=== PATIENT | male | born 1935 | race Caucasian/White ===

== ENCOUNTER 2017-11-26 12:00 | Inpatient (IN) | payer OTHER, BC ==
--- NOTE | 2017-11-26 12:06 | PDOC ---
History of Present Illness - General Chief Complaint: Weakness Stated Complaint: unable ambulate due to increasing dementia Time Seen by Provider: 11/26/17 12:06 History Source: Family Exam Limitations: Dementia - History of Present Illness Initial Comments: 11/26/17 13:00 Mr Lawrence is an 82 -year-old male brought into the emergency department via EMS with 2 of his daughters. Patient has a known history of diabetes, dementia. He has been confused for some time but has been noted over the course of this week to gradually decline significantly. The patient last went for a walk outside 6 days ago. Since then he's wanted only to lay in bed. He has not been getting up to go to the bathroom, he's been soiling himself. Patient's memory has been worsened. Patient is aggressive with his home health aid. She is unable to control him. 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 GENERAL/CONSTITUTIONAL: No: fever, chills, weakness, loss of appetite. HEAD, EYES, EARS, NOSE AND THROAT: No: change in vision, ear pain, discharge, sore throat, throat swelling. CARDIOVASCULAR: No: chest pain, lightheadedness, palpitations, syncope RESPIRATORY: No: cough, shortness of breath, wheezing, hemoptysis, stridor. GASTROINTESTINAL: No: nausea, vomiting, diarrhea, abdominal cramping, rectal bleeding, constipation. GENITOURINARY: Yes: Seated in soiled clothing No: dysuria, hematuria, frequency , urgency, flank pain. MUSCULOSKELETAL: No: back pain, neck pain, joint pain, muscle swelling or pain SKIN: Yes: buttock decubiti No: lesions, pallor, rash or easy bruising. NEUROLOGIC: Yes: Confusion, aggressive behavior No: headache, vertigo, paresthesias, weakness ENDOCRINE: No: unexplained weight gain or loss HEMATOLOGIC/LYMPHATIC: No: anemia, easy bleeding, swelling nodes. GENERAL: The patient is in no acute distress. HEAD: Normal with no signs of trauma. EYES: PERRLA, EOMI, sclera anicteric, conjunctiva clear. ENT: Ears normal, nares patent, oropharynx clear without exudates. Moist mucous membranes. NECK: Normal range of motion, supple LUNGS: Breath sounds equal, clear to auscultation bilaterally. No wheezes, and no crackles. HEART:Regular rate and rhythm, normal S1 and S2 without murmur, rub or gallop. ABDOMEN: Soft, nontender, normoactive bowel sounds. No guarding, no rebound. EXTREMITIES: Normal range of motion, no edema. No clubbing or cyanosis. No erythema, or tenderness. NEUROLOGICAL: Cranial nerves II through XII grossly intact. Studdering, labile behaviour, moves all extremities MUSCULOSKELETAL: Back non-tender to palpation, no CVA tenderness SKIN: 2 x 2 cm decubiti, skin breakdown, mild surrounding erythema Past History - Past Medical History Allergies/Adverse Reactions: Allergies Allergy/AdvReac Type Severity Reaction Status Date / Time hydrochlorothiazide Allergy Intermediate Delirium Verified 11/26/17 12:02 Penicillins Allergy Verified 11/26/17 12:02 Home Medications: Ambulatory Orders Atorvastatin Ca [Lipitor] 20 mg PO DAILY 05/09/12 Clopidogrel Bisulfate [Plavix -] 75 mg PO DAILY 05/09/12 Lisinopril [Prinivil] 10 mg PO DAILY 05/09/12 Insulin Aspart [Novolog Flexpen] 4 - 7 unit SQ QID #5 pen 01/20/17 Donepezil HCl 5 mg PO HS 11/26/17 Finasteride 5 mg PO DAILY 11/26/17 Furosemide [Lasix] 20 mg PO ASDIR 11/26/17 Insulin Glargine,Hum.rec.anlog [Lantus Solostar PEN (NF)] 15 units SQ HS Memantine HCl [Namenda Xr] 28 mg PO DAILY 11/26/17 Quetiapine Fumarate [Seroquel] 0 mg PO HS 11/26/17 Trazodone HCl 100 mg PO HS 11/26/17 Anemia: No Asthma: No Cancer: No Cardiac Disorders: Yes (stents inserted 2009) CVA: No COPD: No CHF: No Dementia: Yes Diabetes: Yes (x10 yrs) GI Disorders: No Disorders: No HTN: Yes Hypercholesterolemia: Yes Liver Disease: No Seizures: No Thyroid Disease: No - Surgical History Abdominal Surgery: Yes (Colon resection as an ) Appendectomy: Yes Cardiac Surgery: No Cholecystectomy: No Lung Surgery: No Neurologic Surgery: No Orthopedic Surgery: No - Suicide/Smoking/Psychosocial Hx Smoking History: Former smoker Have you smoked in the past 12 months: No If you are a former smoker, when did you quit?: 25 yrs Information on smoking cessation initiated: No Hx Alcohol Use: No Drug/Substance Use Hx: No Substance Use Type: None Hx Substance Use Treatment: No ED Treatment Course - LABORATORY CBC & Chemistry Diagram: 11/26/17 13:10 11/26/17 13:10 Medical Decision Making - Medical Decision Making 11/26/17 13:15 This is an 82-year-old male presented to emergency department due to rapid progressive decline in his behavior. Differential diagnosis includes but is not limited to: Progression of dementia, urinary tract infection, pneumonia Will do: Labs, urinalysis, urine culture Will do chest x-ray Will gently hydrate. Will send for blood cultures. Will reassess 11/26/17 14:29 EKG Sinus rhythm, rate of 71 bpm, left axis deviation, right bundle branch block, no ST elevations, artifact at baseline, 11/26/17 14:31 Laboratory Tests 11/26/17 11/26/17 11/26/17 13:10 13:10 13:10 WBC 8.4 Hgb 11.8 Hct 35.1 L Plt Count 219 Neutrophils % 85.5 H Lymphocytes % 7.3 L Sodium 138 Potassium 3.7 Chloride 108 H Carbon Dioxide 27 BUN 26 H Creatinine 1.1 Random Glucose 169 H D Alkaline Phosphatase 83 Troponin I Urine Ketones Negative Urine Blood 1+ H Urine Nitrite Negative Ur Leukocyte Esterase 2+ H Urine RBC 5-8 Urine WBC 80-100 Acetone, Qual Negative 11/26/17 13:10 WBC Hgb Hct Plt Count Neutrophils % Lymphocytes % Sodium Potassium Chloride Carbon Dioxide BUN Creatinine Random Glucose Alkaline Phosphatase Troponin I 0.05 Urine Ketones Urine Blood Urine Nitrite Ur Leukocyte Esterase Urine RBC Urine WBC Acetone, Qual Chest x-ray: Increased interstitial lung findings, scarring or atelectasis at the right base. Possible bronchiectasis at the left base. Prominent mediastinum. Pt is much calmer now HAs eaten Pt symptoms possibly due to UTI + baseline dementia Will give Levaquin (pt has ? allergic reaction to penicillins) Case reviewed with Hospitalists Will admit to med surg Clinical impression: UTI, initial presentation progressive decline in functioning due to underlying dementia, initial presentation *DC/Admit/Observation/Transfer Diagnosis at time of Disposition: Confusion UTI (urinary tract infection) Qualifiers: Urinary tract infection type: site unspecified Hematuria presence: without hematuria Qualified Code(s): N39.0 - Urinary tract infection, site not specified - Discharge Dispostion Condition at time of disposition: Stable Admit: Yes - Referrals - Patient Instructions - Post Discharge Activity
[2017-11-26 12:07] VITALS: BMI 24.4
[2017-11-26] MEDS ORDERED: SODIUM CHLORIDE 1,000 ML IV STA (12:34)
[2017-11-26] MEDS ORDERED: HEMOQUE TEST 1 EACH EACH ONE ×3 (13:25→17:00)
[2017-11-26 13:32] LABS: BASO % 0.3 % (0-2.0); EOS % 0.5 % (0-4.5); HEMATOCRIT 35.1 % (35.4-49); HEMOGLOBIN 11.8 GM/dl (11.7-16.9); LYMPH % 7.3 % (8-40); MCH 30.3 pg (25.7-33.7); MCHC 33.7 g/dl (32.0-35.9); MEAN CELL VOLUME 89.8 fl (80-96); MEAN PLT VOLUME 8.5 fl (7.5-11.1); MONO % 6.4 % (3.8-10.2); NEUT % 85.5 % (42.8-82.8); PLATELET COUNT 219 K/MM3 (134-434); RBC 3.91 M/mm3 (4.00-5.60); RDW 13.9 % (11.9-15.9); WHITE BLOOD COUNT 8.4 K/mm3 (4.0-10.8)
[2017-11-26 13:33] LABS: URINE BILIRUBIN Negative (NEGATIVE); URINE GLUCOSE (UA) Negative (NEGATIVE); URINE KETONE Negative (NEGATIVE); URINE NITRITE Negative (NEGATIVE); URINE PROTEIN Negative (NEGATIVE); URINE UROBILINOGEN 0.2 (0.2-1.0)
[2017-11-26 13:35] LABS: URINE APPEARANCE SL CLOUDY; URINE BLOOD 1+ (NEGATIVE); URINE COLOR AMBER; URINE LEUK ESTERASE 2+ (NEGATIVE)
[2017-11-26 13:42] LABS: ACETONE SERUM NEGATIVE (NEGATIVE)
[2017-11-26 13:48] LABS: ALBUMIN 3.2 g/dl (3.5-5.0); ALK PHOS 83 U/L (32-92); AMYLASE 76 U/L (25-125); ANION GAP 3 (8-16); BILIRUBIN,TOTAL 0.7 mg/dl (0.2-1.0); BLOOD UREA NITROGEN 26 mg/dl (7-18); CALCIUM 8.1 mg/dl (8.4-10.2); CHLORIDE 108 mmol/L (98-107); CO2 27 mmol/L (22-28); CREATININE 1.1 mg/dl (0.6-1.3); GLUCOSE,RANDOM 169 mg/dl (74-106); POTASSIUM 3.7 mmol/L (3.5-5.1); SGOT/AST 21 U/L (10-42); SGPT/ALT 18 U/L (10-40); SODIUM 138 mmol/L (136-145); TOT PROT 6.1 g/dl (6.4-8.3)
[2017-11-26 14:15] LABS: EPI CELLS FEW /HPF; URINE WBC 80-100 (0-2)
[2017-11-26 15:11] LABS: LIPASE 109 U/L (73-393)
[2017-11-26] MEDS ORDERED: INSULIN (NOVOLOG) ASPART 100 UNITS/ML 10ML VIAL ONE (18:18)
[2017-11-26] MEDS: INSULIN SLIDING SCALE (NOVOLOG) 1 VIAL SQ SCH ×2 (18:22→21:47)
--- NOTE | 2017-11-26 18:37 | EKG ---
Test Reason : Blood Pressure : / mmHG Vent. Rate : 071 BPM Atrial Rate : 071 BPM P-R Int : 138 ms QRS Dur : 140 ms QT Int : 420 ms P-R-T Axes : 008 -51 -25 degrees QTc Int : 456 ms SINUS RHYTHM WITH MARKED SINUS ARRHYTHMIA RIGHT BUNDLE BRANCH BLOCK LEFT ANTERIOR FASCICULAR BLOCK BIFASCICULAR BLOCK T WAVE ABNORMALITY, CONSIDER INFERIOR ISCHEMIA ABNORMAL ECG NO PREVIOUS ECGS AVAILABLE Confirmed by JORJE MEJIA, NGUYỄN ([id number]) on 11/26/2017 6:36:45 PM Referred By: DAVID MERA Confirmed By:NGUYỄN RECINOS MD
--- NOTE | 2017-11-26 19:19 | HP ---
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 Cardiovascular: Yes: CAD, HTN, Hyperlipdemia Endocrine: Yes: Diabetes Mellitus - Past Surgical History Past Surgical History: Yes: Appendectomy, Stent Additional Past Surgical History: Colon Resection as a child - Advance Directives Advance Directives: Yes: Living Will, Health Care Proxy - Smoking History Smoking history: Former smoker Have you smoked in the past 12 months: No If you are a former smoker, when did you quit?: 40 YEARS AGO - Alcohol/Substance Use Hx Alcohol Use: No History of Substance Use: reports: None - Social History Usual Living Arrangement: Yes: With Parent, With Child ADL: Family Assistance History of Recent Travel: No Home Medications - Allergies Allergies/Adverse Reactions: Allergies Allergy/AdvReac Type Severity Reaction Status Date / Time hydrochlorothiazide Allergy Intermediate Delirium Verified 11/26/17 12:02 Penicillins Allergy Verified 11/26/17 12:02 - Home Medications Home Medications: Ambulatory Orders Atorvastatin Ca [Lipitor] 20 mg PO DAILY 05/09/12 Clopidogrel Bisulfate [Plavix -] 75 mg PO DAILY 05/09/12 Lisinopril [Prinivil] 10 mg PO DAILY 05/09/12 Insulin Aspart [Novolog Flexpen] 4 - 7 unit SQ QID #5 pen 01/20/17 Donepezil HCl 5 mg PO HS 11/26/17 Finasteride 5 mg PO DAILY 11/26/17 Furosemide [Lasix] 20 mg PO ASDIR 11/26/17 Insulin Glargine,Hum.rec.anlog [Lantus Solostar PEN (NF)] 15 units SQ HS Memantine HCl [Namenda Xr] 28 mg PO DAILY 11/26/17 Quetiapine Fumarate [Seroquel -] 25 mg PO HS 11/26/17 Trazodone HCl 100 mg PO HS 11/26/17 Family Disease History - Family Disease History Family History: Unable to Obtain Review of Systems Unable to obtain ROS, reason: Dementia Physical Examination Vital Signs: Vital Signs Temperature 98.2 F 11/26/17 17:31 Pulse Rate 72 11/26/17 17:31 Respiratory Rate 19 11/26/17 17:31 Blood Pressure 148/62 11/26/17 17:31 O2 Sat by Pulse Oximetry (%) 95 11/26/17 17:03 Constitutional: Yes: Well Nourished, No Distress, Calm Eyes: Yes: WNL, Conjunctiva Clear, EOM Intact, PERRL HENT: Yes: WNL, Atraumatic, Normocephalic Neck: Yes: WNL, Supple, Trachea Midline Cardiovascular: Yes: Pulse Irregular, S1, S2 Labs: CBC, BMP 11/26/17 13:10 11/26/17 13:10 Hospitalist Screening - Colonoscopy Questionnaire Colonoscopy Questionnaire: Colonoscopy Questionnaire
[2017-11-26] MEDS ORDERED: PNEUMOC 13-VAL CONJ-DIP CRM/PF 0.5 ML DISP.SYRIN IM ONE (20:00)
[2017-11-26] MEDS: HEPARIN NA (PORCINE) 5,000 UNITS/ML 1ML VIAL SQ SCH (21:43)
[2017-11-26] MEDS: QUEtiapine FUMARATE 25 MG TABLET (FP) PO SCH (21:43)
[2017-11-26] MEDS: DONEPEZIL HCL 5 MG TABLET (FP) PO SCH (21:43)
[2017-11-26] MEDS: INSULIN DETEMIR 100 UNITS/ML MDV SQ SCH (21:48)
[2017-11-26] MEDS ORDERED: traZODone HCL 100 MG TABLET (FP) PO SCH (22:00)
[2017-11-27] MEDS: HEPARIN NA (PORCINE) 5,000 UNITS/ML 1ML VIAL SQ SCH ×3 (06:14→21:36)
[2017-11-27] MEDS: INSULIN SLIDING SCALE (NOVOLOG) 1 VIAL SQ SCH ×3 (06:38→21:36)
[2017-11-27 08:50] LABS: BASO % 0.4 % (0-2.0); EOS % 1.4 % (0-4.5); HEMATOCRIT 34.2 % (35.4-49); HEMOGLOBIN 11.1 GM/dl (11.7-16.9); LYMPH % 14.4 % (8-40); MCH 29.4 pg (25.7-33.7); MCHC 32.6 g/dl (32.0-35.9); MEAN CELL VOLUME 90.2 fl (80-96); MEAN PLT VOLUME 8.6 fl (7.5-11.1); MONO % 8.3 % (3.8-10.2); NEUT % 75.5 % (42.8-82.8); PLATELET COUNT 220 K/MM3 (134-434); RBC 3.79 M/mm3 (4.00-5.60); WHITE BLOOD COUNT 8.1 K/mm3 (4.0-10.8)
[2017-11-27 08:53] LABS: ALBUMIN 2.9 g/dl (3.5-5.0); ALK PHOS 73 U/L (32-92); ANION GAP 5 (8-16); BLOOD UREA NITROGEN 25 mg/dl (7-18); CALCIUM 7.9 mg/dl (8.4-10.2); CHLORIDE 112 mmol/L (98-107); CO2 24 mmol/L (22-28); GLUCOSE,RANDOM 73 mg/dl (74-106); MAGNESIUM 1.6 mg/dL (1.8-2.4); PHOSPHOROUS 3.1 mg/dl (2.5-4.6); POTASSIUM 3.2 mmol/L (3.5-5.1); SGOT/AST 19 U/L (10-42); SGPT/ALT 15 U/L (10-40); SODIUM 141 mmol/L (136-145); TOT PROT 5.5 g/dl (6.4-8.3)
[2017-11-27] MEDS: FINASTERIDE 5 MG TABLET (FP) PO SCH (09:49)
[2017-11-27] MEDS: FUROSEMIDE 20 MG TABLET (FP) PO SCH (09:49)
[2017-11-27] MEDS: LISINOPRIL 10 MG TABLET (FP) PO SCH (09:49)
[2017-11-27] MEDS: CLOPIDOGREL BISULFATE 75 MG TABLET (FP) PO SCH (09:49)
--- NOTE | 2017-11-27 11:49 | PN ---
Physical Exam: SUBJECTIVE: Patient seen and examined oob to chair. Two of his adult daughters present. He does not recognize them nor know their names (baseline). Voices no complaints. Answers no to all ROS questions. OBJECTIVE: Vital Signs Period Temp Pulse Resp BP Sys/Hernadez Pulse Ox Last 24 Hr 98 F-99.4 F 68-80 16-19 126-156/62-80 93-96 GENERAL/NEURO: A&O x 1. In no apparent distress. LUNGS: CTA HEART: Regular rate and rhythm, S1, S2 ABDOMEN: Soft, nontender, nondistended, normoactive bowel sounds, EXTREMITIES: 2+ pulses, warm, well-perfused, no edema. NEUROLOGICAL: Cranial nerves II through XII grossly intact. Normal speech, gait not observed. Laboratory Results - last 24 hr 11/26/17 11/26/17 11/26/17 13:10 13:10 13:10 WBC 8.4 RBC 3.91 L Hgb 11.8 Hct 35.1 L MCV 89.8 MCH 30.3 MCHC 33.7 RDW 13.9 Plt Count 219 MPV 8.5 Neutrophils % 85.5 H Lymphocytes % 7.3 L Monocytes % 6.4 Eosinophils % 0.5 Basophils % 0.3 Sodium 138 Potassium 3.7 Chloride 108 H Carbon Dioxide 27 Anion Gap 3 L BUN 26 H Creatinine 1.1 Creat Clearance w eGFR > 60 POC Glucometer Random Glucose 169 H D Lactic Acid Calcium 8.1 L Phosphorus Magnesium Total Bilirubin 0.7 AST 21 ALT 18 D Alkaline Phosphatase 83 Troponin I Total Protein 6.1 L Albumin 3.2 L Total Amylase 76 Lipase 109 Urine Color Johana Urine Appearance Sl cloudy Urine pH 5.0 D Ur Specific Dickens 1.015 Urine Protein Negative Urine Glucose (UA) Negative Urine Ketones Negative Urine Blood 1+ H Urine Nitrite Negative Urine Bilirubin Negative Urine Urobilinogen 0.2 Ur Leukocyte Esterase 2+ H Urine RBC 5-8 Urine WBC 80-100 Ur Epithelial Cells Few Acetone, Qual Negative 11/26/17 11/26/17 11/26/17 13:10 13:10 13:31 WBC RBC Hgb Hct MCV MCH MCHC RDW Plt Count MPV Neutrophils % Lymphocytes % Monocytes % Eosinophils % Basophils % Sodium Potassium Chloride Carbon Dioxide Anion Gap BUN Creatinine Creat Clearance w eGFR POC Glucometer [phone] Random Glucose Lactic Acid 1.1 Calcium Phosphorus Magnesium Total Bilirubin AST ALT Alkaline Phosphatase Troponin I 0.05 Total Protein Albumin Total Amylase Lipase Urine Color Urine Appearance Urine pH Ur Specific Dickens Urine Protein Urine Glucose (UA) Urine Ketones Urine Blood Urine Nitrite Urine Bilirubin Urine Urobilinogen Ur Leukocyte Esterase Urine RBC Urine WBC Ur Epithelial Cells Acetone, Qual 11/26/17 11/26/17 11/26/17 17:04 18:07 21:46 WBC RBC Hgb Hct MCV MCH MCHC RDW Plt Count MPV Neutrophils % Lymphocytes % Monocytes % Eosinophils % Basophils % Sodium Potassium Chloride Carbon Dioxide Anion Gap BUN Creatinine Creat Clearance w eGFR POC Glucometer [phone] 124 Random Glucose Lactic Acid Calcium Phosphorus Magnesium Total Bilirubin AST ALT Alkaline Phosphatase Troponin I Total Protein Albumin Total Amylase Lipase Urine Color Urine Appearance Urine pH Ur Specific Dickens Urine Protein Urine Glucose (UA) Urine Ketones Urine Blood Urine Nitrite Urine Bilirubin Urine Urobilinogen Ur Leukocyte Esterase Urine RBC Urine WBC Ur Epithelial Cells Acetone, Qual 11/27/17 11/27/17 11/27/17 06:00 06:00 06:25 WBC 8.1 RBC 3.79 L Hgb 11.1 L Hct 34.2 L MCV 90.2 MCH 29.4 MCHC 32.6 RDW 14.0 Plt Count 220 MPV 8.6 Neutrophils % 75.5 Lymphocytes % 14.4 D Monocytes % 8.3 Eosinophils % 1.4 D Basophils % 0.4 Sodium 141 Potassium 3.2 L Chloride 112 H Carbon Dioxide 24 Anion Gap 5 L BUN 25 H Creatinine 1.0 Creat Clearance w eGFR > 60 POC Glucometer 80 Random Glucose 73 L D Lactic Acid Calcium 7.9 L Phosphorus 3.1 Magnesium 1.6 L Total Bilirubin 1.0 D AST 19 ALT 15 Alkaline Phosphatase 73 Troponin I Total Protein 5.5 L Albumin 2.9 L Total Amylase Lipase Urine Color Urine Appearance Urine pH Ur Specific Dickens Urine Protein Urine Glucose (UA) Urine Ketones Urine Blood Urine Nitrite Urine Bilirubin Urine Urobilinogen Ur Leukocyte Esterase Urine RBC Urine WBC Ur Epithelial Cells Acetone, Qual Active Medications Generic Name Dose Route Start Last Admin Trade Name Freq PRN Reason Stop Dose Admin Atorvastatin Calcium 20 mg 11/27/17 22:00 Lipitor - PO HS [facility] Clopidogrel Bisulfate 75 mg 11/27/17 10:00 11/27/17 09:49 Plavix - PO 75 mg DAILY [facility] Administration Donepezil HCl 5 mg 11/26/17 22:00 11/26/17 21:43 Aricept - PO 5 mg HS [facility] Administration Finasteride 5 mg 11/27/17 10:00 11/27/17 09:49 Proscar - PO 5 mg DAILY [facility] Administration Furosemide 20 mg 11/27/17 10:00 11/27/17 09:49 Lasix - PO 20 mg DAILY [facility] Administration Heparin Sodium (Porcine) 5,000 unit 11/26/17 22:00 11/27/17 06:14 Heparin - SQ 5,000 unit TID [facility] Administration Levofloxacin 500 mg in 100 mls @ 100 mls/hr 11/27/17 10:00 11/27/17 09:49 Levaquin 500 Mg Premixed Ivpb - IVPB 100 mls/hr DAILY [facility] Administration Insulin Aspart 1 vial 11/26/17 16:30 11/27/17 06:38 Novolog Vial Sliding Scale - SQ Not Given ACHS [facility] Protocol Insulin Detemir 15 units 11/26/17 22:00 11/26/17 21:48 Levemir Vial SQ 15 units HS [facility] Administration Lisinopril 10 mg 11/27/17 10:00 11/27/17 09:49 Prinivil PO 10 mg DAILY [facility] Administration Non-Formulary Medication 28 mg 11/27/17 10:00 Memantine Hcl [Namenda Xr] PO DAILY [facility] Quetiapine Fumarate 25 mg 11/26/17 22:00 11/26/17 21:43 Seroquel - PO 25 mg HS [facility] Administration ASSESSMENT/PLAN 82 year-old male with a PMH significant for HTN, HLD, CAD s/p stents (2009), IDDM, and dementia. Admitted for metabolic encephalopathy secondary to UTI. Metabolic encephalopathy UTI --continue empiric levofloxacin --culture pending Dementia with behavior disturbance --at baseline is aggressive at times --started several days ago on Seroquel qhs by Dr. Arias --hold trazadone at night for now, continue seroquel --continue Namenda, Aricept Hypertension --continue lisinopril, lasix Hyperlipidemia --continue Lipitor Coronary artery disease s/p stents --continue Plavix IDDM --Levemir --Novolog sliding scale coverage BPH --continue Proscar DVT prophylaxis: subq heparin Physical therapy Dispo: continues to require inpatient care. Full code. Should discuss goals of care with family. Visit type - Emergency Visit Emergency Visit: Yes ED Registration Date: 11/26/17 Care time: The patient presented to the Emergency Department on the above date and was hospitalized for further evaluation of their emergent condition. - New Patient This patient is new to me today: Yes Date on this admission: 11/28/17 - Critical Care Critical Care patient: No
[2017-11-27] MEDS ORDERED: PT OWN MED DRAWER 7, Y5N ONE (12:24)
[2017-11-27] MEDS ORDERED: MAGNESIUM SULF 50% (8.12 MEQ/2 ML-1 GM VIAL) IVPB ONE (13:04)
[2017-11-27] MEDS ORDERED: POTASSIUM CHLORIDE TABS 20 MEQ TABLET.ER (FP) PO SCH (13:15)
[2017-11-27] MEDS: POTASSIUM CHLORIDE TABS 20 MEQ TABLET.ER (FP) PO SCH ×2 (13:30→19:41)
[2017-11-27] MEDS ORDERED: INSULIN (NOVOLOG) ASPART 100 UNITS/ML 10ML VIAL ONE (17:41)
[2017-11-27] MEDS: DONEPEZIL HCL 5 MG TABLET (FP) PO SCH (21:36)
[2017-11-27] MEDS: ATORVASTATIN CA 20 MG TABLET (FP) PO SCH (21:36)
[2017-11-27] MEDS: INSULIN DETEMIR 100 UNITS/ML MDV SQ SCH (21:37)
[2017-11-27] MEDS: QUEtiapine FUMARATE 25 MG TABLET (FP) PO SCH (21:37)
[2017-11-28] MEDS: INSULIN SLIDING SCALE (NOVOLOG) 1 VIAL SQ SCH ×4 (06:30→22:38)
[2017-11-28] MEDS: HEPARIN NA (PORCINE) 5,000 UNITS/ML 1ML VIAL SQ SCH ×3 (06:30→22:38)
--- NOTE | 2017-11-28 09:42 | PN ---
Physical Exam: SUBJECTIVE: Patient seen and examined, voices no complaints wants to go home OBJECTIVE:patient is a 82-year-old, with a past medical history of hypertension , hyperlipidemia, coronary artery disease S/P stents (2009), and dementia. Patient was admitted from the emergency department for metabolic encephalopathy secondary to urinary tract infection. Vital Signs Period Temp Pulse Resp BP Sys/Hernadez Pulse Ox Last 24 Hr 98.3 F-99.6 F 64-80 18-19 141-156/61-78 93-96 GENERAL: The patient is awake, alert, and oriented person and place, in no acute distress. HEAD: Normal with no signs of trauma. EYES: PERRL, extraocular movements intact, sclera anicteric, conjunctiva clear. No ptosis. ENT: Ears normal, nares patent, oropharynx clear without exudates, moist mucous membranes. NECK: Trachea midline, full range of motion, supple. LUNGS: Breath sounds equal, clear to auscultation bilaterally, no wheezes, no crackles, no accessory muscle use. HEART: Regular rate and rhythm, S1, S2 without murmur, rub or gallop. ABDOMEN: Soft, nontender, nondistended, normoactive bowel sounds, no guarding, no rebound, no hepatosplenomegaly, no masses. EXTREMITIES: 2+ pulses, warm, well-perfused, no edema. posterior distal left lower extremity, 3 cm of denuded skin noted. NEUROLOGICAL: Cranial nerves II through XII grossly intact. Normal speech, gait not observed. PSYCH: Normal mood, normal affect. SKIN: 2 cm stage II noted to right buttock, Allevyn dressing ordered, Warm, dry , normal turgor, no rashes or lesions noted Laboratory Results - last 24 hr 11/27/17 11/27/17 11/28/17 17:39 21:11 06:29 POC Glucometer 283 145 145 Active Medications Generic Name Dose Route Start Last Admin Trade Name Freq PRN Reason Stop Dose Admin Atorvastatin Calcium 20 mg 11/27/17 22:00 11/27/17 21:36 Lipitor - PO 20 mg HS [facility] Administration Clopidogrel Bisulfate 75 mg 11/27/17 10:00 11/27/17 09:49 Plavix - PO 75 mg DAILY [facility] Administration Donepezil HCl 5 mg 11/26/17 22:00 03/18/18 21:36 Aricept - PO 5 mg HS [facility] Administration Finasteride 5 mg 11/27/17 10:00 11/27/17 09:49 Proscar - PO 5 mg DAILY [facility] Administration Furosemide 20 mg 11/27/17 10:00 11/27/17 09:49 Lasix - PO 20 mg DAILY [facility] Administration Heparin Sodium (Porcine) 5,000 unit 11/26/17 22:00 11/28/17 06:30 Heparin - SQ 5,000 unit TID [facility] Administration Levofloxacin 500 mg in 100 mls @ 100 mls/hr 11/27/17 10:00 11/27/17 09:49 Levaquin 500 Mg Premixed Ivpb - IVPB 100 mls/hr DAILY [facility] Administration Insulin Aspart 1 vial 11/26/17 16:30 11/28/17 06:30 Novolog Vial Sliding Scale - SQ Not Given ACHS [facility] Protocol Insulin Detemir 15 units 11/26/17 22:00 11/27/17 21:37 Levemir Vial SQ 15 units HS [facility] Administration Lisinopril 10 mg 11/27/17 10:00 11/27/17 09:49 Prinivil PO 10 mg DAILY [facility] Administration Non-Formulary Medication 28 mg 11/27/17 10:00 Memantine Hcl [Namenda Xr] PO DAILY [facility] Quetiapine Fumarate 25 mg 11/26/17 22:00 11/27/17 21:37 Seroquel - PO 25 mg HS [facility] Administration Microbiology 11/26/17 13:10 Urine - Urine Clean Catch Urine Culture - Preliminary Presumptive Mssa (Pbp2a Neg) 11/26/17 13:10 Blood - Peripheral Venous Blood Culture - Preliminary NO GROWTH OBTAINED AFTER 24 HOURS, INCUBATION TO CONTINUE FOR 4 DAYS. 11/26/17 13:00 Blood - Peripheral Venous Blood Culture - Preliminary NO GROWTH OBTAINED AFTER 24 HOURS, INCUBATION TO CONTINUE FOR 4 DAYS. ASSESSMENT/PLAN: 1) neuro Metabolic encephalopathy - secondary to urinary tract infection, continue Levaquin - continue fall precautions dementia - Continue Seroquel, Namenda and Aricept 2) cardiovascular hypertension - continue lisinopril and lasix hyperlipidemia - continue lipitor coronary artery disease - continue plavix 3) urinary tract infection - urine culture prelim mssa, continue levaquin - pt afebrile, no leukocytosis noted BPH - continue proscar 4) endo IDDM - levemir and novolog sliding scale DVT prophylaxis: subq heparin Physical therapy Dispo: continues to require inpatient care. Full code. Should discuss goals of care with family. Visit type - Emergency Visit Emergency Visit: Yes ED Registration Date: 11/26/17 Care time: The patient presented to the Emergency Department on the above date and was hospitalized for further evaluation of their emergent condition. - New Patient This patient is new to me today: Yes Date on this admission: 11/28/17 - Critical Care Critical Care patient: No - Discharge Referral Referred to [facility] Med P.C.: No
[2017-11-28] MEDS: PATIENT'S OWN MEDICATION (NON-FORMULARY) (Memantine Hcl [Namenda Xr] 28 MG) PO SCH (10:00)
[2017-11-28 10:33] LABS: ALBUMIN 2.9 g/dl (3.5-5.0); ALK PHOS 76 U/L (32-92); ANION GAP 5 (8-16); BILIRUBIN,TOTAL 1.1 mg/dl (0.2-1.0); BLOOD UREA NITROGEN 21 mg/dl (7-18); CALCIUM 8.2 mg/dl (8.4-10.2); CHLORIDE 110 mmol/L (98-107); CO2 25 mmol/L (22-28); CREATININE 0.9 mg/dl (0.6-1.3); GLUCOSE,RANDOM 205 mg/dl (74-106); MAGNESIUM 1.7 mg/dL (1.8-2.4); PHOSPHOROUS 2.5 mg/dl (2.5-4.6); POTASSIUM 3.8 mmol/L (3.5-5.1); SGOT/AST 18 U/L (10-42); SGPT/ALT 17 U/L (10-40); SODIUM 140 mmol/L (136-145); TOT PROT 5.4 g/dl (6.4-8.3)
[2017-11-28] MEDS: FINASTERIDE 5 MG TABLET (FP) PO SCH (10:55)
[2017-11-28] MEDS: CLOPIDOGREL BISULFATE 75 MG TABLET (FP) PO SCH (10:55)
[2017-11-28] MEDS: LISINOPRIL 10 MG TABLET (FP) PO SCH (10:55)
[2017-11-28] MEDS: FUROSEMIDE 20 MG TABLET (FP) PO SCH (10:55)
[2017-11-28] MEDS ORDERED: MAGNESIUM SULFATE 2 GM in SODIUM CHLORIDE 100 ML IVPB ONE (11:13)
[2017-11-28] MEDS ORDERED: MAGNESIUM SULFATE IN WATER 2 GM/50 ML IVPB IVPB ONE (11:45)
[2017-11-28 12:57] LABS: BASO % 0.2 % (0-2.0); EOS % 0.8 % (0-4.5); HEMATOCRIT 34.7 % (35.4-49); HEMOGLOBIN 11.6 GM/dl (11.7-16.9); LYMPH % 7.8 % (8-40); MCHC 33.3 g/dl (32.0-35.9); MEAN CELL VOLUME 90.3 fl (80-96); MEAN PLT VOLUME 8.9 fl (7.5-11.1); MONO % 7.9 % (3.8-10.2); NEUT % 83.3 % (42.8-82.8); PLATELET COUNT 202 K/MM3 (134-434); RBC 3.85 M/mm3 (4.00-5.60); WHITE BLOOD COUNT 8.7 K/mm3 (4.0-10.8)
[2017-11-28] MEDS ORDERED: POTASSIUM CHLORIDE TABS 20 MEQ TABLET.ER (FP) PO ONE (13:00)
[2017-11-28] MEDS ORDERED: PT OWN MED DRAWER 7, Y5N ONE (17:31)
[2017-11-28] MEDS: QUEtiapine FUMARATE 25 MG TABLET (FP) PO SCH (22:35)
[2017-11-28] MEDS: MUPIROCIN 2% TOPICAL OINTMENT 22 GM TUBE TP SCH (22:35)
[2017-11-28] MEDS: ATORVASTATIN CA 20 MG TABLET (FP) PO SCH (22:35)
[2017-11-28] MEDS: DONEPEZIL HCL 5 MG TABLET (FP) PO SCH (22:35)
[2017-11-28] MEDS: INSULIN DETEMIR 100 UNITS/ML MDV SQ SCH (22:38)
[2017-11-29] MEDS: INSULIN SLIDING SCALE (NOVOLOG) 1 VIAL SQ SCH ×3 (06:51→17:05)
[2017-11-29] MEDS: HEPARIN NA (PORCINE) 5,000 UNITS/ML 1ML VIAL SQ SCH ×2 (06:51→14:16)
[2017-11-29] MEDS: MUPIROCIN 2% TOPICAL OINTMENT 22 GM TUBE TP SCH ×2 (08:16→10:03)
[2017-11-29] MEDS: PATIENT'S OWN MEDICATION (NON-FORMULARY) (Memantine Hcl [Namenda Xr] 28 MG) PO SCH ×2 (08:16→10:04)
[2017-11-29 08:41] LABS: BASO % 0.6 % (0-2.0); HEMATOCRIT 34.4 % (35.4-49); HEMOGLOBIN 11.3 GM/dl (11.7-16.9); MCH 29.4 pg (25.7-33.7); MCHC 32.8 g/dl (32.0-35.9); MEAN CELL VOLUME 89.7 fl (80-96); MEAN PLT VOLUME 8.2 fl (7.5-11.1); MONO % 11.1 % (3.8-10.2); NEUT % 70.3 % (42.8-82.8); PLATELET COUNT 198 K/MM3 (134-434); RBC 3.84 M/mm3 (4.00-5.60); RDW 13.6 % (11.9-15.9); WHITE BLOOD COUNT 6.9 K/mm3 (4.0-10.8)
[2017-11-29 08:47] LABS: ANION GAP 2 (8-16); BLOOD UREA NITROGEN 21 mg/dl (7-18); CHLORIDE 111 mmol/L (98-107); CO2 27 mmol/L (22-28); GLUCOSE,RANDOM 104 mg/dl (74-106); MAGNESIUM 1.7 mg/dL (1.8-2.4); PHOSPHOROUS 3.2 mg/dl (2.5-4.6); POTASSIUM 3.7 mmol/L (3.5-5.1); SODIUM 140 mmol/L (136-145)
[2017-11-29] MEDS: FINASTERIDE 5 MG TABLET (FP) PO SCH (10:03)
[2017-11-29] MEDS: LISINOPRIL 10 MG TABLET (FP) PO SCH (10:03)
[2017-11-29] MEDS: CLOPIDOGREL BISULFATE 75 MG TABLET (FP) PO SCH (10:03)
[2017-11-29] MEDS: FUROSEMIDE 20 MG TABLET (FP) PO SCH (10:03)
[2017-11-29] MEDS ORDERED: PT OWN MED DRAWER 7, Y5N ONE (10:08)
[2017-11-29] MEDS ORDERED: MAGNESIUM SULF 50% (8.12 MEQ/2 ML-1 GM VIAL) IVPB ONE (11:21)
[2017-11-29] MEDS ORDERED: MAGNESIUM SULFATE IN WATER 2 GM/50 ML IVPB IVPB ONE (11:30)
[2017-11-29 14:07] VITALS: BP 116/59; PULSE 81; TEMP 98.5
--- NOTE | 2017-11-29 14:44 | PN ---
Physical Exam: SUBJECTIVE: Patient seen and examined. No complaints on exam. Remains somewhat confused and uncooperative at times. As per daughter, this is not patient's usual baseline. She states that he is normally fully ambulatory. OBJECTIVE: Vital Signs - 24 hr 3 11/28/17 11/29/17 11/29/17 22:00 06:03 09:00 Temperature 99.1 F 98.0 F Pulse Rate 68 72 Respiratory 19 18 19 Rate Blood Pressure 147/69 142/65 O2 Sat by Pulse 94 L 95 92 L Oximetry (%) 3 11/29/17 11/29/17 10:00 14:00 Temperature 98.6 F 98.5 F Pulse Rate 83 81 Respiratory 19 19 Rate Blood Pressure 140/67 116/59 O2 Sat by Pulse 92 L 94 L Oximetry (%) GENERAL: The patient is awake, alert, and fully oriented, in no acute distress. HEAD: Normal with no signs of trauma. EYES: PERRL, extraocular movements intact, sclera anicteric, conjunctiva clear. No ptosis. ENT: Ears normal, nares patent, oropharynx clear without exudates, moist mucous membranes. NECK: Trachea midline, full range of motion, supple. LUNGS: Breath sounds equal, clear to auscultation bilaterally, no wheezes, no crackles, no accessory muscle use. HEART: Regular rate and rhythm, S1, S2 without murmur, rub or gallop. ABDOMEN: Soft, nontender, nondistended, normoactive bowel sounds, no guarding, no rebound, no hepatosplenomegaly, no masses. EXTREMITIES: 2+ pulses, warm, well-perfused, no edema. NEUROLOGICAL: Cranial nerves II through XII grossly intact. Normal speech, gait not observed. PSYCH: Normal mood, normal affect. SKIN: Warm, dry, normal turgor, no rashes or lesions noted; excoriation to left and right buttocks Laboratory Results - last 24 hr 3 11/29/17 11/29/17 11/29/17 08:00 08:00 11:54 WBC 6.9 RBC 3.84 L Hgb 11.3 L Hct 34.4 L MCV 89.7 MCH 29.4 MCHC 32.8 RDW 13.6 Plt Count 198 MPV 8.2 Neutrophils % 70.3 Lymphocytes % 16.0 D 0 Monocytes % 11.1 H Eosinophils % 2.0 D Basophils % 0.6 Sodium 140 Potassium 3.7 Chloride 111 H Carbon Dioxide 27 Anion Gap 2 L BUN 21 H Creatinine 1.0 POC Glucometer 219 Random Glucose 104 D Calcium 8.0 L Phosphorus 3.2 D Magnesium 1.7 L Active Medications 3 Generic Name Dose Route Start Last Admin Trade Name Álvaroq PRN Reason Stop Dose Admin Atorvastatin Calcium 20 mg 11/27/17 22:00 11/28/17 22:35 Lipitor - PO 20 mg HS MILTON Administration Clopidogrel Bisulfate 75 mg 11/27/17 10:00 11/29/17 10:03 Plavix - PO 75 mg DAILY MIL[facility] Administration Donepezil HCl 5 mg 11/26/17 22:00 11/28/17 22:35 Aricept - PO 5 mg HS MILTON Administration Finasteride 5 mg 11/27/17 10:00 11/29/17 10:03 Proscar - PO 5 mg DAILY [facility] Administration Furosemide 20 mg 11/27/17 10:00 11/29/17 10:03 Lasix - PO 20 mg DAILY [facility] Administration Heparin Sodium (Porcine) 5,000 unit 11/26/17 22:00 11/29/17 06:51 Heparin - SQ 5,000 unit TID MIL[facility] Administration Levofloxacin 500 mg in 100 mls @ 100 mls/hr 11/27/17 10:00 11/29/17 10:04 Levaquin 500 Mg Premixed Ivpb - IVPB 100 mls/hr DAILY [facility] Administration Insulin Aspart 1 vial 11/26/17 16:30 11/29/17 12:31 Novolog Vial Sliding Scale - SQ 4 units ACHS MILTON Administration Protocol Insulin Detemir 15 units 11/26/17 22:00 11/28/17 22:38 Levemir Vial SQ 15 units HS MILTON Administration Lisinopril 10 mg 11/27/17 10:00 11/29/17 10:03 Prinivil PO 10 mg DAILY MIL[facility] Administration Mupirocin 1 applic 11/28/17 10:30 11/29/17 10:03 Bactroban 2% Ointment - TP 1 appful BID MIL[facility] Administration Non-Formulary Medication 28 mg 11/27/17 10:00 11/29/17 10:04 Memantine Hcl [Namenda Xr] PO 28 mg DAILY [facility] Administration Quetiapine Fumarate 25 mg 11/26/17 22:00 11/28/17 22:35 Seroquel - PO 25 mg HS MILTON Administration ASSESSMENT/PLAN: 82yM with PMH dementia CAD, HTN, HLD, DM presented to the ED on 11/26/17 with altered mental status. He was found to have UTI. Metabolic encephalopathy secondary to UTI. - Urine culture with beta lactamase and resistance to fluoroquinolones - awaiting C/B from DR. Negro to discuss antibiotic selection hypomagnesia - repleted with 2g IVPB HTN/HLD/CAD - cont lisinopril, lasix, lipitor plavix BPH - cont proscar dementia - cont home namenda, aricept, seroquel DVT PPX - heparin 5000u TID FEN - tolerating po - BMP/Mag in am - low sodium diet as tolerated Dispo: Pt currently requires continued inpatient management of his emergent condition. Visit type - Emergency Visit Emergency Visit: Yes ED Registration Date: 11/26/17 Care time: The patient presented to the Emergency Department on the above date and was hospitalized for further evaluation of their emergent condition. - New Patient This patient is new to me today: Yes Date on this admission: 11/29/17 - Critical Care Critical Care patient: No
[2017-11-29] MEDS ORDERED: CEFTRIAXONE 1 G/50 ML PREMIX 50 ML IVPB ONE (15:30)
--- NOTE | 2017-11-29 16:38 | DS ---
Physical Exam: SUBJECTIVE: Patient seen and examined OBJECTIVE: Vital Signs Period Temp Pulse Resp BP Sys/Hernadez Pulse Ox Last 24 Hr 98.0 F-99.1 F 68-83 18-19 116-147/59-69 92-95 PHYSICAL EXAM GENERAL: The patient is awake, alert, and fully oriented, in no acute distress. HEAD: Normal with no signs of trauma. EYES: PERRL, extraocular movements intact, sclera anicteric, conjunctiva clear. ENT: Ears normal, nares patent, oropharynx clear without exudates, moist mucous membranes. NECK: Trachea midline, full range of motion, supple. LUNGS: Breath sounds equal, clear to auscultation bilaterally, no wheezes, no crackles, no accessory muscle use. HEART: Regular rate and rhythm, S1, S2 without murmur, rub or gallop. ABDOMEN: Soft, nontender, nondistended, normoactive bowel sounds, no guarding, no rebound, no hepatosplenomegaly, no masses. EXTREMITIES: 2+ pulses, warm, well-perfused, no edema. NEUROLOGICAL: Cranial nerves II through XII grossly intact. Normal speech, gait not observed. PSYCH: Normal mood, normal affect. SKIN: Warm, dry, normal turgor, no rashes or lesions noted. LABS Laboratory Results - last 24 hr 11/28/17 11/28/17 11/29/17 16:52 22:37 06:23 WBC RBC Hgb Hct MCV MCH MCHC RDW Plt Count MPV Neutrophils % Lymphocytes % Monocytes % Eosinophils % Basophils % Sodium Potassium Chloride Carbon Dioxide Anion Gap BUN Creatinine POC Glucometer 226 202 119 Random Glucose Calcium Phosphorus Magnesium 11/29/17 11/29/17 11/29/17 08:00 08:00 11:54 WBC 6.9 RBC 3.84 L Hgb 11.3 L Hct 34.4 L MCV 89.7 MCH 29.4 MCHC 32.8 RDW 13.6 Plt Count 198 MPV 8.2 Neutrophils % 70.3 Lymphocytes % 16.0 D Monocytes % 11.1 H Eosinophils % 2.0 D Basophils % 0.6 Sodium 140 Potassium 3.7 Chloride 111 H Carbon Dioxide 27 Anion Gap 2 L BUN 21 H Creatinine 1.0 POC Glucometer 219 Random Glucose 104 D Calcium 8.0 L Phosphorus 3.2 D Magnesium 1.7 L HOSPITAL COURSE: Date of Admission:11/26/17 Date of Discharge: 11/29/17 Discharge Summary Reason For Visit: UTI, CONFUSION Current Active Problems Confusion (Acute) UTI (urinary tract infection) (Acute) Condition: Stable - Instructions Diet, Activity, Other Instructions: Return to the emergency department for new, worsening, persistent symptoms. Resume your usual diet. Finish ALL of your antibiotics (cefuroxime) Referrals: Kannan Zimmerman MD [Primary Care Provider] - 1 Week Disposition: HOME - Home Medications Comprehensive Discharge Medication List: Ambulatory Orders Atorvastatin Ca [Lipitor] 20 mg PO DAILY 05/09/12 Clopidogrel Bisulfate [Plavix -] 75 mg PO DAILY 05/09/12 Lisinopril [Prinivil] 10 mg PO DAILY 05/09/12 Insulin Aspart [Novolog Flexpen] 4 - 7 unit SQ QID #5 pen 01/20/17 Donepezil HCl 5 mg PO HS 11/26/17 Finasteride 5 mg PO DAILY 11/26/17 Furosemide [Lasix] 20 mg PO ASDIR 11/26/17 Insulin Glargine,Hum.rec.anlog [Lantus Solostar PEN -] 15 units SQ HS 11/26/17 Memantine HCl [Namenda Xr] 28 mg PO DAILY 11/26/17 Quetiapine Fumarate [Seroquel -] 25 mg PO HS 11/26/17 Trazodone HCl 100 mg PO HS 11/26/17 Cefuroxime Axetil [Ceftin -] 250 mg PO BID #12 tablet 11/29/17
== END 2017-11-29 18:30 | disposition home or self-care (01) | DRG 689 ==
LOC: SUPCPDRO 12:00 → FER 12:00 → FM/S 15:53
PROVIDERS: ADMIT Hospitalist; ATTEND Nurse Practitioner Family
DX: N39.0 Urinary tract infection, site not specified (principal); G93.41 Metabolic encephalopathy; F03.91 Unspecified dementia, unspecified severity, with behavioral disturbance; E83.42 Hypomagnesemia; I10 Essential (primary) hypertension; E78.5 Hyperlipidemia, unspecified; I25.10 Atherosclerotic heart disease of native coronary artery without angina pectoris; E11.9 Type 2 diabetes mellitus without complications; F03.90 Unspecified dementia, unspecified severity, without behavioral disturbance, psychotic disturbance, mood disturbance, and anxiety; N40.0 Benign prostatic hyperplasia without lower urinary tract symptoms; Z79.4 Long term (current) use of insulin; Z98.61 Coronary angioplasty status; Z87.891 Personal history of nicotine dependence
CPT/HCPCS: 36415; 71045-TC-FY; 80048; 80053; 81003; 81015; 82009; 82150; 82962; 83605; 83690; 83735; 84100; 84484; 85025; 87040; 87086; 87186; 90670; 93005; 97116-GP; 97161-GP; 99282-25; J1644; J7030

== ENCOUNTER 2018-08-07 14:52 | Inpatient (IN) | payer OTHER, BC ==
[2018-08-07 15:14] VITALS: BMI 25.0
[2018-08-07 16:23] LABS: URINE APPEARANCE Clear; URINE BILIRUBIN Negative (NEGATIVE); URINE COLOR Yellow; URINE GLUCOSE (UA) Negative (NEGATIVE); URINE KETONE Negative (NEGATIVE); URINE LEUK ESTERASE 1+ (NEGATIVE); URINE NITRITE Negative (NEGATIVE); URINE PROTEIN Trace (NEGATIVE); URINE UROBILINOGEN 0.2 (0.2-1.0)
[2018-08-07 16:30] LABS: BASO % 0.4 % (0-2.0); EOS % 0.8 % (0-4.5); HEMATOCRIT 34.1 % (35.4-49); HEMOGLOBIN 11.4 GM/dl (11.7-16.9); LYMPH % 5.6 % (8-40); MCH 30.1 pg (25.7-33.7); MCHC 33.4 g/dl (32.0-35.9); MEAN CELL VOLUME 90.1 fl (80-96); MEAN PLT VOLUME 8.8 fl (7.5-11.1); MONO % 7.5 % (3.8-10.2); NEUT % 85.7 % (42.8-82.8); PLATELET COUNT 227 K/MM3 (134-434); RBC 3.79 M/mm3 (4.00-5.60); RDW 13.9 % (11.9-15.9); WHITE BLOOD COUNT 8.5 K/mm3 (4.0-10.8)
--- NOTE | 2018-08-07 16:31 | PDOC ---
History of Present Illness - General Chief Complaint: Altered Mental Status Stated Complaint: increased confusion Time Seen by Provider: 08/07/18 14:53 - History of Present Illness Initial Comments: 08/07/18 16:26 The patient is a 82 year old male with a significant PMH of GA 10 years ago s/p stents on plavix, IDDM, HLD, HTN, and dementia who presents to the emergency department brought in by daughters for increased confusion. Patient is noted to have dementia; at baseline patient recognizes people, but does not know names or locations. History provided by the daughters as the patient denies all complaints. As per the daughters, the patient's mental status has gradually declined over the last four days. Patient went for a walk with his walker four days ago as he usually does. Since then, he has been more agitated and having difficulty getting out of bed. Patient is wanting only to lay in bed. His daughter reports he only got out of bed once yesterday to go to the bathroom. Daughters have not noticed any fevers, chills, or recent cough. Patient had a bowel movement today and is urinating in his diaper, which is unusual for him as he usually gets up to use the bathroom. Patient has a home health aid. Dr. Zimmerman, the PCP, was going to visit the patient at his home two days from now, but because of his weakness, they brought him to the ED today. His daughter notes he had identical sxs in November 2017 and had a UTI. Past surgical history: Abdominal surgery as a child Allergies: Hydrocodone Dyazide, penicillin Social: Patient lives at home with . Has a home health aid. Past History - Past Medical History Allergies/Adverse Reactions: Allergies Allergy/AdvReac Type Severity Reaction Status Date / Time hydrochlorothiazide Allergy Intermediate Delirium Verified 08/07/18 15:15 Penicillins Allergy Verified 08/07/18 15:15 Home Medications: Ambulatory Orders Atorvastatin Ca [Lipitor] 20 mg PO DAILY 05/09/12 Clopidogrel Bisulfate [Plavix -] 75 mg PO DAILY 05/09/12 Lisinopril [Prinivil] 10 mg PO DAILY 05/09/12 Insulin Aspart [Novolog Flexpen] 4 - 7 unit SQ QID #5 pen 01/20/17 Furosemide [Lasix] 20 mg PO ASDIR 11/26/17 Insulin Glargine,Hum.rec.anlog [Lantus Solostar PEN -] 15 units SQ HS 11/26/17 Memantine HCl [Namenda Xr] 28 mg PO DAILY 11/26/17 Quetiapine Fumarate [Seroquel -] 25 mg PO HS 11/26/17 traZODone HCL [Trazodone HCl] 100 mg PO HS 11/26/17 Anemia: No Asthma: No Cancer: No Cardiac Disorders: Yes (stents inserted 2009) CVA: No COPD: No CHF: No Dementia: Yes Diabetes: Yes (x10 yrs) GI Disorders: No Disorders: No HTN: Yes Hypercholesterolemia: Yes Liver Disease: No Seizures: No Thyroid Disease: No - Surgical History Abdominal Surgery: Yes (Colon resection as an infant) Appendectomy: Yes Cardiac Surgery: No Cholecystectomy: No Lung Surgery: No Neurologic Surgery: No Orthopedic Surgery: No - Suicide/Smoking/Psychosocial Hx Smoking History: Former smoker Have you smoked in the past 12 months: No If you are a former smoker, when did you quit?: 40 years ago Information on smoking cessation initiated: No Hx Alcohol Use: No Drug/Substance Use Hx: No Substance Use Type: None Hx Substance Use Treatment: No Review of Systems - Review of Systems Comments:: 08/07/18 16:31 Limited 2/ dementia. *Physical Exam - Vital Signs Last Vital Signs Temp Pulse Resp BP Pulse Ox 98.4 F 95 H 16 137/63 90 L 08/07/18 14:53 08/07/18 14:53 08/07/18 14:53 08/07/18 14:53 08/07/18 14:53 - Physical Exam Comments: 08/07/18 16:31 GENERAL: Awake, alert, oriented to name only, in no acute distress HEAD: No signs of trauma EYES: PERRLA, EOMI, sclera anicteric, conjunctiva clear ENT: Oropharynx clear without exudates. Moist mucosa NECK: Normal ROM, supple, no lymphadenopathy, JVD, or masses LUNGS: Breath sounds equal, clear to auscultation bilaterally. No wheezes, and no crackles HEART: Regular rate and rhythm, normal S1 and S2, no murmurs, rubs or gallops ABDOMEN: Soft, nontender, normoactive bowel sounds. No guarding, no rebound. No masses RECTAL: temp 100.2 EXTREMITIES: Normal range of motion, no edema. No clubbing or cyanosis. No cords, erythema, or tenderness NEUROLOGICAL: Normal speech, cranial nerves intact, global weakness b/l, normal sensation, unable to get out of the stretcher w/o 2 person assistance. SKIN: Warm, Dry, normal turgor, no rashes or lesions noted. Heart Score/ECG Review #1 08/07/18 16:33 Twelve-lead EKG was performed and reviewed by me. Sinus rhythm with PVCs. Rate 76. Left axis deviation. Right bundle branch block and bifascicular block. When compared to EKG from 11/26/2017, no significant changes. ED Treatment Course - LABORATORY CBC & Chemistry Diagram: 08/08/18 07:43 08/08/18 07:43 - ADDITIONAL ORDERS Additional order review: Laboratory Results 08/07/18 16:00 Urine Color Yellow Urine Appearance Clear Urine pH 5.0 Ur Specific [place] 1.020 Urine Protein Trace Urine Glucose (UA) Negative Urine Ketones Negative Urine Blood Trace-intact H Urine Nitrite Negative Urine Bilirubin Negative Urine Urobilinogen 0.2 Ur Leukocyte Esterase 1+ H - RADIOLOGY Radiology Studies Ordered: Category Date Time Status HEAD CT WITHOUT CONTRAST [CT] Stat CT Scan 08/07/18 15:10 Completed CHEST X-RAY PORTABLE* [RAD] Stat Radiology 08/07/18 15:09 Completed Medical Decision Making - Medical Decision Making 08/07/18 16:34 83yo M with MMP including dementia, CAD, DM presents to the ED with generalized weakness and increased confusion over 4 days. Pt borderline febrile to 100.2, tylenol IV given Most likely infectious UTI vs PNA. Pt noted to be hypoxic, but has no cough and no crackles on exam DDx also includes metabolic vs ischemic pathology EKG at baseline Plan for labs, UA, XR, CTH. Anticipate admission 08/07/18 17:31 +UA for UTI CXR with possible PNA? Pt persistently hypoxic to 90%, corrects to 98% with 2L CTA chest ordered to r/o PE given hypoxia, trop leak and in setting of recent immobility. CTA may also help r/o infiltrate as possible infectious source. Discussed with daughter Judit, pt has no hx IV contrast allergy Covered empirically for UTI +/- PNA with vancomycin & aztreonem - previous urine culture resistant to levoquin. Pt has PCN allergy Glucose elevated to 200s, pt given 5 insulin sq, eating dinner now Case discussed with KALEY Prado and Dr. Oliveros, pt accepted for admission, they request admission under Dr Davila Case discussed in detail with admitting physician including history, physical exam and ancillary studies. Admitting physician has assumed care for the patient, will follow all pending diagnostics and will complete the evaluation and treatment. *DC/Admit/Observation/Transfer Diagnosis at time of Disposition: UTI (urinary tract infection), Hypoxia, Fever - Discharge Dispostion Condition at time of disposition: Stable Decision to Admit order: Yes - Referrals - Patient Instructions - Post Discharge Activity - Attestations Physician Attestion: 08/07/18 17:34 I, Dr. Tono Vega MD, attest that this document has been prepared under my direction and personally reviewed by me in its entirety. I further attest, that it accurately reflects all work, treatment, procedures and medical decision -making performed by me.
[2018-08-07 16:34] LABS: ALK PHOS 93 U/L (32-92); ANION GAP 8 MMOL/L (8-16); BILIRUBIN,TOTAL 0.7 mg/dl (0.2-1.0); BLOOD UREA NITROGEN 26 mg/dl (7-18); CALCIUM 8.3 mg/dl (8.4-10.2); CHLORIDE 106 mmol/L (98-107); CO2 27 mmol/L (22-28); CREATININE 1.1 mg/dl (0.6-1.3); GLUCOSE,RANDOM 255 mg/dl (74-106); SGOT/AST 19 U/L (10-42); SGPT/ALT 15 U/L (10-40); SODIUM 141 mmol/L (136-145); TOT PROT 6.1 g/dl (6.4-8.3)
[2018-08-07] MEDS ORDERED: ACETAMINOPHEN 1000 MG/100 ML VIAL (NON FORMULARY) IVPB ONE (16:37)
[2018-08-07] MEDS ORDERED: ACETAMINOPHEN INJECTION 100 ML IVPB ONE (16:44)
[2018-08-07 16:55] LABS: URINE WBC 20-40 (0-2)
[2018-08-07 16:56] LABS: AMORP URATES 2+ /hpf (NONE SEEN); URINE BACTERIA 3+ /hpf (NEGATIVE)
[2018-08-07] MEDS ORDERED: VANCOMYCIN 1,000 MG in DEXTROSE 5%-WATER - 250 ML IVPB ONE (17:24)
[2018-08-07] MEDS ORDERED: AZTREONAM 1 GM VIAL (RESTRICTED TO ID) IVPB ONE (17:25)
[2018-08-07] MEDS ORDERED: INSULIN REGULAR HUMAN 100 UNITS/ML *VIAL ONE (17:26)
[2018-08-07] MEDS ORDERED: VANCOMYCIN 1,000 MG VIAL (RESTRICTED TO ID ONLY) ONE (17:32)
[2018-08-07] MEDS ORDERED: INSULIN REGULAR HUMAN 100 UNITS/ML *VIAL SQ ONE (17:45)
[2018-08-07] MEDS: QUEtiapine FUMARATE 25 MG TABLET (FP) PO SCH (21:51)
[2018-08-07] MEDS: HEPARIN NA (PORCINE) 5,000 UNITS/ML 1ML VIAL SQ SCH (21:51)
[2018-08-07] MEDS: traZODone HCL 50 MG TABLET (FP) PO SCH (21:51)
[2018-08-07] MEDS: ATORVASTATIN CA 20 MG TABLET (FP) PO SCH (21:51)
[2018-08-07] MEDS: INSULIN (LEVEMIR) 100 UNITS/ML UNITS SQ SCH (22:26)
[2018-08-08] MEDS ORDERED: AZTREONAM 1 GM in DEXTROSE 5%-WATER - 50 ML IVPB ONE (04:00)
[2018-08-08] MEDS ORDERED: AZTREONAM 1 GM in DEXTROSE 5%-WATER - 50 ML IVPB SCH (04:00)
--- NOTE | 2018-08-08 06:05 | HP ---
Admitting History and Physical - Primary Care Physician PCP: Kannan Zimmerman - Admission Chief Complaint: AMS History of Present Illness: This is a 83 y/o man from home with a PMHx of: Dementia, [place] s/p Stents (10 yrs ago, on Plavix), HTN, HLD, IDDM, Former Smoker. Who present to the ED with his daughters for AMS, increased agitation and generalized weakness. Per the ED record: Patient is noted to have dementia; at baseline patient recognizes people, but does not know names or locations. History provided by the daughters as the patient denies all complaints. As per the daughters, the patient's mental status has gradually declined over the last four days. Patient went for a walk with his walker four days ago as he usually does. Since then, he has been more agitated and having difficulty getting out of bed. Patient is wanting only to lay in bed. His daughter reports he only got out of bed once yesterday to go to the bathroom. Daughters have not noticed any fevers, chills, or recent cough. Patient had a bowel movement today and is urinating in his diaper, which is unusual for him as he usually gets up to use the bathroom. Patient has a home health aid. Dr. Zimmerman, the PCP, was going to visit the patient at his home two days from now, but because of his weakness, they brought him to the ED today. His daughter notes he had identical sxs in November 2017 and had a UTI. 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: Dementia Cardiovascular: Yes: CAD, HTN, Hyperlipdemia Endocrine: Yes: Diabetes Mellitus - Past Surgical History Past Surgical History: Yes: Appendectomy, Stent - Advance Directives Advance Directives: Yes: Health Care Proxy - Smoking History Smoking history: Former smoker Have you smoked in the past 12 months: No If you are a former smoker, when did you quit?: 40 years ago - Alcohol/Substance Use Hx Alcohol Use: No History of Substance Use: reports: None - Social History ADL: Family Assistance History of Recent Travel: No Home Medications - Allergies Allergies/Adverse Reactions: Allergies Allergy/AdvReac Type Severity Reaction Status Date / Time hydrochlorothiazide Allergy Intermediate Delirium Verified 08/07/18 15:15 Penicillins Allergy Verified 08/07/18 15:15 - Home Medications Home Medications: Ambulatory Orders Atorvastatin Ca [Lipitor] 20 mg PO DAILY 05/09/12 Clopidogrel Bisulfate [Plavix -] 75 mg PO DAILY 05/09/12 Lisinopril [Prinivil] 10 mg PO DAILY 05/09/12 Insulin Aspart [Novolog Flexpen] 4 - 7 unit SQ QID #5 pen 01/20/17 Furosemide [Lasix] 20 mg PO ASDIR 11/26/17 Insulin Glargine,Hum.rec.anlog [Lantus Solostar PEN -] 15 units SQ HS 11/26/17 Memantine HCl [Namenda Xr] 28 mg PO DAILY 11/26/17 Quetiapine Fumarate [Seroquel -] 25 mg PO HS 11/26/17 traZODone HCL [Trazodone HCl] 100 mg PO HS 11/26/17 Family Disease History - Family Disease History Family History: Unable to Obtain Review of Systems Unable to obtain ROS, reason: Dementia Physical Examination Vital Signs: Vital Signs Temperature 98 F 08/07/18 20:46 Pulse Rate 62 08/07/18 20:46 Respiratory Rate 18 08/07/18 20:46 Blood Pressure 125/68 08/07/18 20:46 O2 Sat by Pulse Oximetry (%) 96 08/07/18 20:46 Constitutional: Yes: No Distress, Calm Eyes: Yes: Conjunctiva Clear, PERRL HENT: Yes: WNL, Atraumatic, Normocephalic Neck: Yes: WNL, Supple, Trachea Midline Cardiovascular: Yes: Regular Rate and Rhythm, S1, S2 Respiratory: Yes: WNL, Regular, CTA Bilaterally Gastrointestinal: Yes: WNL, Normal Bowel Sounds, Soft Renal/: Yes: Incontinence Breast(s): Yes: WNL Musculoskeletal: Yes: WNL Extremities: Yes: WNL Edema: No Peripheral Pulses WNL: Yes Neurological: Yes: Confusion, Cran Nerves II-XII Intact ...Motor Strength: LUE (4/5), LLE (4/5), RUE (4/5), RLE (4/5) Psychiatric: Yes: Other (Lethargic) Labs: CBC, BMP 08/07/18 16:00 08/07/18 16:00 Laboratory Results - last 24 hr 08/07/18 08/07/18 08/07/18 16:00 16:00 16:00 WBC 8.5 RBC 3.79 L Hgb 11.4 L Hct 34.1 L MCV 90.1 MCH 30.1 MCHC 33.4 RDW 13.9 Plt Count 227 MPV 8.8 Absolute Neuts (auto) 7.3 Neutrophils % 85.7 H D Lymphocytes % 5.6 L D Monocytes % 7.5 Eosinophils % 0.8 Basophils % 0.4 Sodium 141 Potassium 4.0 Chloride 106 Carbon Dioxide 27 Anion Gap 8 BUN 26 H Creatinine 1.1 Creat Clearance w eGFR > 60 POC Glucometer Random Glucose 255 H D Lactic Acid Calcium 8.3 L Total Bilirubin 0.7 AST 19 ALT 15 Alkaline Phosphatase 93 H Creatine Kinase Troponin I Total Protein 6.1 L Albumin 3.0 L Urine Color Yellow Urine Appearance Clear Urine pH 5.0 Ur Specific [place] 1.020 Urine Protein Trace Urine Glucose (UA) Negative Urine Ketones Negative Urine Blood Trace-intact H Urine Nitrite Negative Urine Bilirubin Negative Urine Urobilinogen 0.2 Ur Leukocyte Esterase 1+ H Urine RBC 2-5 Urine WBC 20-40 Amorphous Urates 2+ Urine Bacteria 3+ 08/07/18 08/07/18 08/07/18 16:00 16:34 17:18 WBC RBC Hgb Hct MCV MCH MCHC RDW Plt Count MPV Absolute Neuts (auto) Neutrophils % Lymphocytes % Monocytes % Eosinophils % Basophils % Sodium Potassium Chloride Carbon Dioxide Anion Gap BUN Creatinine Creat Clearance w eGFR POC Glucometer [id number] Random Glucose Lactic Acid 1.7 Calcium Total Bilirubin AST ALT Alkaline Phosphatase Creatine Kinase Troponin I 0.09 H D Total Protein Albumin Urine Color Urine Appearance Urine pH Ur Specific [place] Urine Protein Urine Glucose (UA) Urine Ketones Urine Blood Urine Nitrite Urine Bilirubin Urine Urobilinogen Ur Leukocyte Esterase Urine RBC Urine WBC Amorphous Urates Urine Bacteria 08/07/18 08/07/18 23:35 23:35 WBC RBC Hgb Hct MCV MCH MCHC RDW Plt Count MPV Absolute Neuts (auto) Neutrophils % Lymphocytes % Monocytes % Eosinophils % Basophils % Sodium Potassium Chloride Carbon Dioxide Anion Gap BUN Creatinine Creat Clearance w eGFR POC Glucometer Random Glucose Lactic Acid Calcium Total Bilirubin AST ALT Alkaline Phosphatase Creatine Kinase 110 Troponin I 0.09 H Total Protein Albumin Urine Color Urine Appearance Urine pH Ur Specific [place] Urine Protein Urine Glucose (UA) Urine Ketones Urine Blood Urine Nitrite Urine Bilirubin Urine Urobilinogen Ur Leukocyte Esterase Urine RBC Urine WBC Amorphous Urates Urine Bacteria Intake & Output 08/05/18 08/06/18 08/07/18 08/08/18 23:59 23:59 23:59 23:59 Output Total 200 Balance -200 Weight 83.915 kg Current Medications Generic Name Dose Route Start Last Admin Trade Name Freq PRN Reason Stop Dose Admin Atorvastatin Calcium 20 mg 08/07/18 22:00 08/07/18 21:51 Lipitor - PO 20 mg HS [facility] Administration Clopidogrel Bisulfate 75 mg 08/08/18 10:00 Plavix - PO DAILY [facility] Heparin Sodium (Porcine) 5,000 unit 08/07/18 22:00 08/07/18 21:51 Heparin - SQ 5,000 unit TID [facility] Administration Vancomycin HCl 1,250 mg/ 250 mls @ 250 mls/2 hr 08/08/18 10:00 Dextrose IVPB Q24H [facility] Protocol Aztreonam 1 gm/ Dextrose 50 mls @ 100 mls/hr 08/08/18 04:00 IVPB Q8H-IV [facility] Protocol Insulin Aspart 1 vial 08/08/18 07:00 Novolog Vial Sliding Scale - SQ TIDAC [facility] Protocol Insulin Detemir 15 units 08/07/18 22:00 08/07/18 22:26 Levemir Vial SQ 15 units HS [facility] Administration Lisinopril 10 mg 08/08/18 10:00 Prinivil PO DAILY [facility] Non-Formulary Medication 28 mg 08/08/18 10:00 Memantine Hcl [Namenda Xr] PO DAILY [facility] Quetiapine Fumarate 25 mg 08/07/18 22:00 08/07/18 21:51 Seroquel - PO 25 mg HS [facility] Administration Trazodone HCl 100 mg 08/07/18 22:00 08/07/18 21:51 Desyrel - PO 100 mg HS [facility] Administration Imaging - Results Chest X-ray: Report Reviewed, Image Reviewed Cat Scan: Report Reviewed, Image Reviewed EKG: Image Reviewed Problem List - Problems (1) Sepsis Code(s): A41.9 - SEPSIS, UNSPECIFIED ORGANISM (2) Complicated UTI (urinary tract infection) Code(s): N39.0 - URINARY TRACT INFECTION, SITE NOT SPECIFIED (3) Community acquired pneumonia Code(s): J18.9 - PNEUMONIA, UNSPECIFIED ORGANISM (4) Hypoxia Code(s): R09.02 - HYPOXEMIA (5) Metabolic encephalopathy Code(s): G93.41 - METABOLIC ENCEPHALOPATHY (6) Fever Code(s): R50.9 - FEVER, UNSPECIFIED (7) CAD (coronary artery disease) Code(s): I25.10 - ATHSCL HEART DISEASE OF [place] CORONARY ARTERY W/O ANG PCTRS (8) Dementia Code(s): F03.90 - UNSPECIFIED DEMENTIA WITHOUT BEHAVIORAL DISTURBANCE (9) Diabetes mellitus Code(s): E11.9 - TYPE 2 DIABETES MELLITUS WITHOUT COMPLICATIONS (10) HLD (hyperlipidemia) Code(s): E78.5 - HYPERLIPIDEMIA, UNSPECIFIED (11) HTN (hypertension) Code(s): I10 - ESSENTIAL (PRIMARY) HYPERTENSION (12) Hyperglycemia Code(s): R73.9 - HYPERGLYCEMIA, UNSPECIFIED Assessment/Plan This is a 83 y/o man with a PMHx of: Dementia, [place] (Stents 10yrs ago), HTN, HLD, IDDM, Former Smoker. Admitted for Sepsis secondary to Complicated UTI, CAP, Acute Metabolic Encephalopathy for further evaluation of their emergent condition. Plan: 1. Sepsis Likely secondary to Complicated UTI vs Pneumonia Sepsis Criteria met V: T max 100.2, Spo2 90%, BUN 26, +3 leukocyte esterase,,+3 bacteria qSOFA 1 UA- +3 leukoctye esterase, +3 bacteria, 20-40 WBCs Urine Culture-pending CURB65 3 Vancomycin, Aztreonam given in ED, will continue +Staphylococcus Aureus urine culture 11/26/17 Appreciate ID consult Monitor CBC Monitor vitals Tylenol prn 2. Community Acquired Pneumonia CURB65 3 Chest Xray- coarse lung changes with linear scarring and or atelectasis, ? infiltrate left base CTA- no PE or aortic dissection, pulmonary fibrosis with developing upper lung pneumonitis Blood Cultures-pending Continue Vancomycin, Aztreonam Appreciate ID consult O2 CBC, BMP in am Vitals 3. Acute Metabolic Encephalopathy Likely secondary to UTI Neurochecks Fall Precautions 4. Cardiovascular: HTN, HLD, CAD, [place] s/p Stents Stable EKG reviewed no change from prior study Troponin 0.09 slightly elevated from baseline, likely due to Sepsis, Hypoxia Serial Enzymes Consider Cardiology consult if Troponin level increases Continue home meds Monitor renal function, LFTs O2 5. Endocrinology- IDDM not well controlled, likely due to infection BGMs ISS Continue home meds 6. Dementia Continue home meds FEN PO fluids as tolerated Replete lytes Low Na, Diabetic Diet DVT ppx OOB SCDs Heparin SQ Code Status: Full Code, HCP Dispo: Requires Inpatient Care Visit type - Emergency Visit Emergency Visit: Yes ED Registration Date: 08/07/18 Care time: The patient presented to the Emergency Department on the above date and was hospitalized for further evaluation of their emergent condition. - New Patient This patient is new to me today: Yes Date on this admission: 08/07/18 - Critical Care Critical Care patient: No
[2018-08-08] MEDS: HEPARIN NA (PORCINE) 5,000 UNITS/ML 1ML VIAL SQ SCH ×3 (06:27→21:06)
[2018-08-08] MEDS: INSULIN SLIDING SCALE (NOVOLOG) 1 VIAL SQ SCH ×3 (06:27→16:33)
[2018-08-08 08:15] LABS: BASO % 0.3 % (0-2.0); EOS % 1.3 % (0-4.5); HEMATOCRIT 30.5 % (35.4-49); LYMPH % 6.6 % (8-40); MCH 29.2 pg (25.7-33.7); MCHC 32.7 g/dl (32.0-35.9); MEAN CELL VOLUME 89.4 fl (80-96); MEAN PLT VOLUME 8.9 fl (7.5-11.1); MONO % 8.6 % (3.8-10.2); NEUT % 83.2 % (42.8-82.8); PLATELET COUNT 212 K/MM3 (134-434); RBC 3.41 M/mm3 (4.00-5.60); RDW 13.8 % (11.9-15.9); WHITE BLOOD COUNT 8.5 K/mm3 (4.0-10.8)
--- NOTE | 2018-08-08 08:23 | PN ---
Physical Exam: SUBJECTIVE: Patient seen and examined at bedside. OBJECTIVE: Vital Signs Period Temp Pulse Resp BP Sys/Hernadez Pulse Ox Last 24 Hr 98 F-101 F 62-95 16-18 125-137/58-78 90-98 GENERAL: The patient is awake. Makes eye contact, shook hands, speech nonsensical syllables LUNGS: Breath sounds equal, clear to auscultation bilaterally, no wheezes, no crackles, no accessory muscle use. HEART: Regular rate and rhythm, S1, S2 ABDOMEN: Soft, nontender, nondistended, EXTREMITIES: 2+ pulses, warm, well-perfused, no edema. NEUROLOGICAL: Cranial nerves II through XII grossly intact. Laboratory Results - last 24 hr 08/07/18 08/07/18 08/07/18 16:00 16:00 16:00 WBC 8.5 RBC 3.79 L Hgb 11.4 L Hct 34.1 L MCV 90.1 MCH 30.1 MCHC 33.4 RDW 13.9 Plt Count 227 MPV 8.8 Absolute Neuts (auto) 7.3 Neutrophils % 85.7 H D Lymphocytes % 5.6 L D Monocytes % 7.5 Eosinophils % 0.8 Basophils % 0.4 Sodium 141 Potassium 4.0 Chloride 106 Carbon Dioxide 27 Anion Gap 8 BUN 26 H Creatinine 1.1 Creat Clearance w eGFR > 60 POC Glucometer Random Glucose 255 H D Lactic Acid Calcium 8.3 L Total Bilirubin 0.7 AST 19 ALT 15 Alkaline Phosphatase 93 H Creatine Kinase Troponin I Total Protein 6.1 L Albumin 3.0 L Urine Color Yellow Urine Appearance Clear Urine pH 5.0 Ur Specific [place] 1.020 Urine Protein Trace Urine Glucose (UA) Negative Urine Ketones Negative Urine Blood Trace-intact H Urine Nitrite Negative Urine Bilirubin Negative Urine Urobilinogen 0.2 Ur Leukocyte Esterase 1+ H Urine RBC 2-5 Urine WBC 20-40 Amorphous Urates 2+ Urine Bacteria 3+ 08/07/18 08/07/18 08/07/18 16:00 16:34 17:18 WBC RBC Hgb Hct MCV MCH MCHC RDW Plt Count MPV Absolute Neuts (auto) Neutrophils % Lymphocytes % Monocytes % Eosinophils % Basophils % Sodium Potassium Chloride Carbon Dioxide Anion Gap BUN Creatinine Creat Clearance w eGFR POC Glucometer [phone] Random Glucose Lactic Acid 1.7 Calcium Total Bilirubin AST ALT Alkaline Phosphatase Creatine Kinase Troponin I 0.09 H D Total Protein Albumin Urine Color Urine Appearance Urine pH Ur Specific [place] Urine Protein Urine Glucose (UA) Urine Ketones Urine Blood Urine Nitrite Urine Bilirubin Urine Urobilinogen Ur Leukocyte Esterase Urine RBC Urine WBC Amorphous Urates Urine Bacteria 08/07/18 08/07/18 08/08/18 23:35 23:35 06:22 WBC RBC Hgb Hct MCV MCH MCHC RDW Plt Count MPV Absolute Neuts (auto) Neutrophils % Lymphocytes % Monocytes % Eosinophils % Basophils % Sodium Potassium Chloride Carbon Dioxide Anion Gap BUN Creatinine Creat Clearance w eGFR POC Glucometer 160 Random Glucose Lactic Acid Calcium Total Bilirubin AST ALT Alkaline Phosphatase Creatine Kinase 110 Troponin I 0.09 H Total Protein Albumin Urine Color Urine Appearance Urine pH Ur Specific [place] Urine Protein Urine Glucose (UA) Urine Ketones Urine Blood Urine Nitrite Urine Bilirubin Urine Urobilinogen Ur Leukocyte Esterase Urine RBC Urine WBC Amorphous Urates Urine Bacteria 08/08/18 07:43 WBC 8.5 RBC 3.41 L Hgb 10.0 L Hct 30.5 L MCV 89.4 MCH 29.2 MCHC 32.7 RDW 13.8 Plt Count 212 MPV 8.9 Absolute Neuts (auto) 7.1 Neutrophils % 83.2 H Lymphocytes % 6.6 L Monocytes % 8.6 Eosinophils % 1.3 Basophils % 0.3 Sodium Potassium Chloride Carbon Dioxide Anion Gap BUN Creatinine Creat Clearance w eGFR POC Glucometer Random Glucose Lactic Acid Calcium Total Bilirubin AST ALT Alkaline Phosphatase Creatine Kinase Troponin I Total Protein Albumin Urine Color Urine Appearance Urine pH Ur Specific [place] Urine Protein Urine Glucose (UA) Urine Ketones Urine Blood Urine Nitrite Urine Bilirubin Urine Urobilinogen Ur Leukocyte Esterase Urine RBC Urine WBC Amorphous Urates Urine Bacteria Active Medications Generic Name Dose Route Start Last Admin Trade Name Freq PRN Reason Stop Dose Admin Atorvastatin Calcium 20 mg 08/07/18 22:00 08/07/18 21:51 Lipitor - PO 20 mg HS [facility] Administration Clopidogrel Bisulfate 75 mg 08/08/18 10:00 Plavix - PO DAILY [facility] Heparin Sodium (Porcine) 5,000 unit 08/07/18 22:00 08/08/18 06:27 Heparin - SQ 5,000 unit TID [facility] Administration Vancomycin HCl 1,250 mg/ 250 mls @ 250 mls/2 hr 08/08/18 10:00 Dextrose IVPB Q24H [facility] Protocol Aztreonam 1 gm/ Dextrose 50 mls @ 100 mls/hr 08/08/18 04:00 IVPB Q8H-IV [facility] Protocol Insulin Aspart 1 vial 08/08/18 07:00 08/08/18 06:27 Novolog Vial Sliding Scale - SQ 2 units TIDAC [facility] Administration Protocol Insulin Detemir 15 units 08/07/18 22:00 08/07/18 22:26 Levemir Vial SQ 15 units HS [facility] Administration Lisinopril 10 mg 08/08/18 10:00 Prinivil PO DAILY [facility] Non-Formulary Medication 28 mg 08/08/18 10:00 Memantine Hcl [Namenda Xr] PO DAILY [facility] Quetiapine Fumarate 25 mg 08/07/18 22:00 08/07/18 21:51 Seroquel - PO 25 mg HS [facility] Administration Trazodone HCl 100 mg 08/07/18 22:00 08/07/18 21:51 Desyrel - PO 100 mg HS [facility] Administration ASSESSMENT/PLAN 83 year-old male with a PMH significant for HTN, HLD, CAD s/p [place] s/p stents on Plavix, IDDM, and dementia x 2 years. Admitted for sepsis DM. Sepsis secondary to pneumonia v. UTI v. both --T 101.0, p 91 --CTA chest: patchy infiltration within upper lobes bilaterally, interstitial changes v. acute infiltration --Urinalysis: 1+leuks, 20-40 WBCs --blood and urine cultures pending --urine antigens, sputum culture ordered --continue Aztreonam, Vanc --NS x 500mL bolus; then continuous gentle infusion; will not follow sepsis guidelines for fluid resuscitation in this elderly patient with possible pneumonia --ID following Hypertension --hold lisinopril due to borderline hypotension in setting of sepsis Hyperlipidemia --continue Lipitor Coronary artery disease s/p stents --continue Plavix, statin IDDM --Levemir 15U qhs --Novolog sliding scale coverage Dementia --continue Namenda --continue Trazadone, Seroquel at night; monitor for signs of oversedation Hypomagnesemia --repleted with PO FEN Fluids: NS @ 75mL/hr Electrolytes: replete as indicated Nutrition: diabetic, low Na DVT prophylaxis: subq heparin Physical therapy Dispo: continues to require inpatient care. Full Code. Visit type - Emergency Visit Emergency Visit: Yes ED Registration Date: 08/07/18 Care time: The patient presented to the Emergency Department on the above date and was hospitalized for further evaluation of their emergent condition. - New Patient This patient is new to me today: Yes Date on this admission: 08/08/18 - Critical Care Critical Care patient: No
[2018-08-08 08:30] LABS: ANION GAP 6 MMOL/L (8-16); BLOOD UREA NITROGEN 23 mg/dl (7-18); CALCIUM 7.9 mg/dl (8.4-10.2); CHLORIDE 109 mmol/L (98-107); CO2 23 mmol/L (22-28); CREATININE 1.2 mg/dl (0.6-1.3); GLUCOSE,RANDOM 186 mg/dl (74-106); MAGNESIUM 1.7 mg/dL (1.8-2.4); PHOSPHOROUS 2.8 mg/dl (2.5-4.6); POTASSIUM 3.5 mmol/L (3.5-5.1); SODIUM 138 mmol/L (136-145)
--- NOTE | 2018-08-08 09:38 | PN ---
Progress Note (short form) - Note Progress Note: ID Consult dictated Sepsis Lung v. source PCN allergy Await c/s Pending c/s empiric vancomycin/ aztreonam
[2018-08-08] MEDS ORDERED: LISINOPRIL 10 MG TABLET (FP) PO SCH (10:00)
[2018-08-08] MEDS ORDERED: PATIENT'S OWN MEDICATION (NON-FORMULARY) (Memantine Hcl [Namenda Xr] 28 MG) PO SCH (10:00)
[2018-08-08] MEDS ORDERED: VANCOMYCIN 1,250 MG in DEXTROSE 5%-WATER - 250 ML IVPB SCH (10:00)
[2018-08-08] MEDS: SODIUM CHLORIDE IVPB SCH ×2 (10:06→17:32)
[2018-08-08] MEDS: AZTREONAM IVPB SCH ×2 (10:06→17:32)
[2018-08-08] MEDS: VANCOMYCIN 1,000 MG in SODIUM CHLORIDE 250 ML IVPB SCH ×2 (10:06→22:56)
[2018-08-08] MEDS: CLOPIDOGREL BISULFATE 75 MG TABLET (FP) PO SCH (10:07)
--- NOTE | 2018-08-08 10:12 | CONS ---
INFECTIOUS DISEASE CONSULTATION DATE OF CONSULTATION: DATE OF DICTATION: 08/08/2018 The patient is an 83-year-old male evaluated for sepsis. History was obtained from the chart as he cannot give a history of secondary to his mental status. He was admitted to the hospital on August 07, 2018, with reports of worsening mental status and fatigue. The family reports that over the 3-4 days prior to admission, he had increased lethargy and altered mentation associated with worsening fatigue. He was evaluated in the emergency room where his temperature was 100.2. Cultures were obtained, and he was empirically treated with vancomycin and Azactam. Patient has a history of PENICILLIN ALLERGY. At the present time, he is awake, but he is confused. He is unable to offer any additional details. No reports of shaking chills, labored breathing, cough, sputum production, hemoptysis, vomiting, diarrhea, or grossly purulent urine. PAST MEDICAL HISTORY: Positive for coronary artery disease, myocardial infarction, insulin-dependent diabetes mellitus, hypertension, hyperlipidemia, dementia. PAST SURGICAL HISTORY: Status post coronary artery stent. ALLERGIES: PENICILLIN and HYDROCHLOROTHIAZIDE. SOCIAL HISTORY: Patient lives at home. He is a former smoker, nondrinker. SYSTEMS REVIEW: Neurologic: Positive for altered mentation. No loss of consciousness, seizure activity, or focal weakness. Cardiac: Negative chest pain or palpitations. Respiratory: Negative cough or sputum production. Gastrointestinal: Negative vomiting or diarrhea. Genitourinary: Negative for urinary tract infection. LABORATORY DATA: White count 8.5, hematocrit 30.5, platelet count 212. BUN 23, creatinine 1.2. Urinalysis: White cells 20-40. Blood and urine cultures are pending. Chest x-ray: Prominent mediastinum; atelectasis, right and left bases. CAT scan of the chest shows possible early infiltrate at the apices bilaterally. PHYSICAL EXAMINATION: General: He is awake. He is not acutely toxic appearing, not conversant. Vital Signs: Temperature 101; blood pressure 137/58; pulse 91, regular; respirations 17 per minute. HEENT: Sclerae are anicteric. Heart: Sounds S1, S2. Lungs: Diminished breath sounds bilaterally. Poor inspiratory effort. Abdomen: Soft. No tenderness elicited. No mass, rebound, or rigidity. Extremities: Negative for edema. Negative Homans sign. IMPRESSION: 1. Sepsis, lung versus genitourinary source. 2. PENICILLIN ALLERGY. Await sepsis workup. Empiric antibiotic coverage with vancomycin and aztreonam. Further recommendations pending cultures and clinical course. Will follow. Thank you for the kind referral. YOHAN SULLIVAN M.D. [id number]
[2018-08-08] MEDS: SODIUM CHLORIDE 1,000 ML IV SCH (11:55)
--- NOTE | 2018-08-08 12:36 | EKG ---
Test Reason : Blood Pressure : / mmHG Vent. Rate : 076 BPM Atrial Rate : 076 BPM P-R Int : 140 ms QRS Dur : 126 ms QT Int : 418 ms P-R-T Axes : 041 -53 -13 degrees QTc Int : 470 ms SINUS RHYTHM WITH SINUS ARRHYTHMIA WITH OCCASIONAL PREMATURE VENTRICULAR COMPLEXES RIGHT BUNDLE BRANCH BLOCK LEFT ANTERIOR FASCICULAR BLOCK BIFASCICULAR BLOCK SEPTAL INFARCT , AGE UNDETERMINED ABNORMAL ECG Confirmed by MD KEYLA, NIGHAT ([id number]) on 08/08/2018 12:36:46 PM Referred By: Mere Davila Confirmed By:NIGHAT RAMIRES MD
[2018-08-08] MEDS: ACETAMINOPHEN 325 MG TABLET (FP) PO PRN ×2 (14:20→23:15)
[2018-08-08] MEDS ORDERED: SODIUM CHLORIDE 500 ML IV STA (15:47)
[2018-08-08] MEDS ORDERED: MAGNESIUM OXIDE 400 MG TABLET (FP) PO ONE (15:53)
[2018-08-08] MEDS ORDERED: PT OWN MED DRAWER 7, Y5N ONE ×2 (17:30→23:50)
[2018-08-08] MEDS: QUEtiapine FUMARATE 25 MG TABLET (FP) PO SCH (21:05)
[2018-08-08] MEDS: traZODone HCL 50 MG TABLET (FP) PO SCH (21:05)
[2018-08-08] MEDS: ATORVASTATIN CA 20 MG TABLET (FP) PO SCH (21:05)
[2018-08-08] MEDS: INSULIN (LEVEMIR) 100 UNITS/ML UNITS SQ SCH (21:06)
[2018-08-09] MEDS: AZTREONAM IVPB SCH ×3 (01:04→17:45)
[2018-08-09] MEDS: SODIUM CHLORIDE IVPB SCH ×3 (01:04→17:45)
[2018-08-09] MEDS: HEPARIN NA (PORCINE) 5,000 UNITS/ML 1ML VIAL SQ SCH ×3 (06:24→21:32)
[2018-08-09] MEDS: INSULIN SLIDING SCALE (NOVOLOG) 1 VIAL SQ SCH ×3 (06:40→16:48)
[2018-08-09 08:12] LABS: BASO % 0.4 % (0-2.0); EOS % 2.9 % (0-4.5); HEMATOCRIT 30.1 % (35.4-49); HEMOGLOBIN 9.7 GM/dl (11.7-16.9); LYMPH % 10.7 % (8-40); MCHC 32.2 g/dl (32.0-35.9); MEAN CELL VOLUME 90.4 fl (80-96); MEAN PLT VOLUME 8.4 fl (7.5-11.1); MONO % 11.5 % (3.8-10.2); NEUT % 74.5 % (42.8-82.8); PLATELET COUNT 223 K/MM3 (134-434); RBC 3.33 M/mm3 (4.00-5.60); RDW 13.6 % (11.9-15.9); WHITE BLOOD COUNT 6.9 K/mm3 (4.0-10.8)
[2018-08-09 08:34] LABS: ALBUMIN 2.4 g/dl (3.5-5.0); ALK PHOS 74 U/L (32-92); ANION GAP 4 MMOL/L (8-16); BILIRUBIN,TOTAL 0.5 mg/dl (0.2-1.0); BLOOD UREA NITROGEN 19 mg/dl (7-18); CALCIUM 7.7 mg/dl (8.4-10.2); CHLORIDE 114 mmol/L (98-107); CO2 26 mmol/L (22-28); CREATININE 0.9 mg/dl (0.6-1.3); GLUCOSE,RANDOM 123 mg/dl (74-106); MAGNESIUM 1.7 mg/dL (1.8-2.4); POTASSIUM 3.7 mmol/L (3.5-5.1); SGOT/AST 16 U/L (10-42); SGPT/ALT 13 U/L (10-40); SODIUM 144 mmol/L (136-145); TOT PROT 4.9 g/dl (6.4-8.3)
--- NOTE | 2018-08-09 09:01 | PN ---
Physical Exam: SUBJECTIVE: Patient seen and examined on morning rounds. In good spirits, no complaints. Oriented x 1. OBJECTIVE: Urine culture + staph coag neg Vital Signs Period Temp Pulse Resp BP Sys/Hernadez Pulse Ox Last 24 Hr 99.3 F-100.6 F 61-87 16-20 115-124/40-66 94-95 GENERAL: The patient is awake, alert, oriented x 1 in no acute distress. HEAD: Normal with no signs of trauma. EYES: PERRL, extraocular movements intact, sclera anicteric, conjunctiva clear. No ptosis. ENT: Ears normal, nares patent, oropharynx clear without exudates, moist mucous membranes. NECK: Trachea midline, full range of motion, supple. LUNGS: Breath sounds equal, coarse with scattered ronchi, no crackles, no accessory muscle use. HEART: Regular rate and rhythm, S1, S2 without murmur, rub or gallop. ABDOMEN: Soft, nontender, nondistended, normoactive bowel sounds, no guarding, no rebound, no hepatosplenomegaly, no masses. EXTREMITIES: 2+ pulses, warm, well-perfused, no edema. NEUROLOGICAL: Cranial nerves II through XII grossly intact. Normal speech, gait not observed. PSYCH: Normal mood, normal affect. SKIN: Warm, dry, normal turgor, no rashes or lesions noted. Laboratory Results - last 24 hr 08/08/18 08/08/18 08/08/18 07:55 11:52 12:15 WBC RBC Hgb Hct MCV MCH MCHC RDW Plt Count MPV Absolute Neuts (auto) Neutrophils % Lymphocytes % Monocytes % Eosinophils % Basophils % Sodium Potassium Chloride Carbon Dioxide Anion Gap BUN Creatinine Creat Clearance w eGFR POC Glucometer 281 Random Glucose Lactic Acid 0.8 Calcium Magnesium Total Bilirubin AST ALT Alkaline Phosphatase Creatine Kinase Troponin I Total Protein Albumin Influenza A (Rapid) Negative Influenza B (Rapid) Negative 08/08/18 08/08/18 08/08/18 14:00 14:00 14:10 WBC RBC Hgb Hct MCV MCH MCHC RDW Plt Count MPV Absolute Neuts (auto) Neutrophils % Lymphocytes % Monocytes % Eosinophils % Basophils % Sodium Potassium Chloride Carbon Dioxide Anion Gap BUN Creatinine Creat Clearance w eGFR POC Glucometer Random Glucose Lactic Acid Calcium Magnesium Total Bilirubin AST ALT Alkaline Phosphatase Creatine Kinase 126 Cancelled Troponin I Cancelled 0.15 H Cancelled Total Protein Albumin Influenza A (Rapid) Influenza B (Rapid) 08/08/18 08/08/18 08/09/18 16:25 21:12 07:52 WBC 6.9 RBC 3.33 L Hgb 9.7 L Hct 30.1 L MCV 90.4 MCH 29.0 MCHC 32.2 RDW 13.6 Plt Count 223 MPV 8.4 Absolute Neuts (auto) 5.2 Neutrophils % 74.5 Lymphocytes % 10.7 D Monocytes % 11.5 H Eosinophils % 2.9 D Basophils % 0.4 Sodium Potassium Chloride Carbon Dioxide Anion Gap BUN Creatinine Creat Clearance w eGFR POC Glucometer 211 220 Random Glucose Lactic Acid Calcium Magnesium Total Bilirubin AST ALT Alkaline Phosphatase Creatine Kinase Troponin I Total Protein Albumin Influenza A (Rapid) Influenza B (Rapid) 08/09/18 07:52 WBC RBC Hgb Hct MCV MCH MCHC RDW Plt Count MPV Absolute Neuts (auto) Neutrophils % Lymphocytes % Monocytes % Eosinophils % Basophils % Sodium 144 Potassium 3.7 Chloride 114 H Carbon Dioxide 26 Anion Gap 4 L BUN 19 H Creatinine 0.9 Creat Clearance w eGFR > 60 POC Glucometer Random Glucose 123 H D Lactic Acid Calcium 7.7 L Magnesium 1.7 L Total Bilirubin 0.5 AST 16 ALT 13 Alkaline Phosphatase 74 D Creatine Kinase Troponin I Total Protein 4.9 L Albumin 2.4 L Influenza A (Rapid) Influenza B (Rapid) Active Medications Generic Name Dose Route Start Last Admin Trade Name Freq PRN Reason Stop Dose Admin Acetaminophen 650 mg 08/08/18 10:18 08/08/18 23:15 Tylenol - PO 650 mg Q6H PRN Administration FEVER Atorvastatin Calcium 20 mg 08/07/18 22:00 08/08/18 21:05 Lipitor - PO 20 mg HS [facility] Administration Clopidogrel Bisulfate 75 mg 08/08/18 10:00 08/08/18 10:07 Plavix - PO 75 mg DAILY [facility] Administration Heparin Sodium (Porcine) 5,000 unit 08/07/18 22:00 08/09/18 06:24 Heparin - SQ 5,000 unit TID [facility] Administration Vancomycin HCl 1,000 mg/ 250 mls @ 166.667 mls/hr 08/08/18 11:00 08/08/18 22: 56 Sodium Chloride IVPB 166.667 mls/hr Q12H [facility] Administration Protocol Aztreonam 1 gm/ Sodium 100 mls @ 100 mls/hr 08/08/18 10:00 08/09/18 01:04 Chloride IVPB 100 mls/hr Q8H-IV [facility] Administration Protocol Sodium Chloride 1,000 mls @ 75 mls/hr 08/08/18 11:30 08/08/18 11:55 Normal Saline - IV 75 mls/hr ASDIR [facility] Administration Insulin Aspart 1 vial 08/08/18 07:00 08/09/18 06:40 Novolog Vial Sliding Scale - SQ 2 units TIDAC [facility] Administration Protocol Insulin Detemir 15 units 08/07/18 22:00 08/08/18 21:06 Levemir Vial SQ 15 units HS [facility] Administration Non-Formulary Medication 28 mg 08/08/18 10:00 Memantine Hcl [Namenda Xr] PO DAILY [facility] Quetiapine Fumarate 25 mg 08/07/18 22:00 08/08/18 21:05 Seroquel - PO 25 mg HS [facility] Administration Trazodone HCl 100 mg 08/07/18 22:00 08/08/18 21:05 Desyrel - PO 100 mg HS [facility] Administration Imaging CTA 08/07: IPF, ?infiltrates at apices, no PE ASSESSMENT/PLAN: 83 year-old male with a HTN, HLD, CAD s/p VA s/p stents on Plavix, IDDM, and dementia admitted for sepsis secondary to UTI +/- PNA. 1. Sepsis -TMax 101, P 91 -Positive urine culture, speciation pending -?Bilateral apical infiltrates on CXR -Continue aztreonam (08/08- ), vancomycin (08/08- ) -Urine antigens for PNA pending -Blood cultures ngtd 2. Elevated troponin, history of CAD -Downtrending (0.15 08/08 --> 0.09 today), suspect demand/sepsis-related rather than ischemic in absence of symptoms -EKG without acute ischemic changes (bifascicular block present on prior) -Continue Lipitor, Plavix 3. HTN -Holding Lisinopril in setting of sepsis 4. Hypercholesterolemia -Continue Lipitor 5. IDDM -Continue Levemir 15 units hs -Novolog sliding scale 6. Dementia -Continue Namenda, trazadone, Seroquel 7. F/E/N -Mild hypomagnesemia, Mag oxide 400mg po bid -Continue NS 75 mLs/hr -Diabetic diet 8. Ppx -Sqh -PT DISPO: Continue antibiotics, follow blood cultures. Anticipate dc home to care of family when improved.
--- NOTE | 2018-08-09 09:18 | PN ---
Progress Note, Physician History of Present Illness: Awake, alert in bed Confused Offers no complaints Low grade temp WBC WNL Cultures prelim no growth - Current Medication List Current Medications: Active Medications Acetaminophen (Tylenol -) 650 mg PO Q6H PRN PRN Reason: FEVER Last Admin: 08/08/18 23:15 Dose: 650 mg Atorvastatin Calcium (Lipitor -) 20 mg PO HS [facility] Last Admin: 08/08/18 21:05 Dose: 20 mg Clopidogrel Bisulfate (Plavix -) 75 mg PO DAILY [facility] Last Admin: 08/08/18 10:07 Dose: 75 mg Heparin Sodium (Porcine) (Heparin -) 5,000 unit SQ TID [facility] Last Admin: 08/09/18 06:24 Dose: 5,000 unit Vancomycin HCl 1,000 mg/ (Sodium Chloride) 250 mls @ 166.667 mls/hr IVPB Q12H [facility]; Protocol Last Admin: 08/08/18 22:56 Dose: 166.667 mls/hr Aztreonam 1 gm/ Sodium (Chloride) 100 mls @ 100 mls/hr IVPB Q8H-IV [facility]; Protocol Last Admin: 08/09/18 01:04 Dose: 100 mls/hr Sodium Chloride (Normal Saline -) 1,000 mls @ 75 mls/hr IV ASDIR [facility] Last Admin: 08/08/18 11:55 Dose: 75 mls/hr Insulin Aspart (Novolog Vial Sliding Scale -) 1 vial SQ TIDAC [facility]; Protocol Last Admin: 08/09/18 06:40 Dose: 2 units Insulin Detemir (Levemir Vial) 15 units SQ HS [facility] Last Admin: 08/08/18 21:06 Dose: 15 units Non-Formulary Medication (Memantine Hcl [Namenda Xr]) 28 mg PO DAILY [facility] Quetiapine Fumarate (Seroquel -) 25 mg PO HS [facility] Last Admin: 08/08/18 21:05 Dose: 25 mg Trazodone HCl (Desyrel -) 100 mg PO HS [facility] Last Admin: 08/08/18 21:05 Dose: 100 mg - Objective Vital Signs: Vital Signs Temperature 99.7 F H 08/09/18 06:00 Pulse Rate 61 08/09/18 06:00 Respiratory Rate 19 08/09/18 07:43 Blood Pressure 116/63 08/09/18 06:00 O2 Sat by Pulse Oximetry (%) 95 08/09/18 06:00 Constitutional: Yes: No Distress Eyes: Yes: Conjunctiva Clear Cardiovascular: Yes: Regular Rate and Rhythm, S1, S2 Respiratory: Yes: CTA Bilaterally Gastrointestinal: Yes: Normal Bowel Sounds, Soft. No: Tenderness Edema: No Labs: CBC, BMP 08/09/18 07:52 08/09/18 07:52 Assessment/Plan Sepsis Lung v. source PCN allergy OBS Await c/s Continue empiric vancomycin/ aztreonam
[2018-08-09] MEDS: CLOPIDOGREL BISULFATE 75 MG TABLET (FP) PO SCH (09:44)
[2018-08-09] MEDS: MAGNESIUM OXIDE 400 MG TABLET (FP) PO SCH ×2 (10:02→21:32)
[2018-08-09] MEDS: VANCOMYCIN 1,000 MG in SODIUM CHLORIDE 250 ML IVPB SCH ×2 (11:04→23:25)
[2018-08-09] MEDS ORDERED: INSULIN (NOVOLOG) ASPART 100 UNITS/ML 10ML VIAL ONE ×2 (11:22→16:41)
[2018-08-09] MEDS ORDERED: PT OWN MED DRAWER 7, Y5N ONE (17:21)
[2018-08-09] MEDS: traZODone HCL 50 MG TABLET (FP) PO SCH (21:31)
[2018-08-09] MEDS: QUEtiapine FUMARATE 25 MG TABLET (FP) PO SCH (21:32)
[2018-08-09] MEDS: ATORVASTATIN CA 20 MG TABLET (FP) PO SCH (21:32)
[2018-08-09] MEDS: INSULIN (LEVEMIR) 100 UNITS/ML UNITS SQ SCH (21:43)
[2018-08-10] MEDS ORDERED: PT OWN MED DRAWER 7, Y5N ONE ×3 (01:07→21:29)
[2018-08-10] MEDS: SODIUM CHLORIDE IVPB SCH ×3 (02:00→18:38)
[2018-08-10] MEDS: AZTREONAM IVPB SCH ×3 (02:00→18:38)
[2018-08-10] MEDS: HEPARIN NA (PORCINE) 5,000 UNITS/ML 1ML VIAL SQ SCH ×3 (06:12→21:57)
[2018-08-10] MEDS: SODIUM CHLORIDE 1,000 ML IV SCH ×2 (07:05→11:15)
[2018-08-10] MEDS: INSULIN SLIDING SCALE (NOVOLOG) 1 VIAL SQ SCH ×3 (07:05→16:38)
[2018-08-10] MEDS: CLOPIDOGREL BISULFATE 75 MG TABLET (FP) PO SCH (10:18)
[2018-08-10] MEDS: MAGNESIUM OXIDE 400 MG TABLET (FP) PO SCH ×2 (10:18→21:57)
[2018-08-10 10:42] LABS: BASO % 0.5 % (0-2.0); EOS % 1.8 % (0-4.5); HEMATOCRIT 29.5 % (35.4-49); HEMOGLOBIN 9.6 GM/dl (11.7-16.9); LYMPH % 10.1 % (8-40); MCH 29.2 pg (25.7-33.7); MCHC 32.5 g/dl (32.0-35.9); MEAN CELL VOLUME 89.8 fl (80-96); MEAN PLT VOLUME 7.8 fl (7.5-11.1); NEUT % 77.6 % (42.8-82.8); PLATELET COUNT 224 K/MM3 (134-434); RBC 3.28 M/mm3 (4.00-5.60); RDW 13.4 % (11.9-15.9); WHITE BLOOD COUNT 6.7 K/mm3 (4.0-10.8)
--- NOTE | 2018-08-10 10:52 | PN ---
Physical Exam: SUBJECTIVE: Patient seen and examined on morning rounds. No change in status. No complaints. Daughter thinks he is "more like himself" today. OBJECTIVE: Vital Signs Period Temp Pulse Resp BP Sys/Hernadez Pulse Ox Last 24 Hr 98.2 F-100.9 F 60-74 16-19 115-127/55-88 94-100 GENERAL: The patient is awake, alert, oriented x 1, in no acute distress. HEAD: Normal with no signs of trauma. EYES: PERRL, extraocular movements intact, sclera anicteric, conjunctiva clear. No ptosis. ENT: Ears normal, nares patent, oropharynx clear without exudates, moist mucous membranes. NECK: Trachea midline, full range of motion, supple. LUNGS: Breath sounds equal, scattered ronchi, no accessory muscle use. HEART: Regular rate and rhythm, S1, S2 without murmur, rub or gallop. ABDOMEN: Soft, nontender, nondistended, normoactive bowel sounds, no guarding, no rebound, no hepatosplenomegaly, no masses. EXTREMITIES: 2+ pulses, warm, well-perfused, no edema. NEUROLOGICAL: Cranial nerves II through XII grossly intact. Normal speech, gait not observed. PSYCH: Normal mood, normal affect. SKIN: Warm, dry, normal turgor, no rashes or lesions noted Laboratory Results - last 24 hr 08/09/18 08/09/18 08/09/18 06:07 11:12 16:29 WBC RBC Hgb Hct MCV MCH MCHC RDW Plt Count MPV Absolute Neuts (auto) Neutrophils % Lymphocytes % Monocytes % Eosinophils % Basophils % POC Glucometer 136 276 201 08/09/18 08/10/18 08/10/18 21:39 05:56 10:35 WBC 6.7 RBC 3.28 L Hgb 9.6 L Hct 29.5 L MCV 89.8 MCH 29.2 MCHC 32.5 RDW 13.4 Plt Count 224 MPV 7.8 Absolute Neuts (auto) 5.2 Neutrophils % 77.6 Lymphocytes % 10.1 Monocytes % 10.0 Eosinophils % 1.8 Basophils % 0.5 POC Glucometer 140 74 Active Medications Generic Name Dose Route Start Last Admin Trade Name Freq PRN Reason Stop Dose Admin Acetaminophen 650 mg 08/08/18 10:18 08/08/18 23:15 Tylenol - PO 650 mg Q6H PRN Administration FEVER Atorvastatin Calcium 20 mg 08/07/18 22:00 08/09/18 21:32 Lipitor - PO 20 mg HS [facility] Administration Clopidogrel Bisulfate 75 mg 08/08/18 10:00 08/10/18 10:18 Plavix - PO 75 mg DAILY [facility] Administration Heparin Sodium (Porcine) 5,000 unit 08/07/18 22:00 08/10/18 06:12 Heparin - SQ 5,000 unit TID [facility] Administration Vancomycin HCl 1,000 mg/ 250 mls @ 166.667 mls/hr 08/08/18 11:00 08/09/18 23: 25 Sodium Chloride IVPB 166.667 mls/hr Q12H [facility] Administration Protocol Aztreonam 1 gm/ Sodium 100 mls @ 100 mls/hr 08/08/18 10:00 08/10/18 10:18 Chloride IVPB 100 mls/hr Q8H-IV [facility] Administration Protocol Sodium Chloride 1,000 mls @ 75 mls/hr 08/08/18 11:30 08/10/18 07:05 Normal Saline - IV Not Given ASDIR [facility] Insulin Aspart 1 vial 08/08/18 07:00 08/10/18 07:05 Novolog Vial Sliding Scale - SQ Not Given TIDAC [facility] Protocol Insulin Detemir 15 units 08/07/18 22:00 08/09/18 21:43 Levemir Vial SQ 15 units HS [facility] Administration Magnesium Oxide 400 mg 08/09/18 10:00 08/10/18 10:18 Mag-Ox - PO 400 mg BID [facility] Administration Non-Formulary Medication 28 mg 08/08/18 10:00 Memantine Hcl [Namenda Xr] PO DAILY [facility] Quetiapine Fumarate 25 mg 08/07/18 22:00 08/09/18 21:32 Seroquel - PO 25 mg HS [facility] Administration Trazodone HCl 100 mg 08/07/18 22:00 08/09/18 21:31 Desyrel - PO 100 mg HS [facility] Administration Imaging CTA 08/07: IPF, ?infiltrates at apices, no PE ASSESSMENT/PLAN: 83 year-old male with a HTN, HLD, CAD s/p SD s/p stents on Plavix, IDDM, and dementia admitted for sepsis secondary to UTI +/- PNA. 1. Sepsis -TMax 101, P 91 -Positive urine culture, speciation pending -?Bilateral apical infiltrates on CXR -Continue aztreonam (08/08- ), vancomycin (08/08- ), vanco trough pending -Urine antigens for PNA neg -Blood cultures ngtd 2. Elevated troponin, history of CAD -Downtrending (0.15 08/08 --> 0.09 today), suspect demand/sepsis-related rather than ischemic in absence of symptoms -EKG without acute ischemic changes (bifascicular block present on prior) -Continue Lipitor, Plavix 3. HTN -Holding Lisinopril in setting of sepsis 4. Hypercholesterolemia -Continue Lipitor 5. IDDM -Continue Levemir 15 units hs -Novolog sliding scale 6. Septic encephalopathy superimposed on dementia -Continue Namenda, trazadone, Seroquel -Fall precautions -Frequent reorientation 7. F/E/N -Mild hypomagnesemia, Mag oxide 400mg po bid -Continue NS 75 mLs/hr -Diabetic diet 8. Ppx -Sqh -PT DISPO: Continue antibiotics, follow blood cultures. Anticipate dc home to care of family when improved. Visit type - Emergency Visit Emergency Visit: Yes ED Registration Date: 08/07/18 Care time: The patient presented to the Emergency Department on the above date and was hospitalized for further evaluation of their emergent condition. - New Patient This patient is new to me today: No - Discharge Referral Referred to [facility] No
[2018-08-10 10:54] LABS: ANION GAP 4 MMOL/L (8-16); BLOOD UREA NITROGEN 18 mg/dl (7-18); CALCIUM 7.6 mg/dl (8.4-10.2); CHLORIDE 113 mmol/L (98-107); CO2 25 mmol/L (22-28); CREATININE 0.9 mg/dl (0.6-1.3); GLUCOSE,RANDOM 90 mg/dl (74-106); POTASSIUM 3.6 mmol/L (3.5-5.1); SODIUM 142 mmol/L (136-145)
[2018-08-10] MEDS ORDERED: INSULIN (NOVOLOG) ASPART 100 UNITS/ML 10ML VIAL ONE (16:37)
[2018-08-10] MEDS: VANCOMYCIN 1,000 MG in SODIUM CHLORIDE 250 ML IVPB SCH (17:20)
[2018-08-10] MEDS: traZODone HCL 50 MG TABLET (FP) PO SCH (21:56)
[2018-08-10] MEDS: ATORVASTATIN CA 20 MG TABLET (FP) PO SCH (21:56)
[2018-08-10] MEDS: QUEtiapine FUMARATE 25 MG TABLET (FP) PO SCH (21:57)
[2018-08-10] MEDS: INSULIN (LEVEMIR) 100 UNITS/ML UNITS SQ SCH (22:15)
[2018-08-11] MEDS: VANCOMYCIN 1,000 MG in SODIUM CHLORIDE 250 ML IVPB SCH ×2 (01:57→11:48)
[2018-08-11] MEDS: AZTREONAM IVPB SCH ×2 (01:59→09:48)
[2018-08-11] MEDS: SODIUM CHLORIDE IVPB SCH ×2 (01:59→09:48)
[2018-08-11] MEDS ORDERED: PT OWN MED DRAWER 7, Y5N ONE (01:59)
[2018-08-11] MEDS: HEPARIN NA (PORCINE) 5,000 UNITS/ML 1ML VIAL SQ SCH ×2 (06:53→14:55)
[2018-08-11] MEDS: INSULIN SLIDING SCALE (NOVOLOG) 1 VIAL SQ SCH ×3 (06:54→16:40)
[2018-08-11 08:32] LABS: BASO % 0.4 % (0-2.0); EOS % 0.8 % (0-4.5); HEMATOCRIT 30.3 % (35.4-49); HEMOGLOBIN 9.7 GM/dl (11.7-16.9); LYMPH % 8.2 % (8-40); MCH 28.9 pg (25.7-33.7); MEAN CELL VOLUME 90.2 fl (80-96); MEAN PLT VOLUME 8.6 fl (7.5-11.1); MONO % 9.5 % (3.8-10.2); NEUT % 81.1 % (42.8-82.8); PLATELET COUNT 220 K/MM3 (134-434); RBC 3.36 M/mm3 (4.00-5.60); RDW 13.6 % (11.9-15.9); WHITE BLOOD COUNT 8.2 K/mm3 (4.0-10.8)
[2018-08-11 08:39] LABS: ANION GAP 7 MMOL/L (8-16); BLOOD UREA NITROGEN 18 mg/dl (7-18); CALCIUM 7.7 mg/dl (8.4-10.2); CHLORIDE 116 mmol/L (98-107); CO2 23 mmol/L (22-28); CREATININE 0.9 mg/dl (0.6-1.3); GLUCOSE,RANDOM 67 mg/dl (74-106); POTASSIUM 3.5 mmol/L (3.5-5.1); SODIUM 146 mmol/L (136-145)
--- NOTE | 2018-08-11 09:21 | PN ---
Physical Exam: SUBJECTIVE: Patient seen and examined OBJECTIVE: Vital Signs Period Temp Pulse Resp BP Sys/Hernadez Pulse Ox Last 24 Hr 97.6 F-98.9 F 60-73 19-20 125-128/45-60 93-100 GENERAL: The patient is awake, alert, and fully oriented, in no acute distress. HEAD: Normal with no signs of trauma. EYES: PERRL, extraocular movements intact, sclera anicteric, conjunctiva clear. No ptosis. ENT: Ears normal, nares patent, oropharynx clear without exudates, moist mucous membranes. NECK: Trachea midline, full range of motion, supple. LUNGS: Breath sounds equal, clear to auscultation bilaterally, no wheezes, no crackles, no accessory muscle use. HEART: Regular rate and rhythm, S1, S2 without murmur, rub or gallop. ABDOMEN: Soft, nontender, nondistended, normoactive bowel sounds, no guarding, no rebound, no hepatosplenomegaly, no masses. EXTREMITIES: 2+ pulses, warm, well-perfused, no edema. NEUROLOGICAL: Cranial nerves II through XII grossly intact. Normal speech, gait not observed. PSYCH: Normal mood, normal affect. SKIN: Warm, dry, normal turgor, no rashes or lesions noted Laboratory Results - last 24 hr 08/09/18 08/10/18 08/10/18 06:07 07:00 10:35 WBC 6.7 RBC 3.28 L Hgb 9.6 L Hct 29.5 L MCV 89.8 MCH 29.2 MCHC 32.5 RDW 13.4 Plt Count 224 MPV 7.8 Absolute Neuts (auto) 5.2 Neutrophils % 77.6 Lymphocytes % 10.1 Monocytes % 10.0 Eosinophils % 1.8 Basophils % 0.5 Sodium Potassium Chloride Carbon Dioxide Anion Gap BUN Creatinine Creat Clearance w eGFR POC Glucometer 136 Random Glucose Calcium Troponin I 0.08 H Vancomycin Pre-Dose 08/10/18 08/10/18 08/10/18 10:35 10:35 11:10 WBC RBC Hgb Hct MCV MCH MCHC RDW Plt Count MPV Absolute Neuts (auto) Neutrophils % Lymphocytes % Monocytes % Eosinophils % Basophils % Sodium 142 Potassium 3.6 Chloride 113 H Carbon Dioxide 25 Anion Gap 4 L BUN 18 Creatinine 0.9 Creat Clearance w eGFR > 60 POC Glucometer 116 Random Glucose 90 D Calcium 7.6 L Troponin I Vancomycin Pre-Dose 12.2 L 08/10/18 08/10/18 08/11/18 16:34 22:13 06:52 WBC RBC Hgb Hct MCV MCH MCHC RDW Plt Count MPV Absolute Neuts (auto) Neutrophils % Lymphocytes % Monocytes % Eosinophils % Basophils % Sodium Potassium Chloride Carbon Dioxide Anion Gap BUN Creatinine Creat Clearance w eGFR POC Glucometer 158 234 71 Random Glucose Calcium Troponin I Vancomycin Pre-Dose 08/11/18 08/11/18 08/11/18 07:30 07:30 07:30 WBC 8.2 RBC 3.36 L Hgb 9.7 L Hct 30.3 L MCV 90.2 MCH 28.9 MCHC 32.0 RDW 13.6 Plt Count 220 MPV 8.6 D Absolute Neuts (auto) 6.6 Neutrophils % 81.1 Lymphocytes % 8.2 Monocytes % 9.5 Eosinophils % 0.8 Basophils % 0.4 Sodium 146 H Potassium 3.5 Chloride 116 H Carbon Dioxide 23 Anion Gap 7 L BUN 18 Creatinine 0.9 Creat Clearance w eGFR > 60 POC Glucometer Random Glucose 67 L D Calcium 7.7 L Troponin I 0.11 H D Vancomycin Pre-Dose Active Medications Generic Name Dose Route Start Last Admin Trade Name Freq PRN Reason Stop Dose Admin Acetaminophen 650 mg 08/08/18 10:18 08/08/18 23:15 Tylenol - PO 650 mg Q6H PRN Administration FEVER Atorvastatin Calcium 20 mg 08/07/18 22:00 08/10/18 21:56 Lipitor - PO 20 mg HS [facility] Administration Clopidogrel Bisulfate 75 mg 08/08/18 10:00 08/10/18 10:18 Plavix - PO 75 mg DAILY [facility] Administration Heparin Sodium (Porcine) 5,000 unit 08/07/18 22:00 08/11/18 06:53 Heparin - SQ 5,000 unit TID [facility] Administration Vancomycin HCl 1,000 mg/ 250 mls @ 166.667 mls/hr 08/08/18 11:00 08/11/18 01: 57 Sodium Chloride IVPB 166.667 mls/hr Q12H [facility] Administration Protocol Aztreonam 1 gm/ Sodium 100 mls @ 100 mls/hr 08/08/18 10:00 08/11/18 01:59 Chloride IVPB 100 mls/hr Q8H-IV [facility] Administration Protocol Sodium Chloride 1,000 mls @ 75 mls/hr 08/08/18 11:30 08/10/18 11:15 Normal Saline - IV 75 mls/hr ASDIR [facility] Administration Insulin Aspart 1 vial 08/08/18 07:00 08/11/18 06:54 Novolog Vial Sliding Scale - SQ Not Given TIDAC [facility] Protocol Insulin Detemir 15 units 08/07/18 22:00 08/10/18 22:15 Levemir Vial SQ 15 units HS [facility] Administration Magnesium Oxide 400 mg 08/09/18 10:00 08/10/18 21:57 Mag-Ox - PO 400 mg BID [facility] Administration Non-Formulary Medication 28 mg 08/08/18 10:00 Memantine Hcl [Namenda Xr] PO DAILY [facility] Quetiapine Fumarate 25 mg 08/07/18 22:00 08/10/18 21:57 Seroquel - PO 25 mg HS [facility] Administration Trazodone HCl 100 mg 08/07/18 22:00 08/10/18 21:56 Desyrel - PO 100 mg HS [facility] Administration ASSESSMENT/PLAN
--- NOTE | 2018-08-11 09:37 | PN ---
Progress Note, Physician - Current Medication List Current Medications: Active Medications Acetaminophen (Tylenol -) 650 mg PO Q6H PRN PRN Reason: FEVER Last Admin: 08/08/18 23:15 Dose: 650 mg Atorvastatin Calcium (Lipitor -) 20 mg PO HS [facility] Last Admin: 08/10/18 21:56 Dose: 20 mg Clopidogrel Bisulfate (Plavix -) 75 mg PO DAILY [facility] Last Admin: 08/10/18 10:18 Dose: 75 mg Heparin Sodium (Porcine) (Heparin -) 5,000 unit SQ TID [facility] Last Admin: 08/11/18 06:53 Dose: 5,000 unit Vancomycin HCl 1,000 mg/ (Sodium Chloride) 250 mls @ 166.667 mls/hr IVPB Q12H [facility]; Protocol Last Admin: 08/11/18 01:57 Dose: 166.667 mls/hr Aztreonam 1 gm/ Sodium (Chloride) 100 mls @ 100 mls/hr IVPB Q8H-IV [facility]; Protocol Last Admin: 08/11/18 01:59 Dose: 100 mls/hr Insulin Aspart (Novolog Vial Sliding Scale -) 1 vial SQ TIDAC [facility]; Protocol Last Admin: 08/11/18 06:54 Dose: Not Given Insulin Detemir (Levemir Vial) 15 units SQ HS [facility] Last Admin: 08/10/18 22:15 Dose: 15 units Magnesium Oxide (Mag-Ox -) 400 mg PO BID [facility] Last Admin: 08/10/18 21:57 Dose: 400 mg Non-Formulary Medication (Memantine Hcl [Namenda Xr]) 28 mg PO DAILY [facility] Quetiapine Fumarate (Seroquel -) 25 mg PO HS [facility] Last Admin: 08/10/18 21:57 Dose: 25 mg Trazodone HCl (Desyrel -) 100 mg PO [facility] Last Admin: 08/10/18 21:56 Dose: 100 mg - Objective Vital Signs: Vital Signs Temperature 99.8 F H 08/11/18 09:32 Pulse Rate 65 08/11/18 09:32 Respiratory Rate 18 08/11/18 09:32 Blood Pressure 128/57 L 08/11/18 09:32 O2 Sat by Pulse Oximetry (%) 93 L 08/11/18 06:00 Labs: CBC, BMP 08/11/18 07:30 08/11/18 07:30
--- NOTE | 2018-08-11 09:44 | PN ---
Progress Note, Physician History of Present Illness: Awake, alert in bed Pleasantly confused Offers no complaints Low grade temp WBC WNL Cultures no growth - Current Medication List Current Medications: Active Medications Acetaminophen (Tylenol -) 650 mg PO Q6H PRN PRN Reason: FEVER Last Admin: 08/08/18 23:15 Dose: 650 mg Atorvastatin Calcium (Lipitor -) 20 mg PO HS [facility] Last Admin: 08/10/18 21:56 Dose: 20 mg Clopidogrel Bisulfate (Plavix -) 75 mg PO DAILY [facility] Last Admin: 08/10/18 10:18 Dose: 75 mg Heparin Sodium (Porcine) (Heparin -) 5,000 unit SQ TID [facility] Last Admin: 08/11/18 06:53 Dose: 5,000 unit Vancomycin HCl 1,000 mg/ (Sodium Chloride) 250 mls @ 166.667 mls/hr IVPB Q12H [facility]; Protocol Last Admin: 08/11/18 01:57 Dose: 166.667 mls/hr Aztreonam 1 gm/ Sodium (Chloride) 100 mls @ 100 mls/hr IVPB Q8H-IV [facility]; Protocol Last Admin: 08/11/18 01:59 Dose: 100 mls/hr Insulin Aspart (Novolog Vial Sliding Scale -) 1 vial SQ TIDAC [facility]; Protocol Last Admin: 08/11/18 06:54 Dose: Not Given Insulin Detemir (Levemir Vial) 15 units SQ [facility] Last Admin: 08/10/18 22:15 Dose: 15 units Magnesium Oxide (Mag-Ox -) 400 mg PO BID [facility] Last Admin: 08/10/18 21:57 Dose: 400 mg Non-Formulary Medication (Memantine Hcl [Namenda Xr]) 28 mg PO DAILY [facility] Quetiapine Fumarate (Seroquel -) 25 mg PO [facility] Last Admin: 08/10/18 21:57 Dose: 25 mg Trazodone HCl (Desyrel -) 100 mg PO [facility] Last Admin: 08/10/18 21:56 Dose: 100 mg - Objective Vital Signs: Vital Signs Temperature 99.8 F H 08/11/18 09:32 Pulse Rate 65 08/11/18 09:32 Respiratory Rate 18 08/11/18 09:32 Blood Pressure 128/57 L 08/11/18 09:32 O2 Sat by Pulse Oximetry (%) 93 L 08/11/18 06:00 Constitutional: Yes: No Distress Eyes: Yes: Conjunctiva Clear Cardiovascular: Yes: Regular Rate and Rhythm, S1, S2 Respiratory: Yes: Rhonchi, Other (+ scatterred rhonchi, basilar crepitations) Gastrointestinal: Yes: Normal Bowel Sounds, Soft. No: Tenderness Edema: No Labs: CBC, BMP 08/11/18 07:30 08/11/18 07:30 Assessment/Plan Sepsis Lung v. source PCN allergy OBS Substitute levaquin 250mg po qd x7d
[2018-08-11] MEDS: CLOPIDOGREL BISULFATE 75 MG TABLET (FP) PO SCH (09:49)
[2018-08-11] MEDS: MAGNESIUM OXIDE 400 MG TABLET (FP) PO SCH (09:49)
--- NOTE | 2018-08-11 10:15 | DS ---
Physical Exam: SUBJECTIVE: Patient seen and examined at bedside. Pleasant. OBJECTIVE: Vital Signs Period Temp Pulse Resp BP Sys/Hernadez Pulse Ox Last 24 Hr 97.6 F-99.8 F 64-73 18-20 125-128/45-60 93-96 PHYSICAL EXAM GENERAL: The patient is awake. Confused. Speaks in phrases that make no sense. LUNGS: Breath sounds equal, clear to auscultation bilaterally, no wheezes, no crackles, no accessory muscle use. HEART: Regular rate and rhythm, S1, S2 ABDOMEN: Soft, nontender, nondistended, EXTREMITIES: 2+ pulses, warm, well-perfused, no edema. NEUROLOGICAL: Cranial nerves II through XII grossly intact. LABS Laboratory Results - last 24 hr 08/09/18 08/10/18 08/10/18 06:07 07:00 10:35 WBC 6.7 RBC 3.28 L Hgb 9.6 L Hct 29.5 L MCV 89.8 MCH 29.2 MCHC 32.5 RDW 13.4 Plt Count 224 MPV 7.8 Absolute Neuts (auto) 5.2 Neutrophils % 77.6 Lymphocytes % 10.1 Monocytes % 10.0 Eosinophils % 1.8 Basophils % 0.5 Sodium Potassium Chloride Carbon Dioxide Anion Gap BUN Creatinine Creat Clearance w eGFR POC Glucometer 136 Random Glucose Calcium Troponin I 0.08 H Vancomycin Pre-Dose 08/10/18 08/10/18 08/10/18 10:35 10:35 11:10 WBC RBC Hgb Hct MCV MCH MCHC RDW Plt Count MPV Absolute Neuts (auto) Neutrophils % Lymphocytes % Monocytes % Eosinophils % Basophils % Sodium 142 Potassium 3.6 Chloride 113 H Carbon Dioxide 25 Anion Gap 4 L BUN 18 Creatinine 0.9 Creat Clearance w eGFR > 60 POC Glucometer 116 Random Glucose 90 D Calcium 7.6 L Troponin I Vancomycin Pre-Dose 12.2 L 08/10/18 08/10/18 08/11/18 16:34 22:13 06:52 WBC RBC Hgb Hct MCV MCH MCHC RDW Plt Count MPV Absolute Neuts (auto) Neutrophils % Lymphocytes % Monocytes % Eosinophils % Basophils % Sodium Potassium Chloride Carbon Dioxide Anion Gap BUN Creatinine Creat Clearance w eGFR POC Glucometer 158 234 71 Random Glucose Calcium Troponin I Vancomycin Pre-Dose 08/11/18 08/11/18 08/11/18 07:30 07:30 07:30 WBC 8.2 RBC 3.36 L Hgb 9.7 L Hct 30.3 L MCV 90.2 MCH 28.9 MCHC 32.0 RDW 13.6 Plt Count 220 MPV 8.6 D Absolute Neuts (auto) 6.6 Neutrophils % 81.1 Lymphocytes % 8.2 Monocytes % 9.5 Eosinophils % 0.8 Basophils % 0.4 Sodium 146 H Potassium 3.5 Chloride 116 H Carbon Dioxide 23 Anion Gap 7 L BUN 18 Creatinine 0.9 Creat Clearance w eGFR > 60 POC Glucometer Random Glucose 67 L D Calcium 7.7 L Troponin I 0.11 H D Vancomycin Pre-Dose HOSPITAL COURSE: Date of Admission:08/07/18 Date of Discharge: 08/11/18 Pre hospital course This is a 83 y/o man from home with a PMHx of: Dementia, [place] s/p Stents (10 yrs ago, on Plavix), HTN, HLD, IDDM, Former Smoker. Who present to the ED with his daughters for AMS, increased agitation and generalized weakness. Per the ED record: Patient is noted to have dementia; at baseline patient recognizes people, but does not know names or locations. History provided by the daughters as the patient denies all complaints. As per the daughters, the patient's mental status has gradually declined over the last four days. Patient went for a walk with his walker four days ago as he usually does. Since then, he has been more agitated and having difficulty getting out of bed. Patient is wanting only to lay in bed. His daughter reports he only got out of bed once yesterday to go to the bathroom. Daughters have not noticed any fevers, chills, or recent cough. Patient had a bowel movement today and is urinating in his diaper, which is unusual for him as he usually gets up to use the bathroom. Patient has a home health aid. Dr. Zimmerman, the PCP, was going to visit the patient at his home two days from now, but because of his weakness, they brought him to the ED today. His daughter notes he had identical sxs in November 2017 and had a UTI. Subsequent hospital course Sepsis secondary to pneumonia v. UTI v. both --T 101.0, p 91 on admission --CTA chest: patchy infiltration within upper lobes bilaterally, interstitial changes v. acute infiltration --Urine culture +MSSA --treated with aztreonam and vanc 08/07-08/11 --discharged on PO levofloxacin for an additional 7 days of treatment --continue Aztreonam, Vanc Hypertension --lisinopril was held during hospital stay for borderline hypotension in setting of sepsis; it was resumed on discharge Hyperlipidemia --continued Lipitor Coronary artery disease s/p stents --continued Plavix, statin IDDM --Levemir 15U qhs --Novolog sliding scale coverage Dementia --continued Namenda --continued Trazadone, Seroquel at night Minutes to complete discharge: 35 Discharge Summary Reason For Visit: increased confusion Current Active Problems Community acquired pneumonia (Acute) Complicated UTI (urinary tract infection) (Acute) Fever (Acute) Hypoxia (Acute) Sepsis (Acute) UTI (urinary tract infection) (Acute) Condition: Improved - Instructions Diet, Activity, Other Instructions: A prescription has been sent to your pharmacy for levofloxacin which is an antibiotic. Take this medication as directed and be sure to finish all the medication. Referrals: Kannan Zimmerman MD [Staff Physician] - Disposition: [facility] - Home Medications Comprehensive Discharge Medication List: Ambulatory Orders Atorvastatin Ca [Lipitor] 20 mg PO DAILY 05/09/12 Clopidogrel Bisulfate [Plavix -] 75 mg PO DAILY 05/09/12 Lisinopril [Prinivil] 10 mg PO DAILY 05/09/12 Insulin Aspart [Novolog Flexpen] 4 - 7 unit SQ QID #5 pen 01/20/17 Furosemide [Lasix] 20 mg PO ASDIR 11/26/17 Insulin Glargine,Hum.rec.anlog [Lantus Solostar PEN -] 15 units SQ HS 11/26/17 Memantine HCl [Namenda Xr] 28 mg PO DAILY 11/26/17 Quetiapine Fumarate [Seroquel -] 25 mg PO HS 11/26/17 traZODone HCL [Trazodone HCl] 100 mg PO HS 11/26/17 levoFLOXacin [Levaquin -] 250 mg PO DAILY #7 tablet 08/11/18 This patient is new to me today: No Emergency Visit: Yes ED Registration Date: 08/07/18 Care time: The patient presented to the Emergency Department on the above date and was hospitalized for further evaluation of their emergent condition. Critical Care patient: No - Discharge Referral Referred to [facility] Yes Physician Referral: Kannan Zimmerman MD (Int Med)
[2018-08-11 17:35] VITALS: BP 131/60; PULSE 78; TEMP 98.4
== END 2018-08-11 18:11 | DRG 871 ==
LOC: FER 14:52 → FM/S 17:34 → EEVIPCON 17:34
PROVIDERS: ADMIT Internal Medicine; ATTEND Nurse Practitioner Acute Care
DX: A41.9 Sepsis, unspecified organism (principal); J18.9 Pneumonia, unspecified organism; G93.41 Metabolic encephalopathy; N39.0 Urinary tract infection, site not specified; I25.2 Old myocardial infarction; E11.9 Type 2 diabetes mellitus without complications; I10 Essential (primary) hypertension; E78.5 Hyperlipidemia, unspecified; F03.90 Unspecified dementia, unspecified severity, without behavioral disturbance, psychotic disturbance, mood disturbance, and anxiety; Z88.0 Allergy status to penicillin; Z95.5 Presence of coronary angioplasty implant and graft; Z79.4 Long term (current) use of insulin; Z90.49 Acquired absence of other specified parts of digestive tract; Z87.891 Personal history of nicotine dependence; R09.02 Hypoxemia; B95.61 Methicillin susceptible Staphylococcus aureus infection as the cause of diseases classified elsewhere; I25.10 Atherosclerotic heart disease of native coronary artery without angina pectoris; E83.42 Hypomagnesemia
CPT/HCPCS: 36415; 70450-TC; 71045-TC-FY; 71275-TC; 80048; 80053; 81003; 81015; 82550; 82962; 83605; 83735; 84100; 84484; 85025; 87040; 87086; 87186; 87804; 87899; 93005; 97116-GP; 97162-GP; 99284-25; E0186; G0480; J0131; J1644; J7030

== ENCOUNTER 2018-09-03 20:53 | Inpatient (IN) | payer OTHER, BC ==
--- NOTE | 2018-09-03 21:06 | PDOC ---
History of Present Illness - General History Source: Family Exam Limitations: No Limitations - History of Present Illness Initial Comments: 09/03/18 21:59 The patient is a 83 year old with a past medical history of [place] (10 years ago s/ p stents on plavix), insulin dependent diabetes, HLD, HTN, and dementia here today for evaluation of altered mental status. Due to the patients dementia, he was not able to give a history so information came from his daughters. As per daughters, patient was seen in this ER on 08/07/18 and was admitted for UTI , pneumonia, and sepsis. After a brief stay, patient was transferred to short term rehab and returned home on 08/31/18. Patients daughters noticed that the patient would become easily confused and would refuse to get out of bed since his admission in July. They also noticed a violent cough since last night and constipation and loss of appetite since 08/31/18. Today the patient was found by daughters to be more confused, having a pulse oximetry at 84% tonight, and also noted to be tachycardic during pulse oximetry. Patient denies headache, lightheadedness. Denies fever, chills. Denies chest pain, shortness of breath. Denies nausea, vomiting, diarrhea, abdominal pain. Allergies: hydrochlorothiazide, penicillins PCP: none reported <Judd Nagel - Last Filed: 09/03/18 22:49> <Gena Syed - Last Filed: 09/03/18 23:57> - General Chief Complaint: Altered Mental Status Stated Complaint: AMS, HYPOXIA Past History <Judd Nagel - Last Filed: 09/03/18 22:49> - Past Medical History Anemia: No Asthma: No Cancer: No Cardiac Disorders: Yes (stents inserted 2009) CVA: No COPD: No CHF: No Dementia: Yes Diabetes: Yes (x10 yrs) GI Disorders: No Disorders: No HTN: Yes Hypercholesterolemia: Yes Liver Disease: No Seizures: No Thyroid Disease: No - Surgical History Abdominal Surgery: Yes (Colon resection as an ) Appendectomy: Yes Cardiac Surgery: No Cholecystectomy: No Lung Surgery: No Neurologic Surgery: No Orthopedic Surgery: No - Suicide/Smoking/Psychosocial Hx Smoking History: Former smoker Have you smoked in the past 12 months: No If you are a former smoker, when did you quit?: 40 years ago Hx Alcohol Use: No Drug/Substance Use Hx: No Substance Use Type: None Hx Substance Use Treatment: No <Gena Syed Leandro - Last Filed: 09/03/18 23:57> - Past Medical History Allergies/Adverse Reactions: Allergies Allergy/AdvReac Type Severity Reaction Status Date / Time hydrochlorothiazide Allergy Intermediate Delirium Verified 08/07/18 15:15 Penicillins Allergy Verified 08/07/18 15:15 Home Medications: Ambulatory Orders Atorvastatin Ca [Lipitor] 20 mg PO DAILY 05/09/12 Clopidogrel Bisulfate [Plavix -] 75 mg PO DAILY 05/09/12 Lisinopril [Prinivil] 10 mg PO DAILY 05/09/12 Insulin Aspart [Novolog Flexpen] 4 - 7 unit SQ QID #5 pen 01/20/17 Furosemide [Lasix] 20 mg PO ASDIR 11/26/17 Insulin Glargine,Hum.rec.anlog [Lantus Solostar PEN -] 15 units SQ HS 11/26/17 Memantine HCl [Namenda Xr] 28 mg PO DAILY 11/26/17 Quetiapine Fumarate [Seroquel -] 25 mg PO HS 11/26/17 traZODone HCL [Trazodone HCl] 100 mg PO HS 11/26/17 Review of Systems - Review of Systems Able to Perform ROS?: No (limited due to dementia) <Judd Nagel - Last Filed: 09/03/18 22:49> *Physical Exam - Vital Signs Last Vital Signs Temp Pulse Resp BP Pulse Ox 100.6 F H 85 24 H 124/67 97 09/03/18 20:54 09/03/18 20:54 09/03/18 20:54 09/03/18 20:54 09/03/18 21:35 - Physical Exam Comments: 09/03/18 22:00 GENERAL: Awake but not responsive muttering unintelligible words intermittently. No acute distress. HEAD: No signs of trauma EYES: PERRLA, EOMI, sclera anicteric, conjunctiva clear ENT: +mucous membranes dry. Auricles normal inspection, hearing grossly normal, nares patent, oropharynx clear without exudates. NECK: Normal ROM, supple, no lymphadenopathy, JVD, or masses LUNGS: +expiratory crackles heard at base of lungs bilaterally with fair air exchange. Breath sounds equal. No wheezes HEART: Regular rate and rhythm, normal S1 and S2, no murmurs, rubs or gallops ABDOMEN: Soft, nontender, normoactive bowel sounds. No guarding, no rebound. No masses EXTREMITIES: Normal range of motion, no edema. No clubbing or cyanosis. No cords, erythema, or tenderness NEUROLOGICAL: +speaking unintelligible words but does follow commands. Gait not tested but moving all four extremities equally. Cranial nerves II through XII grossly intact. SKIN: Warm, Dry, normal turgor, no rashes or lesions noted. 09/03/18 22:52 <Judd Nagel - Last Filed: 09/03/18 22:49> Moderate Sedation - Procedure Monitoring Vital Signs: Procedure Monitoring Vital Signs Temperature 100.6 F H 09/03/18 20:54 Pulse Rate 85 09/03/18 20:54 Respiratory Rate 24 H 09/03/18 20:54 Blood Pressure 124/67 09/03/18 20:54 O2 Sat by Pulse Oximetry (%) 97 09/03/18 21:35 <Judd Nagel - Last Filed: 09/03/18 22:49> ED Treatment Course - LABORATORY CBC & Chemistry Diagram: 09/03/18 21:05 09/03/18 21:10 - ADDITIONAL ORDERS Additional order review: Laboratory Results 09/03/18 21:10 Troponin I 0.19 H D 09/03/18 21:05 RBC 4.04 MCV 89.9 MCHC 32.0 RDW 14.6 MPV 8.8 Neutrophils % 85.1 H Lymphocytes % 5.6 L D Monocytes % 7.8 Eosinophils % 0.8 Basophils % 0.7 <Judd Nagel - Last Filed: 09/03/18 22:49> - LABORATORY CBC & Chemistry Diagram: 09/03/18 21:05 09/03/18 21:10 <Gena Syed - Last Filed: 09/03/18 23:57> Medical Decision Making - Medical Decision Making Documentation has been prepared under my direction and personally reviewed by me in its entirety. I attest that this documented accurately reflects all work, treatment, procedures and medical decision making performed by me. As noted above, this 83-year-old man with a history of IDDM, CAD and dementia is brought in by ambulance accompanied by his family with a one-day history of increased confusion/agitation and cough. Recent history notable for brief admission here 1 month ago for UTI and confusion; he was in short-term rehabilitation until 3 days ago. Family notes that since being home, he is much less mobile and more confused than he was prior to his UTI 1 month ago. Tonight, they noted that he appeared restless and agitated. They used pulse oximetry equipment that the patient's has for her respiratory illness. Family noted room air pulse oximetry of 84% with a rapid heartbeat. They used patient's 's supplemental oxygen and patient became more comfortable. EMS was called and patient brought here. On presentation here patient has a low- grade temperature 100.6F orally. His pulse oximetry is 94% on room air, Heart rate (85/minute) and BP (125/67) are unremarkable. Remainder of the exam as noted Portable chest x-ray performed with preliminary interpretation notable for bilateral basilar interstitial markings, essentially unchanged from previous chest x-ray taken last month during his admission here. (Chest CT performed at that time revealed chronic interstitial changes at the bases.) No other new significant abnormalities seen. 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 No significant difference as compared to 12-lead EKG dated 08/07/18 CBC/chemistry profile/cardiac enzymes/lactic acid/UA ordered. No elevation of white blood cell count or other abnormality seen on CBC. Cardiac enzymes notable for troponin of 0.19 (patient had similar mild elevation of troponin on presentation last month) Urinanalysis is from catheterized sample: equivocal evidence of UTI(micro with5- 10 RBC/1+bact,1+epi); urine sent for culture and sensitivity Although CXR is not markedly suggestive of pneumonia, with patient's fever/cough /increased confusion and decreased pulse oximetry, patient will be treated empirically for respiratory infection. Since he has been in hospital/ rehabilitation setting for the last month, broad spectrum coverage with vancomycin/aztreonam will be administered(patient was given these antibiotics during previous admission without adverse effects) 09/03/18 23:52 [facility] Patient will be admitted to Dr. Davila's service. <Gena Syed - Last Filed: 09/03/18 23:57> *DC/Admit/Observation/Transfer - Attestations Scribe Attestion: 09/03/18 22:00 Documentation prepared by ARIANNA Ferrell, acting as medical nurse for Gena Syed MD. <Judd Nagel - Last Filed: 09/03/18 22:49> - Discharge Dispostion Decision to Admit order: Yes <Gena Syed - Last Filed: 09/03/18 23:57> Diagnosis at time of Disposition: Altered mental status Qualifiers: Altered mental status type: unspecified Qualified Code(s): R41.82 - Altered mental status, unspecified Fever Qualifiers: Fever type: unspecified Qualified Code(s): R50.9 - Fever, unspecified - Discharge Dispostion Condition at time of disposition: Stable
[2018-09-03 21:32] LABS: BASO % 0.7 % (0-2.0); EOS % 0.8 % (0-4.5); HEMATOCRIT 36.3 % (35.4-49); HEMOGLOBIN 11.6 GM/dl (11.7-16.9); LYMPH % 5.6 % (8-40); MCH 28.8 pg (25.7-33.7); MEAN CELL VOLUME 89.9 fl (80-96); MEAN PLT VOLUME 8.8 fl (7.5-11.1); MONO % 7.8 % (3.8-10.2); NEUT % 85.1 % (42.8-82.8); PLATELET COUNT 188 K/MM3 (134-434); RBC 4.04 M/mm3 (4.00-5.60); RDW 14.6 % (11.9-15.9)
[2018-09-03 21:34] VITALS: BMI 23.7
[2018-09-03 21:49] LABS: ALBUMIN 3.1 g/dl (3.5-5.0); ALK PHOS 117 U/L (32-92); ANION GAP 9 MMOL/L (8-16); BILIRUBIN,TOTAL 0.6 mg/dl (0.2-1.0); BLOOD UREA NITROGEN 23 mg/dl (7-18); CALCIUM 8.5 mg/dl (8.4-10.2); CHLORIDE 104 mmol/L (98-107); CO2 25 mmol/L (22-28); GLUCOSE,RANDOM 249 mg/dl (74-106); POTASSIUM 4.2 mmol/L (3.5-5.1); SGOT/AST 18 U/L (10-42); SGPT/ALT 13 U/L (10-40); SODIUM 138 mmol/L (136-145); TOT PROT 6.6 g/dl (6.4-8.3)
[2018-09-03 22:03] LABS: URINE APPEARANCE Clear; URINE BILIRUBIN 1+ (NEGATIVE); URINE COLOR Yellow; URINE GLUCOSE (UA) Trace (NEGATIVE); URINE KETONE Trace (NEGATIVE); URINE LEUK ESTERASE Negative (NEGATIVE); URINE NITRITE Negative (NEGATIVE); URINE PROTEIN 1+ (NEGATIVE)
[2018-09-03 22:11] LABS: AMORP URATES 2+ /hpf (NONE SEEN); EPI CELLS 1+ /HPF; URINE BACTERIA 1+ /hpf (NEGATIVE); URINE WBC 0-2 (0-2)
[2018-09-03] MEDS ORDERED: ACETAMINOPHEN 1000 MG/100 ML VIAL (NON FORMULARY) IVPB ONE (22:13)
[2018-09-03] MEDS ORDERED: ACETAMINOPHEN INJECTION 100 ML IVPB ONE (22:18)
[2018-09-03] MEDS ORDERED: VANCOMYCIN 1,000 MG in DEXTROSE 5%-WATER - 250 ML IVPB ONE (22:24)
[2018-09-03] MEDS ORDERED: VANCOMYCIN 1,000 MG VIAL (RESTRICTED TO ID ONLY) ONE (22:29)
[2018-09-03] MEDS ORDERED: AZTREONAM 1 GM in DEXTROSE 5%-WATER - 50 ML IVPB ONE (22:55)
--- NOTE | 2018-09-03 23:51 | HP ---
Admitting History and Physical - Primary Care Physician PCP: Kannan Zimmerman - Admission Chief Complaint: AMS, Decreased Appetite History of Present Illness: This is a 83 y/o man with a past medical history of Dementia, HTN, HLD, [place] ( 10yrs, Stent/Plavix), IDDM, recent admission 08/07/18- Sepsis, UTI, PNA. Who presents to the ED for AMS and decreased appetite. Patient has Dementia unable to provide HPI, his daughters were not at bedside. Per ED record: Post hospital stay, patient was transferred to short term rehab and returned home on . Patients daughters noticed that the patient would become easily confused and would refuse to get out of bed since his admission in July. They also noticed a violent cough since last night and constipation and loss of appetite since 08/31/18. Today the patient was found by daughters to be more confused, having a pulse oximetry at 84% tonight, and also noted to be tachycardic during pulse oximetry. On arrival to the ED, patient's spo2 was 94% on 2L, T max 100.6. 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: Dementia Cardiovascular: Yes: CAD, HTN, Hyperlipdemia, [place] Endocrine: Yes: Diabetes Mellitus - Past Surgical History Past Surgical History: Yes: Appendectomy, Stent - Smoking History Smoking history: Former smoker Have you smoked in the past 12 months: No If you are a former smoker, when did you quit?: 40 years ago - Alcohol/Substance Use Hx Alcohol Use: No History of Substance Use: reports: None - Social History Usual Living Arrangement: Yes: With Child ADL: Family Assistance History of Recent Travel: No Home Medications - Allergies Allergies/Adverse Reactions: Allergies Allergy/AdvReac Type Severity Reaction Status Date / Time hydrochlorothiazide Allergy Intermediate Delirium Verified 08/07/18 15:15 Penicillins Allergy Verified 08/07/18 15:15 - Home Medications Home Medications: Ambulatory Orders Atorvastatin Ca [Lipitor] 20 mg PO DAILY 05/09/12 Clopidogrel Bisulfate [Plavix -] 75 mg PO DAILY 05/09/12 Lisinopril [Prinivil] 10 mg PO DAILY 05/09/12 Insulin Aspart [Novolog Flexpen] 4 - 7 unit SQ QID #5 pen 01/20/17 Furosemide [Lasix] 20 mg PO ASDIR 03/17/18 Insulin Glargine,Hum.rec.anlog [Lantus Solostar PEN -] 15 units SQ HS 11/26/17 Memantine HCl [Namenda Xr] 28 mg PO DAILY 11/26/17 Quetiapine Fumarate [Seroquel -] 25 mg PO HS 11/26/17 traZODone HCL [Trazodone HCl] 100 mg PO HS 11/26/17 Family Disease History - Family Disease History Family History: Unable to Obtain Review of Systems Unable to obtain ROS, reason: Dementia Physical Examination Vital Signs: Vital Signs Temperature 100.6 F H 09/03/18 20:54 Pulse Rate 70 09/03/18 22:46 Respiratory Rate 20 09/03/18 22:46 Blood Pressure 117/69 09/03/18 22:46 O2 Sat by Pulse Oximetry (%) 97 09/03/18 22:46 Constitutional: Yes: No Distress, Calm Eyes: Yes: Conjunctiva Clear, PERRL HENT: Yes: WNL, Atraumatic, Normocephalic Neck: Yes: WNL, Supple, Trachea Midline Cardiovascular: Yes: WNL, Regular Rate and Rhythm, S1, S2 Respiratory: Yes: Diminished, On Nasal O2 Gastrointestinal: Yes: WNL, Normal Bowel Sounds, Soft ...Rectal Exam: Yes: Deferred Renal/: Yes: Incontinence Breast(s): Yes: WNL Musculoskeletal: Yes: WNL Extremities: Yes: WNL Edema: No Peripheral Pulses WNL: Yes Neurological: Yes: Confusion, Cran Nerves II-XII Intact ...Motor Strength: LUE (4/5), LLE (4/5), RUE (4/5), RLE (4/5) Psychiatric: Yes: Alert Labs: CBC, BMP 09/03/18 21:05 09/03/18 21:10 Imaging - Results Chest X-ray: Image Reviewed Problem List - Problems (1) HCAP (healthcare-associated pneumonia) Code(s): J18.9 - PNEUMONIA, UNSPECIFIED ORGANISM (2) Metabolic encephalopathy Code(s): G93.41 - METABOLIC ENCEPHALOPATHY (3) Altered mental status Code(s): R41.82 - ALTERED MENTAL STATUS, UNSPECIFIED Qualifiers: Altered mental status type: unspecified Qualified Code(s): R41.82 - Altered mental status, unspecified (4) Dementia Code(s): F03.90 - UNSPECIFIED DEMENTIA WITHOUT BEHAVIORAL DISTURBANCE (5) CAD (coronary artery disease) Code(s): I25.10 - ATHSCL HEART DISEASE OF [place] CORONARY ARTERY W/O ANG PCTRS (6) Diabetes mellitus Code(s): E11.9 - TYPE 2 DIABETES MELLITUS WITHOUT COMPLICATIONS (7) HLD (hyperlipidemia) Code(s): E78.5 - HYPERLIPIDEMIA, UNSPECIFIED Assessment/Plan This is a 83 y/o man with a PMHx of: Dementia, [place] (10yrs ago, Stent/Plavix), HTN , HLD, IDDM, Former Smoker. Admitted to Telemetry for Acute Metabolic Encephalopathy, Pneumonia, Hypoxia, Elevated Troponin for further evaluation of their emergent condition. Plan: 1. Acute Metabolic Encephalopathy Likely secondary to Pneumonia vs advance disease process Neurochecks Fall Precautions 2. Pneumonia, Hypoxia [id number] 3 Chest Xray image- coarse lung changes, ?infiltrates upper, lower left lobes Blood Cultures-pending Urine Legionella No leukocytosis, +neutrophila, T Max 100.6 Will repeat CBC, BMP in am Vancomycin, Azetreonam given in ED Will continue to treat empirically for HCAP O2 Duonebs prn 3. Elevated Troponin, CAD, [place], HTN, HLD s/p stent Continue Cardiac Monitoring Serial Enzymes, elevated will trend, likely secondary to Demand Ischemia EKG- NSR with RBBB and left anterior fascicular block, no change from prior study 07/2018 Appreciate Cardiology consult Asa Continue home meds 4. IDDM not well controlled, likely due to Pneumonia BGMs ISS Continue home meds 5. Dementia Continue home meds FEN PO fluids as tolerated Replete lytes Low Na, Diabetic Diet DVT ppx OOB SCDs Heparin SQ Code Status: Full Code, HCP Dispo: Requires Inpatient Care Visit type - Emergency Visit Emergency Visit: Yes ED Registration Date: 09/03/18 Care time: The patient presented to the Emergency Department on the above date and was hospitalized for further evaluation of their emergent condition. - New Patient This patient is new to me today: Yes Date on this admission: 09/03/18 - Critical Care Critical Care patient: No
[2018-09-04 08:22] LABS: BASO % 0.8 % (0-2.0); EOS % 2.2 % (0-4.5); HEMATOCRIT 33.8 % (35.4-49); HEMOGLOBIN 10.6 GM/dl (11.7-16.9); LYMPH % 9.3 % (8-40); MCH 28.4 pg (25.7-33.7); MCHC 31.3 g/dl (32.0-35.9); MEAN CELL VOLUME 90.8 fl (80-96); MEAN PLT VOLUME 8.9 fl (7.5-11.1); MONO % 12.3 % (3.8-10.2); NEUT % 75.4 % (42.8-82.8); PLATELET COUNT 173 K/MM3 (134-434); RBC 3.73 M/mm3 (4.00-5.60); RDW 14.5 % (11.9-15.9); WHITE BLOOD COUNT 5.7 K/mm3 (4.0-10.8)
--- NOTE | 2018-09-04 08:31 | PN ---
Physical Exam: SUBJECTIVE: Patient seen and examined at bedside. OBJECTIVE: Vital Signs Period Temp Pulse Resp BP Sys/Hernadez Pulse Ox Last 24 Hr 98.1 F-100.6 F 59-85 18-24 107-126/54-76 93-97 GENERAL: The patient is awake. Speech is gibberish, no discernible words. Responds to voice, shakes hands, smiles. In no apparent distress, no signs of pain. LUNGS: Breath sounds equal, clear to auscultation bilaterally, no wheezes, no crackles, no accessory muscle use. HEART: Regular rate and rhythm, S1, S2 ABDOMEN: Soft, nontender, nondistended EXTREMITIES: 2+ pulses, warm, well-perfused, no edema, no calf tenderness SKIN: warm, dry, normal turgor, no rashes, no pressure ulcers seen Laboratory Results - last 24 hr 09/03/18 09/03/18 09/03/18 21:05 21:10 21:10 WBC 7.0 RBC 4.04 Hgb 11.6 L Hct 36.3 D MCV 89.9 MCH 28.8 MCHC 32.0 RDW 14.6 Plt Count 188 MPV 8.8 Absolute Neuts (auto) 6.0 Neutrophils % 85.1 H Lymphocytes % 5.6 L D Monocytes % 7.8 Eosinophils % 0.8 Basophils % 0.7 Sodium 138 Potassium 4.2 Chloride 104 D Carbon Dioxide 25 Anion Gap 9 BUN 23 H Creatinine 1.0 Creat Clearance w eGFR > 60 POC Glucometer Random Glucose 249 H D Lactic Acid Calcium 8.5 Total Bilirubin 0.6 AST 18 ALT 13 Alkaline Phosphatase 117 H D Creatine Kinase 45 Troponin I 0.19 H D Total Protein 6.6 Albumin 3.1 L Urine Color Urine Appearance Urine pH Ur Specific [place] Urine Protein Urine Glucose (UA) Urine Ketones Urine Blood Urine Nitrite Urine Bilirubin Urine Urobilinogen Ur Leukocyte Esterase Urine RBC Urine WBC Ur Epithelial Cells Amorphous Urates Urine Bacteria 09/03/18 09/03/18 09/04/18 21:10 21:56 03:00 WBC RBC Hgb Hct MCV MCH MCHC RDW Plt Count MPV Absolute Neuts (auto) Neutrophils % Lymphocytes % Monocytes % Eosinophils % Basophils % Sodium Potassium Chloride Carbon Dioxide Anion Gap BUN Creatinine Creat Clearance w eGFR POC Glucometer Random Glucose Lactic Acid 1.1 Calcium Total Bilirubin AST ALT Alkaline Phosphatase Creatine Kinase 40 Troponin I 0.18 H Total Protein Albumin Urine Color Yellow Urine Appearance Clear Urine pH 5.0 Ur Specific [place] >= 1.030 Urine Protein 1+ H Urine Glucose (UA) Trace Urine Ketones Trace Urine Blood Trace-intact H Urine Nitrite Negative Urine Bilirubin 1+ H Urine Urobilinogen 1.0 Ur Leukocyte Esterase Negative Urine RBC 5-10 Urine WBC 0-2 Ur Epithelial Cells 1+ Amorphous Urates 2+ Urine Bacteria 1+ 09/04/18 07:09 WBC RBC Hgb Hct MCV MCH MCHC RDW Plt Count MPV Absolute Neuts (auto) Neutrophils % Lymphocytes % Monocytes % Eosinophils % Basophils % Sodium Potassium Chloride Carbon Dioxide Anion Gap BUN Creatinine Creat Clearance w eGFR POC Glucometer 166 Random Glucose Lactic Acid Calcium Total Bilirubin AST ALT Alkaline Phosphatase Creatine Kinase Troponin I Total Protein Albumin Urine Color Urine Appearance Urine pH Ur Specific [place] Urine Protein Urine Glucose (UA) Urine Ketones Urine Blood Urine Nitrite Urine Bilirubin Urine Urobilinogen Ur Leukocyte Esterase Urine RBC Urine WBC Ur Epithelial Cells Amorphous Urates Urine Bacteria Active Medications Generic Name Dose Route Start Last Admin Trade Name Álvaroq PRN Reason Stop Dose Admin Atorvastatin Calcium 20 mg 09/04/18 22:00 Lipitor - PO HS [facility] Clopidogrel Bisulfate 75 mg 09/04/18 10:00 Plavix - PO DAILY [facility] Heparin Sodium (Porcine) 5,000 unit 09/04/18 10:00 Heparin - SQ BID [facility] Vancomycin HCl 1,000 mg in 250 mls @ 200 mls/hr 09/05/18 10:00 Vancomycin (Pre-Docked) IVPB Q24H [facility] Protocol Vancomycin HCl 1,000 mg in 250 mls @ 200 mls/hr 09/04/18 10:00 Vancomycin (Pre-Docked) IVPB 09/04/18 11:14 ONCE ONE Protocol Aztreonam 1 gm/ Dextrose 50 mls @ 100 mls/hr 09/04/18 18:00 IVPB Q8H-IV [facility] Protocol Aztreonam 1 gm/ Dextrose 50 mls @ 100 mls/hr 09/04/18 10:00 IVPB 09/04/18 10:29 ONCE ONE Protocol Insulin Aspart 1 vial 09/04/18 07:00 Novolog Vial Sliding Scale - SQ ACHS [facility] Protocol Lisinopril 10 mg 09/04/18 10:00 Prinivil PO DAILY [facility] Non-Formulary Medication 28 mg 09/04/18 10:00 Memantine Hcl [Namenda Xr] PO DAILY [facility] Quetiapine Fumarate 25 mg 09/04/18 22:00 Seroquel - PO HS [facility] ASSESSMENT/PLAN: 83 year-old male with a PMH significant for HTN, HLD, CAD s/p IA s/p stents on Plavix, IDDM, and dementia x 2 years. Recently admitted 08/07 - 08/11/18 for sepsis secondary to pneumonia +/- UTI. Went to SNF and returned home 08/31/18. Daughters brought him to ED for multiple complaints. Pneumonia --was treated from 08/07-08/11 for CAP with aztreonam and Vanc and was discharged on PO levofloxacin for an additional 7 days --then spent 20 days in SNF --on this admission, Tm 100.6, no leukocytosis, and CXR is essentially without change --continue aztreonam (day #2) and vanc (day #2) --ID following Hypertension --continue Lisinopril Hyperlipidemia --continue Lipitor Coronary artery disease s/p stents --continue Plavix, statin IDDM --Levemir 15U qhs --Novolog sliding scale coverage Dementia --continue Namenda --continue Trazadone, Seroquel at night; monitor for signs of oversedation FEN Fluids: PO intake adequate Electrolytes: replete as indicated Nutrition: diabetic, low Na DVT prophylaxis: subq heparin Physical therapy Dispo: continues to require inpatient care. Need to discuss goals of care with daughters. Mother brought to ED today. Full Code. Visit type - Emergency Visit Emergency Visit: Yes ED Registration Date: 09/03/18 Care time: The patient presented to the Emergency Department on the above date and was hospitalized for further evaluation of their emergent condition. - New Patient This patient is new to me today: Yes Date on this admission: 09/04/18 - Critical Care Critical Care patient: No
[2018-09-04 08:40] LABS: ANION GAP 6 MMOL/L (8-16); BLOOD UREA NITROGEN 20 mg/dl (7-18); CALCIUM 8.3 mg/dl (8.4-10.2); CHLORIDE 107 mmol/L (98-107); CO2 26 mmol/L (22-28); CREATININE 0.9 mg/dl (0.6-1.3); GLUCOSE,RANDOM 183 mg/dl (74-106); POTASSIUM 4.1 mmol/L (3.5-5.1); SODIUM 139 mmol/L (136-145)
[2018-09-04] MEDS ORDERED: PATIENT'S OWN MEDICATION (NON-FORMULARY) (Memantine Hcl [Namenda Xr] 28 MG) PO SCH (10:00)
[2018-09-04] MEDS ORDERED: VANCOMYCIN 1 GRAM (PRE-DOCKED) 1,000 MG/250 ML BAG IVPB ONE (10:00)
[2018-09-04] MEDS ORDERED: AZTREONAM 1 GM in DEXTROSE 5%-WATER - 50 ML IVPB ONE (10:00)
[2018-09-04] MEDS: LISINOPRIL 10 MG TABLET (FP) PO SCH (10:19)
[2018-09-04] MEDS: HEPARIN NA (PORCINE) 5,000 UNITS/ML 1ML VIAL SQ SCH ×2 (10:19→21:26)
[2018-09-04] MEDS: CLOPIDOGREL BISULFATE 75 MG TABLET (FP) PO SCH (10:19)
--- NOTE | 2018-09-04 10:55 | PN ---
Progress Note (short form) - Note Progress Note: PULMONARY CONSULTATION DICTATED 09/04/18 IMP ACUTE HYPOXEMIC RESPIRATORY FAILURE PNEUMONIA INTERSTITIAL LUNG DISEASE ALTERED MENTAL STATUS ASHD S/P ND,S/P STENTS DEMENTIA +TROPONIN HTN HLD DM PLAN IV ABX INHALED BRONCHODILATORS CULTURES TREND TROPONINS F/U CHEST X-RAYS DR PATEL Problem List - Problems (1) Acute hypoxemic respiratory failure Code(s): J96.01 - ACUTE RESPIRATORY FAILURE WITH HYPOXIA (2) Altered mental status Code(s): R41.82 - ALTERED MENTAL STATUS, UNSPECIFIED Qualifiers: Altered mental status type: unspecified Qualified Code(s): R41.82 - Altered mental status, unspecified (3) CAD (coronary artery disease) Code(s): I25.10 - ATHSCL HEART DISEASE OF [place] CORONARY ARTERY W/O ANG PCTRS (4) Confusion Code(s): R41.0 - DISORIENTATION, UNSPECIFIED (5) Dementia Code(s): F03.90 - UNSPECIFIED DEMENTIA WITHOUT BEHAVIORAL DISTURBANCE (6) Diabetes mellitus Code(s): E11.9 - TYPE 2 DIABETES MELLITUS WITHOUT COMPLICATIONS (7) HLD (hyperlipidemia) Code(s): E78.5 - HYPERLIPIDEMIA, UNSPECIFIED (8) HTN (hypertension) Code(s): I10 - ESSENTIAL (PRIMARY) HYPERTENSION (9) Interstitial lung disease Code(s): J84.9 - INTERSTITIAL PULMONARY DISEASE, UNSPECIFIED (10) Pneumonia Code(s): J18.9 - PNEUMONIA, UNSPECIFIED ORGANISM
--- NOTE | 2018-09-04 12:02 | CONS ---
DATE OF CONSULTATION: 09/04/2018 REFERRING PHYSICIAN: HISTORY: History is obtained from the chart. The patient is a poor historian. The patient is an 83-year-old white male with a past medical history of ASHD status post TN approximately 10 years ago status post stent, insulin-dependent diabetes mellitus, hypertension, hyperlipidemia, dementia recently hospitalized at [facility] secondary to pneumonia admitted to [facility] on September 03 with altered mental status. Apparently, history was obtained from the daughter. The daughter was in the emergency room. Apparently since his most recent admission on August 07 secondary to UTI and pneumonia. He was transferred to short-term rehabilitation. He returned home on August 31. According to the daughters, they noticed that the patient had progressive confusion and refused to get out of bed since admission in July. He also noted a cough since last night and loss of appetite since August 31. Today on the day of admission the patient was noted by his daughters at home to have an O2 saturation of 84% on room air and tachycardic at which time he presented to the emergency room. In the ER, he had a chest x-ray performed, which revealed increased markings bilaterally. Of note, the patient underwent a CT scan of the chest on most recent admission and was noted to have chronic interstitial changes bilaterally and some emphysematous changes and possible infiltrates in the upper lobes. The patient was admitted for further therapy. No further history is available at this time. PAST MEDICAL HISTORY: Again includes ASHD status post stents on Plavix, insulin-dependent diabetes mellitus, hypertension, hyperlipidemia, dementia. SOCIAL HISTORY: Apparently history of smoking. Quit 40 years ago. Unknown occupation. REVIEW OF SYSTEMS: Unable to obtain secondary to dementia. CURRENT MEDICATIONS: Include Namenda, Prinivil, Azactam, vancomycin, heparin, Seroquel, Lipitor, NovoLog, and Plavix. PHYSICAL EXAMINATION: General: The patient is an elderly white male well-developed, well-nourished awake, alert, confused in no acute distress. Vital Signs: O2 saturation is 89% on room air. He is afebrile. Blood pressure 110/68, respiratory rate 18. HEENT: Normocephalic and atraumatic. Neck: Supple. Heart: Regular S1, S2. Chest: Poor inspiratory effort. The patient does not comply with chest exam and does not take a deep breath. No rhonchi or wheezes appreciated. Abdomen: Soft. Bowel sounds are positive. Extremities: No cyanosis or edema. LABORATORIES: WBC 5.7, hemoglobin 10.6, hematocrit 33.3 with a platelet count of 173,000. INR 0.99, BUN 6, creatinine 0.9. Troponin 0.17. Chest x-ray, increased markings bilaterally. Cannot rule out superimposed infiltrates. IMPRESSION: 1. Acute hypoxemic respiratory failure secondary to possible pneumonia, treated nosocomial in view of the patient's recent hospitalization. 2. Underlying chronic interstitial lung disease. 3. Altered mental status likely toxic metabolic. 4. Positive troponin. 5. Arteriosclerotic heart disease status post TN status post stents. 6. Dementia. 7. Hypertension. 8. Hyperlipidemia. PLAN: IV antibiotics. Inhaled bronchodilators. Supplemental O2 to maintain O2 saturations greater than 90%. Obtain follow up chest x-ray, cultures. Trend troponins. Char [id number]
--- NOTE | 2018-09-04 14:32 | EKG ---
Test Reason : Blood Pressure : / mmHG Vent. Rate : 078 BPM Atrial Rate : 078 BPM P-R Int : 134 ms QRS Dur : 130 ms QT Int : 428 ms P-R-T Axes : 014 -51 -08 degrees QTc Int : 487 ms NORMAL SINUS RHYTHM RIGHT BUNDLE BRANCH BLOCK LEFT ANTERIOR FASCICULAR BLOCK BIFASCICULAR BLOCK ABNORMAL ECG WHEN COMPARED WITH ECG OF 07-AUG-2018 16:27, PREMATURE VENTRICULAR COMPLEXES ARE NO LONGER PRESENT CRITERIA FOR SEPTAL INFARCT ARE NO LONGER PRESENT Confirmed by Fabricio Alvares ([id number]) on 09/04/2018 2:32:46 PM Referred By: JUAN M ALSTON Confirmed By:Fabricio Alvares
--- NOTE | 2018-09-04 14:32 | EKG ---
Test Reason : Blood Pressure : / mmHG Vent. Rate : 070 BPM Atrial Rate : 070 BPM P-R Int : 146 ms QRS Dur : 132 ms QT Int : 450 ms P-R-T Axes : 027 -49 -31 degrees QTc Int : 486 ms SINUS RHYTHM WITH OCCASIONAL PREMATURE VENTRICULAR COMPLEXES RIGHT BUNDLE BRANCH BLOCK LEFT ANTERIOR FASCICULAR BLOCK BIFASCICULAR BLOCK ABNORMAL ECG WHEN COMPARED WITH ECG OF 03-SEP-2018 21:27, PREMATURE VENTRICULAR COMPLEXES ARE NOW PRESENT Confirmed by Fabricio Alvares ([id number]) on 09/04/2018 2:32:39 PM Referred By: JUAN Confirmed By:Fabricio Alvares
[2018-09-04] MEDS ORDERED: INSULIN (NOVOLOG) ASPART 100 UNITS/ML 10ML VIAL ONE (15:59)
[2018-09-04] MEDS: INSULIN SLIDING SCALE (NOVOLOG) 1 VIAL SQ SCH ×4 (16:09→21:29)
--- NOTE | 2018-09-04 18:01 | CON.CARD ---
Consult Consult Specialty:: cardiology Reason for Consultation:: elevated TNI - History of Present Illness Chief Complaint: Pt is smiling; unable to contribute to history/cc (dementia); daughter and aide are present. History of Present Illness: The patient is an 83 year old white man with a past medical history of IA (10 years ago; s/p stents; on plavix), insulin dependent diabetes, HLD, HTN, and dementia here today for evaluation of altered mental status. Due to the patient s dementia, he was not able to give a history so information came from his daughters. As per daughters, patient was seen in this ER on 08/07/18 and was admitted for UTI, pneumonia, and sepsis. After a brief stay, patient was transferred to short term rehab and returned home on 08/31/18. Patients daughters noticed that the patient would become easily confused and would refuse to get out of bed since his admission in July. They also noticed a violent cough since last night and constipation and loss of appetite since 08/31. Today the patient was found by daughters to be more confused, having a pulse oximetry at 84% tonight, and also noted to be tachycardic during pulse oximetry. Pt's daughter says that, over the past several months, pt has deteriorated (can no longer walk on his own; speaks nonsensically). 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 Cardio/Vascular: Yes: CAD, HTN, Hyperlipdemia, [place] Endocrine: Yes: Diabetes Mellitus - Past Surgical History Past Surgical History: Yes: Appendectomy, Stent - Alcohol/Substance Use Hx Alcohol Use: No History of Substance Use: reports: None - Smoking History Smoking history: Former smoker Have you smoked in the past 12 months: No If you are a former smoker, when did you quit?: 40 years ago - Social History ADL: Family Assistance History of Recent Travel: No Home Medications - Allergies Allergies/Adverse Reactions: Allergies Allergy/AdvReac Type Severity Reaction Status Date / Time hydrochlorothiazide Allergy Intermediate Delirium Verified 08/07/18 15:15 Penicillins Allergy Verified 08/07/18 15:15 - Home Medications Home Medications: Ambulatory Orders Atorvastatin Ca [Lipitor] 20 mg PO DAILY 05/09/12 Clopidogrel Bisulfate [Plavix -] 75 mg PO DAILY 05/09/12 Lisinopril [Prinivil] 10 mg PO DAILY 05/09/12 Insulin Aspart [Novolog Flexpen] 4 - 7 unit SQ QID #5 pen 01/20/17 Furosemide [Lasix] 20 mg PO ASDIR 11/26/17 Insulin Glargine,Hum.rec.anlog [Lantus Solostar PEN -] 15 units SQ HS 11/26/17 Memantine HCl [Namenda Xr] 28 mg PO DAILY 11/26/17 Quetiapine Fumarate [Seroquel -] 25 mg PO HS 11/26/17 traZODone HCL [Trazodone HCl] 100 mg PO HS 11/26/17 levoFLOXacin [Levaquin -] 250 mg PO DAILY #5 tablet 09/06/18 Review of Systems Unable to obtain ROS, reason: dementia - Review of Systems Constitutional: reports: Weakness - Risk Factors Known Risk Factors: Yes: Age, Diabetes Mellitus, Gender, Hypertension, Physical Inactivity, Prior IA /Emb Stroke, Other Vital Signs: Vital Signs Temperature 98.9 F 09/04/18 14:18 Pulse Rate 67 09/04/18 14:18 Respiratory Rate 18 09/04/18 14:18 Blood Pressure 125/60 09/04/18 14:18 O2 Sat by Pulse Oximetry (%) 93 L 09/04/18 14:18 Constitutional: Yes: Thin Eyes: Yes: WNL Neck: Yes: WNL Respiratory: Yes: WNL Gastrointestinal: Yes: WNL Renal/: No: Anuria Cardiovascular: Yes: WNL JVD: No Carotid Bruit: No Heart Sounds: Yes: S1, S2 Musculoskeletal: Yes: Muscle Weakness Extremities: Yes: WNL Edema: No Peripheral Pulses WNL: Yes Integumentary: Yes: WNL Neurological: Yes: Confusion, Weakness Psychiatric: Yes: Other (dementia) - Other Data Labs, Other Data: CBC, BMP 09/04/18 07:10 09/04/18 07:10 Troponin, BNP 09/03/18 09/04/18 09/04/18 21:10 03:00 07:32 Troponin I 0.19 H D 0.18 H 0.17 H Troponin, BNP 09/03/18 09/04/18 09/04/18 21:10 03:00 07:32 Troponin I 0.19 H D 0.18 H 0.17 H Imaging - Results EKG: Image Reviewed (NSR; LAFB; RBBB;) Problem List - Problems (1) Fever Code(s): R50.9 - FEVER, UNSPECIFIED Qualifiers: Fever type: unspecified Qualified Code(s): R50.9 - Fever, unspecified (2) CAD (coronary artery disease) Assessment/Plan: f/u prior hx and workup (reported hx IA 10 yrs ago; s/p stents; on clopidogrel). On atorvastatin. ECHO 2017: normal LVEF; EKG: NSR: bifascicular block (RBBB; LAFB). Code(s): I25.10 - ATHSCL HEART DISEASE OF [place] CORONARY ARTERY W/O ANG PCTRS (3) Dementia Assessment/Plan: Discussed pt's condition with ("youngest") daughter;recommend conservative management of cardiac condition. Code(s): F03.90 - UNSPECIFIED DEMENTIA WITHOUT BEHAVIORAL DISTURBANCE (4) Diabetes mellitus Code(s): E11.9 - TYPE 2 DIABETES MELLITUS WITHOUT COMPLICATIONS (5) HTN (hypertension) Code(s): I10 - ESSENTIAL (PRIMARY) HYPERTENSION (6) Elevated troponin Assessment/Plan: No significant change compared to one month ago; CK WNL.. ECHO 2017: normal LVEF; normal wall motion; abnormal diastolic compiiance. EKG: NSR: bifascicular block. Code(s): R74.8 - ABNORMAL LEVELS OF OTHER SERUM ENZYMES (7) Diastolic CHF Assessment/Plan: No JVP. BNP pending. CXR: poor inspiratory effort; suggest repeat. F?u BUN/Cr, electrolytes, daily weight, Is and Os. Code(s): I50.30 - UNSPECIFIED DIASTOLIC (CONGESTIVE) HEART FAILURE
--- NOTE | 2018-09-04 18:45 | CON.ID ---
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 Cardio/Vascular: Yes: CAD, HTN, Hyperlipdemia, [place] Endocrine: Yes: Diabetes Mellitus - Past Surgical History Past Surgical History: Yes: Appendectomy, Stent - Alcohol/Substance Use Hx Alcohol Use: No History of Substance Use: reports: None - Smoking History Smoking history: Former smoker Have you smoked in the past 12 months: No If you are a former smoker, when did you quit?: 40 years ago - Social History Usual Living Arrangement: With Spouse ADL: Family Assistance 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 History of Recent Travel: No Home Medications - Allergies Allergies/Adverse Reactions: Allergies Allergy/AdvReac Type Severity Reaction Status Date / Time hydrochlorothiazide Allergy Intermediate Delirium Verified 08/07/18 15:15 Penicillins Allergy Verified 08/07/18 15:15 - Home Medications Home Medications: Ambulatory Orders Atorvastatin Ca [Lipitor] 20 mg PO DAILY 05/09/12 Clopidogrel Bisulfate [Plavix -] 75 mg PO DAILY 05/09/12 Lisinopril [Prinivil] 10 mg PO DAILY 05/09/12 Insulin Aspart [Novolog Flexpen] 4 - 7 unit SQ QID #5 pen 01/20/17 Furosemide [Lasix] 20 mg PO ASDIR 11/26/17 Insulin Glargine,Hum.rec.anlog [Lantus Solostar PEN -] 15 units SQ HS 11/26/17 Memantine HCl [Namenda Xr] 28 mg PO DAILY 11/26/17 Quetiapine Fumarate [Seroquel -] 25 mg PO HS 11/26/17 traZODone HCL [Trazodone HCl] 100 mg PO HS 11/26/17 Family Disease History - Family Disease History Family History: Unable to Obtain Review of Systems - Review of Systems HENT: reports: No Symptoms Neck: reports: No Symptoms Cardiovascular: denies: Chest Pain Respiratory: reports: Cough Gastrointestinal: denies: Abdominal Pain Physical Exam Vital Signs: Vital Signs Temperature 98.9 F 09/04/18 14:18 Pulse Rate 67 09/04/18 14:18 Respiratory Rate 18 09/04/18 14:18 Blood Pressure 125/60 09/04/18 14:18 O2 Sat by Pulse Oximetry (%) 93 L 09/04/18 14:18 Constitutional: Yes: No Distress, Calm Eyes: Yes: Conjunctiva Clear HENT: Yes: Atraumatic, Normocephalic Neck: Yes: Supple Cardiovascular: Yes: Regular Rate and Rhythm Respiratory: Yes: Diminished Gastrointestinal: Yes: Normal Bowel Sounds, Soft. No: Tenderness, Rebound ...Rectal Exam: Yes: Deferred Extremities: Yes: WNL Edema: No Labs: CBC, BMP 09/04/18 07:10 09/04/18 07:10 blood cultures pending Imaging - Results Chest X-ray: Report Reviewed, Image Reviewed Assessment/Plan hypoxia pneumonia Dementia positive troponins ?CHF penicillin allergy continue vancomycin and azactam d/w cardiology d/w hospitalist earlier
[2018-09-04] MEDS: AZTREONAM 1 GM in DEXTROSE 5%-WATER - 50 ML IVPB SCH (19:46)
[2018-09-04] MEDS: MEMANTINE HCL 10 MG TABLET (FP) PO SCH (21:26)
[2018-09-04] MEDS: ATORVASTATIN CA 20 MG TABLET (FP) PO SCH (21:26)
[2018-09-04] MEDS: QUEtiapine FUMARATE 25 MG TABLET (FP) PO SCH (21:26)
[2018-09-04] MEDS: traZODone HCL 50 MG TABLET (FP) PO SCH (21:26)
[2018-09-04] MEDS: INSULIN (LEVEMIR) 100 UNITS/ML UNITS SQ SCH (21:28)
[2018-09-05] MEDS: AZTREONAM 1 GM in DEXTROSE 5%-WATER - 50 ML IVPB SCH ×3 (02:03→19:05)
[2018-09-05] MEDS ORDERED: INSULIN (NOVOLOG) ASPART 100 UNITS/ML 10ML VIAL ONE ×4 (06:38→21:11)
[2018-09-05] MEDS: INSULIN SLIDING SCALE (NOVOLOG) 1 VIAL SQ SCH ×6 (06:39→21:29)
[2018-09-05] MEDS ORDERED: PT OWN MED DRAWER 7, Y5N ONE ×2 (09:16→21:11)
[2018-09-05] MEDS: HEPARIN NA (PORCINE) 5,000 UNITS/ML 1ML VIAL SQ SCH ×2 (09:37→21:31)
[2018-09-05] MEDS: LISINOPRIL 10 MG TABLET (FP) PO SCH (09:38)
[2018-09-05] MEDS: CLOPIDOGREL BISULFATE 75 MG TABLET (FP) PO SCH (09:38)
[2018-09-05] MEDS: MEMANTINE HCL 10 MG TABLET (FP) PO SCH ×2 (09:38→21:30)
[2018-09-05] MEDS: VANCOMYCIN 1 GRAM (PRE-DOCKED) 1,000 MG/250 ML BAG IVPB SCH (09:39)
--- NOTE | 2018-09-05 17:03 | PN ---
Physical Exam: SUBJECTIVE: Patient seen and examined. Denies acute complaints. OBJECTIVE: Vital Signs 3 Period Temp Pulse Resp BP Sys/Hernadez Pulse Ox Last 24 Hr 98.1 F-99.0 F 58-68 18-20 118-141/49-73 95-98 GENERAL: The patient is awake, alert, in no acute distress. Speech is nonsensical. Appears able to answer yes/no questions. HEAD: Normal with no signs of trauma. EYES: PERRL, extraocular movements intact, sclera anicteric, conjunctiva clear. No ptosis. ENT: Ears normal, nares patent, oropharynx clear without exudates, moist mucous membranes. NECK: Trachea midline, full range of motion, supple. LUNGS: Breath sounds equal, clear to auscultation bilaterally, no wheezes, no crackles, no accessory muscle use. HEART: Regular rate and rhythm, S1, S2 without murmur ABDOMEN: Soft, nontender, nondistended, normoactive bowel sounds, no guarding, no rebound, no hepatosplenomegaly, no masses. EXTREMITIES: 2+ pulses, warm, well-perfused, no edema. PSYCH: Normal mood, normal affect. SKIN: Warm, dry, normal turgor, no rashes or lesions noted Laboratory Results - last 24 hr 3 09/04/18 09/04/18 09/05/18 07:30 21:04 06:27 POC Glucometer 106 154 B-Natriuretic Peptide 280.7 3 09/05/18 09/05/18 11:37 16:18 POC Glucometer 204 164 B-Natriuretic Peptide Active Medications 3 Generic Name Dose Route Start Last Admin Trade Name Álvaroq PRN Reason Stop Dose Admin Atorvastatin Calcium 20 mg 09/04/18 22:00 09/04/18 21:26 Lipitor - PO 20 mg HS [facility] Administration Clopidogrel Bisulfate 75 mg 09/04/18 10:00 09/05/18 09:38 Plavix - PO 75 mg DAILY [facility] Administration Heparin Sodium (Porcine) 5,000 unit 09/04/18 10:00 09/05/18 09:37 Heparin - SQ 5,000 unit BID [facility] Administration Vancomycin HCl 1,000 mg in 250 mls @ 200 mls/hr 09/05/18 10:00 09/05/18 09:39 Vancomycin (Pre-Docked) IVPB 200 mls/hr Q24H [facility] Administration Protocol Aztreonam 1 gm/ Dextrose 50 mls @ 100 mls/hr 09/04/18 18:00 09/05/18 09:33 IVPB 100 mls/hr Q8H-IV [facility] Administration Protocol Insulin Aspart 1 vial 09/04/18 07:00 09/05/18 16:25 Novolog Vial Sliding Scale - SQ 2 unit ACHS [facility] Administration Protocol Insulin Detemir 15 units 09/04/18 22:00 09/04/18 21:28 Levemir Vial SQ 15 units HS [facility] Administration Lisinopril 10 mg 09/04/18 10:00 09/05/18 09:38 Prinivil PO 10 mg DAILY [facility] Administration Memantine 10 mg 09/04/18 22:00 09/05/18 09:38 Namenda - PO 10 mg BID [facility] Administration Non-Formulary Medication 28 mg 09/04/18 10:00 Memantine Hcl [Namenda Xr] PO DAILY [facility] Quetiapine Fumarate 25 mg 09/04/18 22:00 09/04/18 21:26 Seroquel - PO 25 mg HS [facility] Administration Trazodone HCl 100 mg 09/04/18 22:00 09/04/18 21:26 Desyrel - PO 100 mg HS [facility] Administration ASSESSMENT/PLAN: 83 year-old male with a PMH significant for HTN, HLD, CAD s/p [place] s/p stents on Plavix, IDDM, and dementia x 2 years. Recently admitted 08/07 - 08/11/18 for sepsis secondary to pneumonia +/- UTI. Went to SNF and returned home 08/31/18. Daughters brought him to ED for multiple complaints. Pneumonia--HCAP with hypoxia - cont aztreonam and vanc (day 3) - ID consult appreciated - cont oxygen as needed, maintain oxygen sat >90 - vanc level yesterday am 10.2, repeat 9pm tonight and increase to BID if still below 15. troponemia - slightly elevated above prior likely due to demand ischemia, repeat in am to ensure trending down - cardiology consult appreciated HTN/HLD/diastolic CHF/CAD - cont home meds: lisinopril, lipitor, plavix - no s/s fluid overload, daily weights DM - cont home levemir - BGM qid with novolog ss DVT PPX - heparin SC dementia - reorientation as necessary - cont namenda, quetiapine, seroquel FEN - po intake adequate - BMP in am - diabetic low sodium diet as tolerated Dispo: full code. Continues to require inpatient care. likely will need STR placement. Visit type - Emergency Visit Emergency Visit: Yes ED Registration Date: 09/03/18 Care time: The patient presented to the Emergency Department on the above date and was hospitalized for further evaluation of their emergent condition. - New Patient This patient is new to me today: Yes Date on this admission: 09/05/18 - Critical Care Critical Care patient: No
[2018-09-05] MEDS: INSULIN (LEVEMIR) 100 UNITS/ML UNITS SQ SCH (21:30)
[2018-09-05] MEDS: traZODone HCL 50 MG TABLET (FP) PO SCH (21:30)
[2018-09-05] MEDS: QUEtiapine FUMARATE 25 MG TABLET (FP) PO SCH (21:30)
[2018-09-05] MEDS: ATORVASTATIN CA 20 MG TABLET (FP) PO SCH (21:31)
[2018-09-06] MEDS: AZTREONAM 1 GM in DEXTROSE 5%-WATER - 50 ML IVPB SCH ×2 (01:40→10:06)
[2018-09-06] MEDS: INSULIN SLIDING SCALE (NOVOLOG) 1 VIAL SQ SCH ×2 (06:37→12:37)
[2018-09-06 08:30] LABS: BASO % 0.5 % (0-2.0); EOS % 2.9 % (0-4.5); HEMOGLOBIN 10.7 GM/dl (11.7-16.9); LYMPH % 14.8 % (8-40); MCH 28.3 pg (25.7-33.7); MCHC 31.4 g/dl (32.0-35.9); MEAN CELL VOLUME 90.1 fl (80-96); MEAN PLT VOLUME 8.9 fl (7.5-11.1); MONO % 9.8 % (3.8-10.2); PLATELET COUNT 190 K/MM3 (134-434); RBC 3.77 M/mm3 (4.00-5.60); RDW 14.5 % (11.9-15.9); WHITE BLOOD COUNT 5.8 K/mm3 (4.0-10.8)
[2018-09-06 08:49] LABS: ANION GAP 9 MMOL/L (8-16); BLOOD UREA NITROGEN 17 mg/dl (7-18); CALCIUM 9.3 mg/dl (8.4-10.2); CHLORIDE 107 mmol/L (98-107); CO2 23 mmol/L (22-28); GLUCOSE,RANDOM 100 mg/dl (74-106); MAGNESIUM 1.9 mg/dL (1.8-2.4); PHOSPHOROUS 3.2 mg/dl (2.5-4.6); POTASSIUM 4.3 mmol/L (3.5-5.1); SODIUM 139 mmol/L (136-145)
--- NOTE | 2018-09-06 09:22 | CONSULT ---
Admitting History and Physical - Primary Care Physician PCP: Jennifer Redman - Admission History of Present Illness: Per EMR: 83 year-old male with a PMH significant for HTN, HLD, CAD s/p [place] s/p stents on Plavix, IDDM, and dementia x 2 years. Recently admitted 08/07 - 08/11/18 for sepsis secondary to pneumonia +/- UTI. Went to SNF and returned home 08/31/18. Daughters brought him to ED for acute cough/hypoxia. dx-Pneumonia--HCAP with hypoxia This is my first consult with this pt. 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 History of Recent Travel: No History - Admission Reason For Visit: AMS, HYPOXIA - Diagnostics X-ray: Report Reviewed - General Mental Status: Forgetful, Vague, Confused, Flat Affect, Lethargic Attention: Distractible, Severe Impairment Ability to Follow Directions: Fair Head/Neck Control: Fair - Hearing Hearing: Normal Hearing Aide: No Speech Evaluation - Communication Primary Language: ESTONIAN Communication: Yes: Simple Responses - Speech Production Intelligibility: Yes: Mildly Impaired, Moderately Impaired - Speech Characteristics Voice Loudness: Normal Voice Pitch: Yes: Normal Voice Phonatory-based Quality: Yes: Normal Speech Clarity: < 75% Nasal Resonance: Normal Articulation: Yes: Imprecise (lethargic. Baseline?) Rate of Speech: Too Slow - Language/Verbal Expression Able to Respond to Simple Queries: Yes: Moderately Impaired - Swallow Evaluation/Bedside Assessment Current Nutritional Intake: Regular, Thin Liquids, Other (Pt confused, lethargic but arousable briefly. Scrambled egg noted on tongue and right buccal cavity. Pt was unable to expectorate eggs, bite reflex with spoon placed to remove. Eventually able to remove with spoon. Staff educated on need for mouth care after PO intake to remove oral residue.) Dentition: Yes: Adequate Facial Symmetry at Rest: Symmetrical Jaw Position: Open at Rest Against Resistance Opening: Weak Against Resistance Closing: Weak Pucker Lips: Weak Smile: Weak Lingual Movement: Symmetric, Reduced Protrusion Lingual Speed of Movement: Reduced Lingual Movement Strgth Against Opposition: Reduced Bite Reflex: Present Laryngeal Elevation: Impaired Laryngeal Movement: Reduced Excursion, Labored,delay initiation, Reduced Velocity Rate of Intake: Slow/Holding Bolus Size: Small Labial Seal: Impaired Bilaterally Chewing: Impaired Oral Prep Time: Increased A-P Transit: Impaired Pocketing: Present Bilaterally Timing of Swallow: Delayed (absent at times) Coughing/Throat Clear: No Recommendations - Speech Evaluation, Impression/Plan Impression: Risk of choking on solids with oral holding/retention. Dementia with poor awareness. Swallow quite delay\ed, reduced in rate of swallow onset, reduced VOM and ROM of larynx. Risk of aspiration, malnutrition. This may be pt 's baseline or dysphagia may be exacerbated by infection/hospitalization although WBC ok.Pt reported to accept food better later in the day but limited appetite. Likely secondary to oral-pharyngeal dysphagia. Also,lethargy/ dysphagia may be increased sec to a specific medication or combination. - Disposition Discharge to: [facility] Facility, To be Determined - Dysphagia Impressions/Plan Swallowing Skills: Impaired Dysphagia Impressions: Moderate Impairment, Risk of Aspiration *Silent aspiration: cannot be R/O at bedside Dysphagia Treatment Plan: Small Bites, Chin Tuck/Down, Clear Pocket Food ( during and after meals.), Trial Feedings, 1/2 tsp. at a time, Elevate HOB during feed, Other (Feed onbly when fully alert.) - Recommendations Diet Consistency: Dysphagia Pureed Medication Administration: Crushed with applesauce Liquids: [place] Thick Supplement: Magic Cup, Ensure Pudding, Other (Ensure compact)
[2018-09-06] MEDS ORDERED: PT OWN MED DRAWER 7, Y5N ONE (09:59)
[2018-09-06] MEDS: HEPARIN NA (PORCINE) 5,000 UNITS/ML 1ML VIAL SQ SCH (10:06)
[2018-09-06] MEDS: CLOPIDOGREL BISULFATE 75 MG TABLET (FP) PO SCH (10:06)
[2018-09-06] MEDS: MEMANTINE HCL 10 MG TABLET (FP) PO SCH (10:06)
[2018-09-06] MEDS: LISINOPRIL 10 MG TABLET (FP) PO SCH (10:06)
[2018-09-06] MEDS: VANCOMYCIN 1 GRAM (PRE-DOCKED) 1,000 MG/250 ML BAG IVPB SCH (10:07)
--- NOTE | 2018-09-06 10:23 | PN ---
Progress Note, Physician History of Present Illness: Awake but confused No acute distress Afebrile Breathing non-labored No cough noted - Current Medication List Current Medications: Active Medications Atorvastatin Calcium (Lipitor -) 20 mg PO HS [facility] Last Admin: 09/05/18 21:31 Dose: 20 mg Clopidogrel Bisulfate (Plavix -) 75 mg PO DAILY [facility] Last Admin: 09/06/18 10:06 Dose: 75 mg Heparin Sodium (Porcine) (Heparin -) 5,000 unit SQ BID [facility] Last Admin: 09/06/18 10:06 Dose: 5,000 unit Vancomycin HCl (Vancomycin (Pre-Docked)) 1,000 mg in 250 mls @ 200 mls/hr IVPB Q24H [facility]; Protocol Last Admin: 09/06/18 10:07 Dose: 200 mls/hr Aztreonam 1 gm/ Dextrose 50 mls @ 100 mls/hr IVPB Q8H-IV [facility]; Protocol Last Admin: 09/06/18 10:06 Dose: 100 mls/hr Insulin Aspart (Novolog Vial Sliding Scale -) 1 vial SQ [facility]; Protocol Last Admin: 09/06/18 06:37 Dose: Not Given Insulin Detemir (Levemir Vial) 15 units SQ HS [facility] Last Admin: 09/05/18 21:30 Dose: 15 units Lisinopril (Prinivil) 10 mg PO DAILY [facility] Last Admin: 09/06/18 10:06 Dose: 10 mg Memantine (Namenda -) 10 mg PO BID [facility] Last Admin: 09/06/18 10:06 Dose: 10 mg Non-Formulary Medication (Memantine Hcl [Namenda Xr]) 28 mg PO DAILY [facility] Quetiapine Fumarate (Seroquel -) 25 mg PO HS [facility] Last Admin: 09/05/18 21:30 Dose: 25 mg Trazodone HCl (Desyrel -) 100 mg PO [facility] Last Admin: 09/05/18 21:30 Dose: 100 mg - Objective Vital Signs: Vital Signs Temperature 97.6 F 09/06/18 06:00 Pulse Rate 68 09/06/18 06:00 Respiratory Rate 18 09/06/18 06:00 Blood Pressure 124/62 09/06/18 06:00 O2 Sat by Pulse Oximetry (%) 100 09/06/18 08:45 Constitutional: Yes: No Distress Cardiovascular: Yes: Regular Rate and Rhythm, S1, S2 Respiratory: Yes: Diminished Gastrointestinal: Yes: Normal Bowel Sounds, Soft. No: Tenderness Labs: CBC, BMP 09/06/18 07:30 09/06/18 07:30 Assessment/Plan Pneumonia ? CHF PCN allergy OBS Continue vancomycin/ aztreonam
[2018-09-06 12:06] VITALS: BP 109/55; PULSE 64
--- NOTE | 2018-09-06 12:31 | DS ---
Physical Exam: SUBJECTIVE: Patient seen and examined OBJECTIVE: Vital Signs Period Temp Pulse Resp BP Sys/Hernadez Pulse Ox Last 24 Hr 97.6 F-99.0 F 58-68 18-18 109-124/52-62 95-100 PHYSICAL EXAM GENERAL: The patient is awake. Recognized daughter, stated her name and that she is a "non categorical preschool teacher." Responds to voice. Smiles. In no apparent distress, no signs of pain. LUNGS: Breath sounds equal, clear to auscultation bilaterally, no wheezes, no crackles, no accessory muscle use. HEART: Regular rate and rhythm, S1, S2 ABDOMEN: Soft, nontender, nondistended EXTREMITIES: 2+ pulses, warm, well-perfused, no edema, no calf tenderness SKIN: warm, dry, normal turgor, no rashes, no pressure ulcers seen LABS Laboratory Results - last 24 hr 09/05/18 09/05/18 09/05/18 16:18 20:47 21:00 WBC RBC Hgb Hct MCV MCH MCHC RDW Plt Count MPV Absolute Neuts (auto) Neutrophils % Lymphocytes % Monocytes % Eosinophils % Basophils % Sodium Potassium Chloride Carbon Dioxide Anion Gap BUN Creatinine Creat Clearance w eGFR POC Glucometer 164 175 Random Glucose Calcium Phosphorus Magnesium Troponin I Random Vancomycin 5.12 09/06/18 09/06/18 09/06/18 06:30 07:30 07:30 WBC 5.8 RBC 3.77 L Hgb 10.7 L Hct 34.0 L MCV 90.1 MCH 28.3 MCHC 31.4 L RDW 14.5 Plt Count 190 MPV 8.9 Absolute Neuts (auto) 4.1 Neutrophils % 72.0 Lymphocytes % 14.8 D Monocytes % 9.8 Eosinophils % 2.9 Basophils % 0.5 Sodium 139 Potassium 4.3 Chloride 107 Carbon Dioxide 23 Anion Gap 9 BUN 17 Creatinine 1.0 Creat Clearance w eGFR > 60 POC Glucometer 104 Random Glucose 100 D Calcium 9.3 Phosphorus 3.2 Magnesium 1.9 Troponin I Random Vancomycin 09/06/18 09/06/18 07:30 11:50 WBC RBC Hgb Hct MCV MCH MCHC RDW Plt Count MPV Absolute Neuts (auto) Neutrophils % Lymphocytes % Monocytes % Eosinophils % Basophils % Sodium Potassium Chloride Carbon Dioxide Anion Gap BUN Creatinine Creat Clearance w eGFR POC Glucometer 200 Random Glucose Calcium Phosphorus Magnesium Troponin I 0.16 H Random Vancomycin HOSPITAL COURSE: Date of Admission:09/03/18 Date of Discharge: 09/06/18 83 year-old male with a PMH significant for HTN, HLD, CAD s/p [place] s/p stents on Plavix, IDDM, and dementia x 2 years. Recently admitted 08/07 - 08/11/18 for sepsis secondary to pneumonia +/- UTI. Went to SNF and returned home 08/31/18. Daughters brought him to ED for multiple complaints. Pneumonia --was treated from 08/07-08/11 for CAP with aztreonam and Vanc and was discharged on PO levofloxacin for an additional 7 days --then spent 20 days in SNF --single recorded temp 100.6 on admission, afebrile for remainder of hospital stay; no leukocytosis, and CXR was essentially without change from previous admission; satting 100% on room air --treated aztreonam and vanc x 3 days --discharge on levofloxacin x 5 days Hypertension --continue Lisinopril Hyperlipidemia --continue Lipitor Coronary artery disease s/p stents --continue Plavix, statin IDDM --Levemir 15U qhs --Novolog sliding scale coverage Dementia --continue Namenda --continue Trazadone, Seroquel at night; monitor for signs of oversedation FEN Fluids: PO intake adequate Electrolytes: replete as indicated Nutrition: diabetic, low Na DVT prophylaxis: subq heparin Physical therapy Dispo: continues to require inpatient care. Need to discuss goals of care with daughters. Mother brought to ED today. Full Code. Discharge Summary Reason For Visit: AMS, HYPOXIA Current Active Problems Acute hypoxemic respiratory failure (Acute) Altered mental status (Acute) Diastolic CHF (Acute) Elevated troponin (Acute) Fever (Acute) HCAP (healthcare-associated pneumonia) (Acute) Interstitial lung disease (Acute) Pneumonia (Acute) Condition: Stable - Instructions Diet, Activity, Other Instructions: A prescription has been sent to the patient's pharmacy for an antibiotic. Take this medication as directed and be sure to finish all the medication. It is recommended you call Dr. Zimmerman within one week of the patient's discharge to discuss his medications. Referrals: Kannan Zimmerman MD [Primary Care Provider] - 2 Weeks Disposition: HOME - Home Medications Comprehensive Discharge Medication List: Ambulatory Orders Atorvastatin Ca [Lipitor] 20 mg PO DAILY 05/09/12 Clopidogrel Bisulfate [Plavix -] 75 mg PO DAILY 05/09/12 Lisinopril [Prinivil] 10 mg PO DAILY 05/09/12 Insulin Aspart [Novolog Flexpen] 4 - 7 unit SQ QID #5 pen 01/20/17 Furosemide [Lasix] 20 mg PO ASDIR 11/26/17 Insulin Glargine,Hum.rec.anlog [Lantus Solostar PEN -] 15 units SQ HS 11/26/17 Memantine HCl [Namenda Xr] 28 mg PO DAILY 11/26/17 Quetiapine Fumarate [Seroquel -] 25 mg PO HS 11/26/17 traZODone HCL [Trazodone HCl] 100 mg PO HS 11/26/17
[2018-09-06] MEDS ORDERED: INSULIN (NOVOLOG) ASPART 100 UNITS/ML 10ML VIAL ONE (12:32)
--- NOTE | 2018-09-06 12:57 | PN ---
Progress Note (short form) - Note Progress Note: PULMONARY DAY#3 IV ABS/DAUGHTER PRESENT DEMENTIA BASELINE 98.8 RECTAL PALE/ANICTERIC SCATTERED BIBASILAR CRACKLES S1S2 BS+ NO EDEMA MICRO/NOTES/IMAGES/MEDS REVIEWED IMP ACUTE HYPOXEMIC RESPIRATORY FAILURE PNEUMONIA INTERSTITIAL LUNG DISEASE ALTERED MENTAL STATUS ASHD S/P UT,S/P STENTS DEMENTIA +TROPONIN HTN HLD DM HIGH ASPIRATION RISK PLAN IV ABX INHALED BRONCHODILATORS CULTURES TREND TROPONINS F/U CHEST X-RAYS WOULD CONTINUE INPATIENT TREATMENT UNTIL CLEARED BY ID PATIENT LIVES WITH 90 YEAR OLD WHO IS PRESENTLY IN THE HOSPITAL. DAUGHTER STATES THEY HAVE LIVE IN AIDE Singh YOUNG MD
[2018-09-06 12:58] VITALS: TEMP 98.8
--- NOTE | 2018-09-06 14:59 | PN ---
Progress Note, Physician Chief Complaint: Pt awake; disoriented x 3. History of Present Illness: The patient is an 83 year old white man with a past medical history of [place] (10 years ago; s/p stents; on plavix), insulin dependent diabetes, HLD, HTN, and dementia here today for evaluation of altered mental status. Due to the patient s dementia, he was not able to give a history so information came from his daughters. As per daughters, patient was seen in this ER on 08/07/18 and was admitted for UTI, pneumonia, and sepsis. After a brief stay, patient was transferred to short term rehab and returned home on 08/31/18. Patients daughters noticed that the patient would become easily confused and would refuse to get out of bed since his admission in July. They also noticed a violent cough since last night and constipation and loss of appetite since 08/31. Today the patient was found by daughters to be more confused, having a pulse oximetry at 84% tonight, and also noted to be tachycardic during pulse oximetry. Pt's daughter says that, over the past several months, pt has deteriorated (can no longer walk on his own; speaks nonsensically). 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 - Current Medication List Current Medications: Active Medications Atorvastatin Calcium (Lipitor -) 20 mg PO HS [facility] Last Admin: 09/05/18 21:31 Dose: 20 mg Clopidogrel Bisulfate (Plavix -) 75 mg PO DAILY [facility] Last Admin: 09/06/18 10:06 Dose: 75 mg Heparin Sodium (Porcine) (Heparin -) 5,000 unit SQ BID [facility] Last Admin: 09/06/18 10:06 Dose: 5,000 unit Vancomycin HCl (Vancomycin (Pre-Docked)) 1,000 mg in 250 mls @ 200 mls/hr IVPB Q24H [facility]; Protocol Last Admin: 09/06/18 10:07 Dose: 200 mls/hr Aztreonam 1 gm/ Dextrose 50 mls @ 100 mls/hr IVPB Q8H-IV [facility]; Protocol Last Admin: 09/06/18 10:06 Dose: 100 mls/hr Insulin Aspart (Novolog Vial Sliding Scale -) 1 vial SQ [facility]; Protocol Last Admin: 09/06/18 12:37 Dose: 2 unit Insulin Detemir (Levemir Vial) 15 units SQ HS [facility] Last Admin: 09/05/18 21:30 Dose: 15 units Lisinopril (Prinivil) 10 mg PO DAILY [facility] Last Admin: 09/06/18 10:06 Dose: 10 mg Memantine (Namenda -) 10 mg PO BID [facility] Last Admin: 09/06/18 10:06 Dose: 10 mg Non-Formulary Medication (Memantine Hcl [Namenda Xr]) 28 mg PO DAILY [facility] Quetiapine Fumarate (Seroquel -) 25 mg PO [facility] Last Admin: 09/05/18 21:30 Dose: 25 mg Trazodone HCl (Desyrel -) 100 mg PO [facility] Last Admin: 09/05/18 21:30 Dose: 100 mg - Objective Vital Signs: Vital Signs Temperature 98.8 F 09/06/18 12:57 Pulse Rate 64 09/06/18 10:00 Respiratory Rate 18 09/06/18 10:00 Blood Pressure 109/55 L 09/06/18 10:00 O2 Sat by Pulse Oximetry (%) 100 09/06/18 08:45 Labs: CBC, BMP 09/06/18 07:30 09/06/18 07:30 Problem List - Problems (1) Fever Code(s): R50.9 - FEVER, UNSPECIFIED Qualifiers: Fever type: unspecified Qualified Code(s): R50.9 - Fever, unspecified (2) CAD (coronary artery disease) Code(s): I25.10 - ATHSCL HEART DISEASE OF [place] CORONARY ARTERY W/O ANG PCTRS (3) Dementia Assessment/Plan: Discussed pt's condition with ("youngest") daughter;recommend conservative management of cardiac condition. Code(s): F03.90 - UNSPECIFIED DEMENTIA WITHOUT BEHAVIORAL DISTURBANCE (4) Diabetes mellitus Code(s): E11.9 - TYPE 2 DIABETES MELLITUS WITHOUT COMPLICATIONS (5) HTN (hypertension) Code(s): I10 - ESSENTIAL (PRIMARY) HYPERTENSION (6) Elevated troponin Assessment/Plan: No significant change compared to one month ago (0.16 on latest level); CK WNL ECHO 2017: normal LVEF; normal wall motion; abnormal diastolic compiiance. EKG: NSR: bifascicular block. Would recommmend conservative management (ASA 81 mg daily; nitrates prn for chest pain; continue statin). Code(s): R74.8 - ABNORMAL LEVELS OF OTHER SERUM ENZYMES (7) Diastolic CHF Code(s): I50.30 - UNSPECIFIED DIASTOLIC (CONGESTIVE) HEART FAILURE
== END 2018-09-06 15:18 | disposition home or self-care (01) | DRG 193 ==
LOC: FER 20:53 → SUPCPDRO 20:53 → FM/S 23:43
PROVIDERS: ADMIT Internal Medicine; ATTEND Nurse Practitioner Acute Care
DX: J18.9 Pneumonia, unspecified organism (principal); G93.41 Metabolic encephalopathy; J96.01 Acute respiratory failure with hypoxia; I50.30 Unspecified diastolic (congestive) heart failure; N39.0 Urinary tract infection, site not specified; R41.82 Altered mental status, unspecified; F03.90 Unspecified dementia, unspecified severity, without behavioral disturbance, psychotic disturbance, mood disturbance, and anxiety; I25.10 Atherosclerotic heart disease of native coronary artery without angina pectoris; Z98.61 Coronary angioplasty status; I11.0 Hypertensive heart disease with heart failure; E78.5 Hyperlipidemia, unspecified; E11.9 Type 2 diabetes mellitus without complications
CPT/HCPCS: 36415; 71045-TC-FY; 80048; 80053; 81003; 81015; 82550; 82962; 83605; 83735; 83880; 84100; 84484; 85025; 87040; 87086; 93005; 97116-GP; 97161-GP; 99284-25; G0480; J0131; J1644

== ENCOUNTER 2019-05-13 16:36 | Inpatient (IN) | payer OTHER, BC ==
--- NOTE | 2019-05-13 16:46 | PDOC ---
History of Present Illness - General Chief Complaint: Weakness Stated Complaint: LETHARGIC SINCE YESTERDAy slurred speech Time Seen by Provider: 05/13/19 16:46 Past History - Past Medical History Allergies/Adverse Reactions: Allergies Allergy/AdvReac Type Severity Reaction Status Date / Time hydrochlorothiazide Allergy Intermediate Delirium Verified 05/13/19 16:40 Penicillins Allergy Intermediate Verified 05/13/19 16:40 Home Medications: Ambulatory Orders Atorvastatin Ca [Lipitor] 20 mg PO HS 05/13/19 Clopidogrel Bisulfate [Plavix] 75 mg PO DAILY 05/13/19 Furosemide [Lasix] 20 mg PO ASDIR 05/13/19 Insulin (Novolog) [Novolog] 0 units SQ ASDIR 05/13/19 Insulin Glargine,Hum.rec.anlog [Lantus] 14 unit SQ HS 05/13/19 Latanoprost 0.005% Eye Drops [Xalatan 0.005% Eye Drops -] 1 drop OU HS 05/13/19 Lisinopril [Prinivil] 10 mg PO DAILY 05/13/19 Memantine HCl [Memantine HCl ER] 28 mg PO DAILY 05/13/19 levETIRAcetam [Keppra -] 500 mg PO BID 05/13/19 Anemia: No Asthma: No Cancer: No Cardiac Disorders: Yes (stents inserted 2009) CVA: No COPD: No CHF: No Dementia: Yes Diabetes: Yes (x10 yrs) GI Disorders: No Disorders: No HTN: Yes Hypercholesterolemia: Yes Liver Disease: No Seizures: No Thyroid Disease: No - Surgical History Abdominal Surgery: Yes (Colon resection as an infant) Appendectomy: Yes Cardiac Surgery: No Cholecystectomy: No Lung Surgery: No Neurologic Surgery: No Orthopedic Surgery: No - Suicide/Smoking/Psychosocial Hx Smoking History: Former smoker Have you smoked in the past 12 months: No If you are a former smoker, when did you quit?: 40 years ago Hx Alcohol Use: No Drug/Substance Use Hx: No Substance Use Type: None Hx Substance Use Treatment: No ED Treatment Course - LABORATORY CBC & Chemistry Diagram: 05/14/19 06:50 05/14/19 06:50 Medical Decision Making - Medical Decision Making HPI: 84yo M with PMH of HTN, HLD, DM, CAD s/p 2 stents, BPH, Seizure (one seizure after a fall and is compliant on Keppra), Alzheimer's dementia brought in by his aide and daughters for evaluation of two episodes of less responsiveness. His twenty-four hour a day aide reports that yesterday patient had a period of less responsiveness in that he was slow to answer questions, had slurred speech , exhibited bulging eyes, and his eyes were looking in different directions. The episode lasted about fifteen minutes and resolved on its own. The same type of episode occurred again today around 1pm. At history-taking about four hours later, the aide and daughters remark that patient appears to have returned to his baseline. Patient denies urinary symptoms, though daughter states he has a history of urinary retention. He has had normal po intake. No fevers, chills, chest pain, or shortness of breath. ROS: Constitutional: no fever, no chills HEENT: no throat pain, no vision changes Cardiovascular: no chest pain, no palpitations Respiratory: no cough, no shortness of breath Gastrointestinal: no abdominal pain, no nausea Genitourinary: no dysuria, no hematuria Musculoskeletal: no myalgia, no arthralgia Skin: no rash, no itching Neurologic: no headache, no weakness PE: General: Awake, alert, and oriented x 2 (to person and place, but not month/year ), in no acute distress Head: No signs of trauma Eyes: EOMI, sclera anicteric, eyes with disconjugate gaze ENT: Dry mucus membranes Neck: Normal ROM, supple Lungs: Lungs clear, Normal breath sounds Cardio: Regular rhythm, S1 and S2 present Abdomen: Soft, nontender. No guarding, no rebound, no masses Extremities: Normal range of motion, Distal pulses present SKIN: Warm, Dry, normal turgor Neurologic: Cranial nerves II through XII intact. Normal speech, sensation, strength, coordination. Deferred gait exam. ED Course/MDM: DDX including but not limited to UTI, PNA, electrolyte abnormality, anemia, CVA/ TIA, seizure 500cc fluids for gentle hydration given patient's age Labs, EKG, CXR, CT Head 05/13/19 16:46 EKG, rate 64, QTc 449, sinus rhythm with PACs, RBBB, no change from previous EKG in 08/2018 Triage note appreciated. Patient with normal non-slurred speech which is baseline per daughter at the bedside. 05/13/19 17:23 Call from lab, Tpn is elevated, 1.65 Patient does not have a casing mixer. We will page the on-call casing mixer. 05/13/19 18:09 Patient does not follow with a casing mixer. Discussed case with Dr. Adan. He recommends transfer to [facility]. He would like 25mg short-acting lopressor given. The patient to be admitted to a bed with cardiac monitoring. We will admit the patient 05/13/19 18:17 CT Head without acute abnormality: "CT brain without contrast Head trauma with fall No acute calvarial fracture. Normal region of orbits including maxillofacial region with no acute fracture. Midline ventricular system with no shift or hydrocephalus. Widening of the sylvian fissure and cerebral cortical sulci consistent with cerebral parenchymal volume loss. No acute subdural or subarachnoid hemorrhage No CT evidence of mass, hemorrhage or acute vascular territory infarction. No sulcal effacement or increased intracranial pressure, no signs of downward herniation Impression: No acute intracranial hemorrhage or acute infarction, no acute changes in the brain identified. " CBC WBC 7.4 K/mm3 (4.0-10.8) 05/13/19 17:30 RBC 4.35 M/mm3 (4.00-5.60) 05/13/19 17:30 Hgb 13.0 GM/dl (11.7-16.9) 05/13/19 17:30 Hct 39.5 % (35.4-49) D 05/13/19 17:30 MCV 90.7 fl (80-96) 05/13/19 17:30 MCH 29.8 pg (25.7-33.7) 05/13/19 17:30 MCHC 32.9 g/dl (32.0-35.9) 05/13/19 17:30 RDW 13.7 % (11.9-15.9) 05/13/19 17:30 Plt Count 227 K/MM3 (134-434) 05/13/19 17:30 MPV 8.8 fl (7.5-11.1) 05/13/19 17:30 Absolute Neuts (auto) 5.8 K/mm3 05/13/19 17:30 Neutrophils % 76.8 % (42.8-82.8) 05/13/19 17:30 Lymphocytes % 12.7 % (8-40) 05/13/19 17:30 Monocytes % 8.7 % (3.8-10.2) 05/13/19 17:30 Eosinophils % 1.3 % (0-4.5) 05/13/19 17:30 Basophils % 0.5 % (0-2.0) 05/13/19 17:30 No leukocytosis CMP Sodium 141 mmol/L (136-145) 05/13/19 17:30 Potassium 4.9 mmol/L (3.5-5.1) 05/13/19 17:30 Chloride 104 mmol/L (98-107) 05/13/19 17:30 Carbon Dioxide 28 mmol/L (21-32) 05/13/19 17:30 Anion Gap 9 MMOL/L (8-16) 05/13/19 17:30 BUN 45.0 mg/dl (7-18) H 05/13/19 17:30 Creatinine 1.1 mg/dl (0.55-1.3) 05/13/19 17:30 Est GFR (CKD-EPI)AfAm 71.07 05/13/19 17:30 Est GFR (CKD-EPI)NonAf 61.32 05/13/19 17:30 Random Glucose 186 mg/dl (74-106) H 05/13/19 17:30 Calcium 9.0 mg/dl (8.5-10) 05/13/19 17:30 Magnesium 2.1 mg/dL (1.8-2.4) 05/13/19 17:30 Total Bilirubin 0.6 mg/dl (0.2-1) 05/13/19 17:30 AST 24 U/L (15-37) 05/13/19 17:30 ALT 21 U/L (13-61) 05/13/19 17:30 Alkaline Phosphatase 81 U/L (45-117) 05/13/19 17:30 Troponin I 1.65 ng/ml (0.00-0.05) H* 05/13/19 17:40 Total Protein 6.8 g/dl (6.4-8.2) 05/13/19 17:30 Albumin 3.7 g/dl (3.4-5.0) 05/13/19 17:30 Electrolytes unremarkable Troponin elevated 05/13/19 18:26 Discussed case with TIME STUDY ENGINEER Myranda who accepted patient for telemetry admission under Dr. Spence. 05/13/19 18:35 Patient with possible pneumonia on CXR. Coverage with vancomycin/aztreonam for community-acquired pneumonia. Patient is penicillin allergic and so we cannot give rocephin. 05/13/19 18:52 BNP added on. Lab notified. 05/13/19 18:55 *DC/Admit/Observation/Transfer Diagnosis at time of Disposition: Elevated troponin Altered mental status Qualifiers: Altered mental status type: unspecified Qualified Code(s): R41.82 - Altered mental status, unspecified - Discharge Dispostion Condition at time of disposition: Guarded Decision to Admit order: Yes - Referrals - Patient Instructions - Post Discharge Activity
[2019-05-13] MEDS ORDERED: SODIUM CHLORIDE 500 ML IV STA (17:22)
[2019-05-13 17:45] LABS: BASO % 0.5 % (0-2.0); EOS % 1.3 % (0-4.5); HEMATOCRIT 39.5 % (35.4-49); LYMPH % 12.7 % (8-40); MCH 29.8 pg (25.7-33.7); MCHC 32.9 g/dl (32.0-35.9); MEAN CELL VOLUME 90.7 fl (80-96); MEAN PLT VOLUME 8.8 fl (7.5-11.1); MONO % 8.7 % (3.8-10.2); NEUT % 76.8 % (42.8-82.8); PLATELET COUNT 227 K/MM3 (134-434); RBC 4.35 M/mm3 (4.00-5.60); RDW 13.7 % (11.9-15.9); WHITE BLOOD COUNT 7.4 K/mm3 (4.0-10.8)
[2019-05-13 17:50] LABS: INR 1.16 (0.82-1.09)
[2019-05-13 17:57] LABS: ALBUMIN 3.7 g/dl (3.4-5.0); BILIRUBIN,TOTAL 0.6 mg/dl (0.2-1); CREATININE 1.1 mg/dl (0.55-1.3); MAGNESIUM 2.1 mg/dL (1.8-2.4); POTASSIUM 4.9 mmol/L (3.5-5.1); TOT PROT 6.8 g/dl (6.4-8.2)
[2019-05-13] MEDS ORDERED: ASPIRIN 81 MG CHEWABLE TABLETS PO ONE (18:13)
[2019-05-13] MEDS ORDERED: ASPIRIN 81 MG CHEWABLE TABLETS ONE (18:14)
[2019-05-13] MEDS ORDERED: METOPROLOL TARTRATE 25 MG TABLET (FP) PO ONE (18:18)
--- NOTE | 2019-05-13 18:19 | CON.CARD ---
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 Cardio/Vascular: Yes: CAD, HTN, Hyperlipdemia, [place] Endocrine: Yes: Diabetes Mellitus - Past Surgical History Past Surgical History: Yes: Appendectomy, Stent - Alcohol/Substance Use Hx Alcohol Use: No History of Substance Use: reports: None - Smoking History Smoking history: Former smoker Have you smoked in the past 12 months: No If you are a former smoker, when did you quit?: 40 years ago - Social History Usual Living Arrangement: With Spouse ADL: Family Assistance 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 History of Recent Travel: No Home Medications - Allergies Allergies/Adverse Reactions: Allergies Allergy/AdvReac Type Severity Reaction Status Date / Time hydrochlorothiazide Allergy Intermediate Delirium Verified 05/13/19 16:40 Penicillins Allergy Intermediate Verified 05/13/19 16:40 - Home Medications Home Medications: Ambulatory Orders Atorvastatin Ca [Lipitor] 20 mg PO HS 05/13/19 Clopidogrel Bisulfate [Plavix] 75 mg PO DAILY 05/13/19 Furosemide [Lasix] 20 mg PO ASDIR 05/13/19 Insulin (Novolog) [Novolog] 0 units SQ ASDIR 05/13/19 Insulin Glargine,Hum.rec.anlog [Lantus] 14 unit SQ 05/13/19 Lisinopril [Prinivil] 10 mg PO DAILY 05/13/19 Memantine HCl [Memantine HCl ER] 28 mg PO DAILY 05/13/19 RX: Latanoprost 0.005% Eye Drops [Xalatan 0.005% Eye Drops -] 1 drop OU 05/13 levETIRAcetam [Keppra -] 500 mg PO BID 05/13/19 Review of Systems - Review of Systems Constitutional: reports: No Symptoms Eyes: reports: No Symptoms HENT: reports: No Symptoms Neck: reports: No Symptoms Cardiovascular: reports: No Symptoms Gastrointestinal: reports: No Symptoms Genitourinary: reports: No Symptoms Breasts: reports: No Symptoms Reported Musculoskeletal: reports: No Symptoms Integumentary: reports: No Symptoms Neurological: reports: Change in LOC, Change in Speech, Confusion Endocrine: reports: No Symptoms Hematology/Lymphatic: reports: No Symptoms Psychiatric: reports: No Symptoms Vital Signs: Vital Signs Temperature 99.2 F 05/13/19 17:37 Pulse Rate 71 05/13/19 16:39 Respiratory Rate 18 05/13/19 16:39 Blood Pressure 131/74 05/13/19 16:39 O2 Sat by Pulse Oximetry (%) 98 05/13/19 16:39 Constitutional: Yes: Well Nourished, No Distress, Calm Eyes: Yes: WNL, Conjunctiva Clear, EOM Intact HENT: Yes: WNL, Atraumatic, Normocephalic Neck: Yes: WNL, Supple, Trachea Midline Respiratory: Yes: WNL, Regular, CTA Bilaterally Gastrointestinal: Yes: WNL, Normal Bowel Sounds Renal/: Yes: WNL Cardiovascular: Yes: WNL, Regular Rate and Rhythm Musculoskeletal: Yes: WNL Extremities: Yes: WNL Integumentary: Yes: WNL Neurological: Yes: WNL, Alert, Oriented ...Motor Strength: WNL Psychiatric: Yes: WNL, Alert, Oriented - Other Data Labs, Other Data: CBC, BMP 05/13/19 17:30 05/13/19 17:30 INR, PTT INR 1.16 (0.82-1.09) 05/13/19 17:30 Troponin, BNP 05/13/19 17:40 Troponin I 1.65 H* Troponin, BNP 05/13/19 17:40 Troponin I 1.65 H* Imaging - Results Chest X-ray: Image Reviewed (interstitial and alveolar changes) EKG: Image Reviewed ( RBBB LA) Problem List - Problems (1) Acute hypoxemic respiratory failure Code(s): J96.01 - ACUTE RESPIRATORY FAILURE WITH HYPOXIA (2) Altered mental status Code(s): R41.82 - ALTERED MENTAL STATUS, UNSPECIFIED Qualifiers: Altered mental status type: unspecified Qualified Code(s): R41.82 - Altered mental status, unspecified (3) CAD (coronary artery disease) Code(s): I25.10 - ATHSCL HEART DISEASE OF [place] CORONARY ARTERY W/O ANG PCTRS (4) Closed fracture of distal clavicle Code(s): S42.033A - DISP FX OF LATERAL END OF UNSP CLAVICLE, INIT FOR CLOS FX (5) Community acquired pneumonia Code(s): J18.9 - PNEUMONIA, UNSPECIFIED ORGANISM (6) Complicated UTI (urinary tract infection) Code(s): N39.0 - URINARY TRACT INFECTION, SITE NOT SPECIFIED (7) Confusion Code(s): R41.0 - DISORIENTATION, UNSPECIFIED (8) Dementia Code(s): F03.90 - UNSPECIFIED DEMENTIA WITHOUT BEHAVIORAL DISTURBANCE (9) Diabetes mellitus Code(s): E11.9 - TYPE 2 DIABETES MELLITUS WITHOUT COMPLICATIONS (10) Diastolic CHF Code(s): I50.30 - UNSPECIFIED DIASTOLIC (CONGESTIVE) HEART FAILURE (11) Elevated troponin Code(s): R74.8 - ABNORMAL LEVELS OF OTHER SERUM ENZYMES (12) Fever Code(s): R50.9 - FEVER, UNSPECIFIED Qualifiers: Fever type: unspecified Qualified Code(s): R50.9 - Fever, unspecified (13) HCAP (healthcare-associated pneumonia) Code(s): J18.9 - PNEUMONIA, UNSPECIFIED ORGANISM (14) HLD (hyperlipidemia) Code(s): E78.5 - HYPERLIPIDEMIA, UNSPECIFIED (15) HTN (hypertension) Code(s): I10 - ESSENTIAL (PRIMARY) HYPERTENSION (16) Hyperglycemia Code(s): R73.9 - HYPERGLYCEMIA, UNSPECIFIED (17) Hypoxia Code(s): R09.02 - HYPOXEMIA (18) Interstitial lung disease Code(s): J84.9 - INTERSTITIAL PULMONARY DISEASE, UNSPECIFIED (19) Metabolic encephalopathy Code(s): G93.41 - METABOLIC ENCEPHALOPATHY (20) Pneumonia Code(s): J18.9 - PNEUMONIA, UNSPECIFIED ORGANISM (21) Sepsis Code(s): A41.9 - SEPSIS, UNSPECIFIED ORGANISM (22) UTI (urinary tract infection) Code(s): N39.0 - URINARY TRACT INFECTION, SITE NOT SPECIFIED Assessment/Plan 84 year old white man with a past medical history of [place] (10 years ago; s/p stents; on plavix), insulin dependent diabetes, HLD, HTN, and dementia here today for evaluation of altered mental status, lethargy and slurred speech found to have positive TNIs Plan telemetry echo asa plavix lipitor bb serial ce
[2019-05-13] MEDS ORDERED: METOPROLOL TARTRATE 50 MG TABLET (FP) ONE (18:26)
--- NOTE | 2019-05-13 18:36 | PDOC ---
Attending Attestation - Resident Resident Name: Kathleen Martines - ED Attending Attestation I have performed the following: I have examined & evaluated the patient, The case was reviewed & discussed with the resident, I agree w/resident's findings & plan, Exceptions are as noted - HPI HPI: 05/13/19 18:38 Agree with resident HPI - Physicial Exam PE: 05/13/19 18:39 GENERAL: Awake, alert, in no acute distress. Appears comfortable. HEAD: No signs of trauma EYES: PERRLA, EOMI, sclera anicteric, conjunctiva clear. +disconjugate gaze intermittently with L eye external deviation on forward gaze ENT: Oropharynx clear without exudates. Moist mucosa NECK: Normal ROM, supple, no lymphadenopathy, JVD, or masses LUNGS: Breath sounds equal, clear to auscultation bilaterally. No wheezes, and no crackles HEART: Regular rate and rhythm, normal S1 and S2, no murmurs, rubs or gallops ABDOMEN: Soft, nontender, normoactive bowel sounds. No guarding, no rebound. No masses EXTREMITIES: Normal range of motion, no edema. No clubbing or cyanosis. No cords, erythema, or tenderness NEUROLOGICAL: Normal speech, cranial nerves intact, equal strength and sensation b/l SKIN: Warm, Dry, normal turgor, no rashes or lesions noted. - Medical Decision Making 05/13/19 18:42 84yo M hx HTN, HL, DM, CAD s/p 2 stents, BPH, traumatic ICH 11/2017 at [facility], dementia, prsents to the ED with 2 episodes of decreased responsiveness. History is limited 2/2 patients dementia Vitals wnl, no hypoxia, he is rectally afebrile A broad w/u was initiated including infectious vs ischemic vs neurologic vs metabolic vs endocrine etiologies W/u included labs, CTH, UA, CXR - thus far remarkable for trop leak of 1.65. Pt often leaks troponin in setting of infection but closer to 0.15 range EKG is completely unchanged, and per 2 daughters and aide, pt has had no complaints of CP or SOB. Possible NSTEMI vs arrhythmia - pt with no events on telemetry here PE is less likely with no CP, SOB, hypoxia, tachycardia, calf pain/swelling CHF is a possiblity as pt is on lasix, BNP has been added on although clinicially he does not appear fluid overloaded. CXR however with infiltrate vs PNA Given possibility of PNA, pt covered with Vanc/aztreonem (he has PCN allergy thus can't get cephalosporins, and would prefer to avoid levaquin as pt is on seroquel and could possibly be having an arrhythmia) Case discussed with Dr. Honr, he recommends full dose of asa (pt takes asa 81 and plavix daily) and 25mg lopressor which have been ordered as well as transfer down to [facility] for tele monitoring. Case discussed with CREDIT HISTORIAN Lalitha by Dr. Martines, pt accepted for admission under Dr. Spence's service Plan discussed with daughters and aide, they are in agreement. All questions answered. Pt now awaiting bed and transfer to [facility] 05/13/19 19:00 Case signed out to oncoming attending for observation and management of pt until transfer to [facility] Heart Score/ECG Review #1 05/13/19 18:41 EKG read and interpreted by me: Sinus rhythm, rate 64. LAD with RBBB. No HERNANDEZ. Compared to EKG from 09/04/18, no significant changes.
[2019-05-13] MEDS ORDERED: VANCOMYCIN 1,000 MG in DEXTROSE 5%-WATER - 250 ML IVPB ONE (18:50)
[2019-05-13] MEDS ORDERED: AZTREONAM 2 GM in DEXTROSE 5%-WATER 100 ML IVPB ONE (18:50)
--- NOTE | 2019-05-13 18:52 | HP ---
CHIEF COMPLAINT:change in mental status with two episodes of less responsiveness , lethargy and slurred speech PCP:Dr. Winchester Neurologist- Dr. Jay at [facility] HISTORY OF PRESENT ILLNESS: 84 year old male with past medical history significant for hypertension, hyperlipidemia, diabetes mellitus, coronary artery disease w/ [place] 10 years ago s/ p 2 stents (on plavix), BPH, seizure (one seizure after a fall and compliant on Keppra), dementia/Alzheimer's, traumatic ICH after a fall 11/2017 who was brought in by his aide and daughters for evaluation of an altered mental status changes with two episodes of less responsiveness, lethargy and slurred speech. Daughters report he had bulging eyes and a blank stare and reported pain in his neck. ER course was notable for: (1)CT scan of head negative for hemorrhage or acute intracranial findings. (2)Troponin elevation of 1.65. EKG with no acute ischemic changes,sinus rhythm with PACs, RBBB, no change from previous EKG in 08/2018 Recent Travel: no PAST MEDICAL HISTORY: hypertension hyperlipidemia diabetes mellitus coronary artery disease w/ [place] 10 years ago s/p 2 stents (on plavix) BPH seizure dementia/Alzheimer's traumatic ICH 11/2017 PAST SURGICAL HISTORY: no Social History: Smoking:former smoker, smoked for 40 years Alcohol: Drugs: Family History: Allergies hydrochlorothiazide Allergy (Intermediate, Verified 05/13/19 16:40) Delirium Penicillins Allergy (Intermediate, Verified 05/13/19 16:40) HOME MEDICATIONS: Home Medications Medication Instructions Recorded Atorvastatin Ca [Lipitor] 20 mg PO HS 05/13/19 Clopidogrel Bisulfate [Plavix] 75 mg PO DAILY 05/13/19 Furosemide [Lasix] 20 mg PO ASDIR 05/13/19 Insulin (Novolog) [Novolog] 0 units SQ ASDIR 05/13/19 Insulin Glargine,Hum.rec.anlog 14 unit SQ HS 05/13/19 [Lantus] Latanoprost 0.005% Eye Drops 1 drop OU HS 05/13/19 [Xalatan 0.005% Eye Drops -] Lisinopril [Prinivil] 10 mg PO DAILY 05/13/19 Memantine HCl [Memantine HCl ER] 28 mg PO DAILY 05/13/19 levETIRAcetam [Keppra -] 500 mg PO BID 05/13/19 REVIEW OF SYSTEMS CONSTITUTIONAL: Absent: fever, chills, diaphoresis, generalized weakness, malaise, loss of appetite, weight change, lethargy HEENT: Absent: rhinorrhea, nasal congestion, throat pain, throat swelling, difficulty swallowing, mouth swelling, ear pain, eye pain, visual changes CARDIOVASCULAR: Absent: chest pain, syncope, palpitations, irregular heart rate, lightheadedness , peripheral edema RESPIRATORY: Absent: cough, shortness of breath, dyspnea with exertion, orthopnea, wheezing, stridor, hemoptysis GASTROINTESTINAL: Absent: abdominal pain, abdominal distension, nausea, vomiting, diarrhea, constipation, melena, hematochezia GENITOURINARY: Absent: dysuria, frequency, urgency, hesitancy, hematuria, flank pain, genital pain MUSCULOSKELETAL: Absent: myalgia, arthralgia, joint swelling, back pain, neck pain SKIN: Absent: rash, itching, pallor HEMATOLOGIC/IMMUNOLOGIC: Absent: easy bleeding, easy bruising, lymphadenopathy, frequent infections ENDOCRINE: Absent: unexplained weight gain, unexplained weight loss, heat intolerance, cold intolerance NEUROLOGIC: Absent: headache, focal weakness or paresthesias, dizziness, unsteady gait, seizure, mental status changes, bladder or bowel incontinence, slurred speech PSYCHIATRIC: Absent: anxiety, depression, suicidal or homicidal ideation, hallucinations. PHYSICAL EXAMINATION Vital Signs - 24 hr 05/13/19 05/13/19 05/13/19 16:39 17:37 18:19 Temperature 98.4 F 99.2 F Pulse Rate 71 Pulse Rate [ 64 Apical] Respiratory 18 16 Rate Blood Pressure 131/74 Blood Pressure 123/69 [Left Arm] O2 Sat by Pulse 98 98 Oximetry (%) GENERAL: responsive to voice and touch, opens eyes on command confused HEAD: normal EYES: pupils equal, round and reactive to light EARS, NOSE, THROAT: ears normal, nares patent, oropharynx clear without exudates NECK: no JVD LUNGS: breath sounds equal and clear to auscultation bilaterally no wheezes and no crackles no accessory muscle use HEART: regular rate and rhythm,normal S1 and S2 without murmur ABDOMEN: soft, nontender, not distended, normoactive bowel sounds MUSCULOSKELETAL: linited range of motion at all joints no bony deformities or tenderness UPPER EXTREMITIES: 2+ pulses, warm well-perfused no cyanosis. no peripheral edema. LOWER EXTREMITIES: 2+ pulses, warm, well-perfuse no pitting edema NEUROLOGICAL: no facila grimace no facial droop moving upper and lower extremities PSYCHIATRIC: cooperative SKIN: warm sacral and heel redness no open skin areas Laboratory Results - last 24 hr 05/13/19 05/13/19 05/13/19 17:30 17:30 17:30 WBC 7.4 RBC 4.35 Hgb 13.0 Hct 39.5 D MCV 90.7 MCH 29.8 MCHC 32.9 RDW 13.7 Plt Count 227 MPV 8.8 Absolute Neuts (auto) 5.8 Neutrophils % 76.8 Lymphocytes % 12.7 Monocytes % 8.7 Eosinophils % 1.3 Basophils % 0.5 PT with INR INR PTT (Actin FS) 27.8 Sodium 141 Potassium 4.9 Chloride 104 Carbon Dioxide 28 Anion Gap 9 BUN 45.0 H Creatinine 1.1 Est GFR (CKD-EPI)AfAm 71.07 Est GFR (CKD-EPI)NonAf 61.32 Random Glucose 186 H Calcium 9.0 Magnesium 2.1 Total Bilirubin 0.6 AST 24 ALT 21 Alkaline Phosphatase 81 Troponin I Total Protein 6.8 Albumin 3.7 05/13/19 05/13/19 17:30 17:40 WBC RBC Hgb Hct MCV MCH MCHC RDW Plt Count MPV Absolute Neuts (auto) Neutrophils % Lymphocytes % Monocytes % Eosinophils % Basophils % PT with INR 13.0 INR 1.16 PTT (Actin FS) Sodium Potassium Chloride Carbon Dioxide Anion Gap BUN Creatinine Est GFR (CKD-EPI)AfAm Est GFR (CKD-EPI)NonAf Random Glucose Calcium Magnesium Total Bilirubin AST ALT Alkaline Phosphatase Troponin I 1.65 H* Total Protein Albumin Diagnostics CT Head without acute abnormality: CT brain without contrast Head trauma with fall No acute calvarial fracture. Normal region of orbits including maxillofacial region with no acute fracture. Midline ventricular system with no shift or hydrocephalus. Widening of the sylvian fissure and cerebral cortical sulci consistent with cerebral parenchymal volume loss. No acute subdural or subarachnoid hemorrhage No CT evidence of mass, hemorrhage or acute vascular territory infarction. No sulcal effacement or increased intracranial pressure, no signs of downward herniation Impression: No acute intracranial hemorrhage or acute infarction, no acute changes in the brain identified. ASSESSMENT/PLAN: Mr. Lawrence is an 84 year old male with past medical history significant for hypertension, hyperlipidemia, diabetes mellitus, CAD/VT 10 years ago s/p 2 stents (on plavix), BPH, seizure (one seizure after a fall and reported compliant on Keppra), dementia/Alzheimer's, and traumatic ICH 11/2017 who presented with altered mental status changes as reported with two episodes of less responsiveness, lethargy and slurred speech. #1 Altered Mental Status Changes Workup w/CT scan of head negative for hemorrhage or acute intracranial findings. Patient has history of ICH(2017), afebrile, normal WBC UA pending TSH normal Neurology consulted- Dr. Holcomb #2 NSTEMI/ HX CAD with prior stents Troponin elevated a 1.65. EKG with no acute ischemic changes, RBBB Continue to trend troponins Repeat EKG in am Aspirin and statin therapy added Continue with plavix 75mg daily Metoprolol tartrate 25mg twice daily added Patient appears euvolemic on exam, BNP pending Check echocardiogram to evaluate LV function and exclude wall motion abnormalities Cadiology consulted - Dr. Londoon #3 Hx Seizures Continue with Keppra Check Keppra level Neurology consulted-Dr. Holcomb #4 Hypertension Controlled Continue with metoprolol tartrate and lisinopril #5 Diabetes Mellitus BGM before meals and at bedtime Check hemoglobin a1c Insulin as per sliding scale #6 Hyperlipidemia Atorvastatin 20mg added #7 Dementia/Alzheimer's Disease Continue with memantine #8 BPH Continue with finesteride FEN low sodium diet, monitor electrolytes DVT TEDS and SCD's Visit type - Emergency Visit Emergency Visit: Yes ED Registration Date: 05/13/19 Care time: The patient presented to the Emergency Department on the above date and was hospitalized for further evaluation of their emergent condition. - New Patient This patient is new to me today: Yes Date on this admission: 05/13/19 - Critical Care Critical Care patient: No
[2019-05-13] MEDS ORDERED: VANCOMYCIN 1,000 MG VIAL (RESTRICTED TO ID ONLY) ONE (18:58)
[2019-05-13 20:06] LABS: N-TERMINAL BNP 90.3 pg/ml (5-450)
[2019-05-13] MEDS ORDERED: INSULIN (LEVEMIR) 100 UNITS/ML UNITS SQ ONE (21:37)
[2019-05-13] MEDS ORDERED: MUPIROCIN 2% TOPICAL OINTMENT FOR DECOLONIZATION NS SCH (22:00)
[2019-05-13] MEDS ORDERED: CHLORHEXIDINE GLUCONATE 4% CLEANSER FOR DECOLONIZATION TP SCH (22:00)
[2019-05-13] MEDS: levETIRAcetam 500 MG TABLET (FP) PO SCH (23:45)
[2019-05-13] MEDS: ATORVASTATIN CA 20 MG TABLET (FP) PO SCH (23:45)
[2019-05-14] MEDS: LATANOPROST 0.005% OPHTH SOLN 2.5ML BOTTLE OU SCH ×2 (00:32→23:43)
[2019-05-14] MEDS: METOPROLOL TARTRATE 25 MG TABLET (FP) PO SCH ×3 (00:33→22:27)
[2019-05-14 01:10] LABS: N-TERMINAL BNP 96.9 pg/ml (5-450)
[2019-05-14 02:31] VITALS: BMI 17.3
[2019-05-14] MEDS: INSULIN SLIDING SCALE (NOVOLOG) 1 VIAL SQ SCH ×2 (06:10→17:11)
[2019-05-14] MEDS ORDERED: DEXTROSE 50%-WATER - 25 GM/50 ML VIAL IVPUSH ONE (06:11)
[2019-05-14] MEDS ORDERED: DEXTROSE 50%-WATER 25 GM/50 ML DISP.SYRIN ONE (06:15)
[2019-05-14 07:41] LABS: HEMATOCRIT 35.7 % (35.4-49); HEMOGLOBIN 11.8 GM/dL (11.7-16.9); MCH 29.8 pg (25.7-33.7); MEAN CELL VOLUME 90.3 fl (80-96); MEAN PLT VOLUME 8.6 fl (7.5-11.1); PLATELET COUNT 197 K/MM3 (134-434); RBC 3.96 M/mm3 (4.00-5.60); RDW 14.8 % (11.9-15.9); WHITE BLOOD COUNT 5.4 K/mm3 (4.0-10.0)
[2019-05-14 07:48] LABS: BLOOD UREA NITROGEN 43.7 mg/dL (7-18); CALCIUM 8.7 mg/dL (8.5-10.1); CREATININE 1.1 mg/dL (0.55-1.3); POTASSIUM 3.8 mmol/L (3.5-5.1)
[2019-05-14] MEDS ORDERED: POTASSIUM CHLORIDE TABS 10 MEQ TABLET.ER (FP) PO ONE (08:03)
--- NOTE | 2019-05-14 08:52 | EKG ---
Test Reason : Blood Pressure : / mmHG Vent. Rate : 062 BPM Atrial Rate : 062 BPM P-R Int : 162 ms QRS Dur : 138 ms QT Int : 450 ms P-R-T Axes : 037 -48 -06 degrees QTc Int : 456 ms NORMAL SINUS RHYTHM RIGHT BUNDLE BRANCH BLOCK LEFT ANTERIOR FASCICULAR BLOCK BIFASCICULAR BLOCK POSSIBLE LATERAL INFARCT , AGE UNDETERMINED ABNORMAL ECG WHEN COMPARED WITH ECG OF 13-MAY-2019 16:50, PREMATURE ATRIAL COMPLEXES ARE NO LONGER PRESENT LEFT ANTERIOR FASCICULAR BLOCK IS NOW PRESENT Confirmed by JORGE MEJIA, FEDERICO ([id number]) on 05/14/2019 8:52:30 AM Referred By: WINTER Confirmed By:FEDERICO PATEL MD
--- NOTE | 2019-05-14 08:52 | EKG ---
Test Reason : Blood Pressure : / mmHG Vent. Rate : 064 BPM Atrial Rate : 064 BPM P-R Int : 142 ms QRS Dur : 132 ms QT Int : 436 ms P-R-T Axes : 020 -36 -10 degrees QTc Int : 449 ms SINUS RHYTHM WITH PREMATURE ATRIAL COMPLEXES LEFT AXIS DEVIATION RIGHT BUNDLE BRANCH BLOCK ABNORMAL ECG WHEN COMPARED WITH ECG OF 04-SEP-2018 14:14, PREMATURE VENTRICULAR COMPLEXES ARE NO LONGER PRESENT PREMATURE ATRIAL COMPLEXES ARE NOW PRESENT T WAVE INVERSION NO LONGER EVIDENT IN ANTERIOR LEADS Confirmed by JORGE MEJIA, FEDERICO ([id number]) on 05/14/2019 8:52:14 AM Referred By: WINTER Confirmed By:FEDERICO PATEL MD
[2019-05-14] MEDS ORDERED: PT OWN MED DRAWER 7, Y5N ONE (09:32)
[2019-05-14] MEDS: ASPIRIN COATED 81 MG TABLET.EC PO SCH (12:22)
[2019-05-14] MEDS: CLOPIDOGREL BISULFATE 75 MG TABLET (FP) PO SCH (12:22)
[2019-05-14] MEDS: FINASTERIDE 5 MG TABLET (FP) PO SCH (12:23)
[2019-05-14] MEDS: levETIRAcetam 500 MG TABLET (FP) PO SCH ×2 (12:23→22:27)
[2019-05-14] MEDS: LISINOPRIL 10 MG TABLET (FP) PO SCH (12:23)
[2019-05-14] MEDS: MEMANTINE HCL 28 MG PO SCH (14:07)
--- NOTE | 2019-05-14 14:53 | EKG ---
Test Reason : Blood Pressure : / mmHG Vent. Rate : 064 BPM Atrial Rate : 064 BPM P-R Int : 144 ms QRS Dur : 138 ms QT Int : 458 ms P-R-T Axes : 032 -43 -10 degrees QTc Int : 472 ms NORMAL SINUS RHYTHM LEFT AXIS DEVIATION RIGHT BUNDLE BRANCH BLOCK ABNORMAL ECG WHEN COMPARED WITH ECG OF 13-MAY-2019 19:07, T WAVE INVERSION NOW EVIDENT IN ANTERIOR LEADS Confirmed by JORGE MEJIA, FEDERICO ([id number]) on 05/14/2019 2:52:45 PM Referred By: Lester IQBAL Confirmed By:FEDERICO PATEL MD
--- NOTE | 2019-05-14 15:17 | PN ---
Progress Note, Physician Chief Complaint: admitted for evaluation due to AMS Pt with elevated troponin 1.65--> 1.68-->1.61 - Current Medication List Current Medications: Active Medications Aspirin (Ecotrin -) 81 mg PO DAILY [facility] Last Admin: 05/14/19 12:22 Dose: 81 mg Atorvastatin Calcium (Lipitor -) 20 mg PO HS [facility] Last Admin: 05/13/19 23:45 Dose: 20 mg Clopidogrel Bisulfate (Plavix -) 75 mg PO DAILY [facility] Last Admin: 05/14/19 12:22 Dose: 75 mg Finasteride (Proscar -) 5 mg PO DAILY [facility] Last Admin: 05/14/19 12:23 Dose: 5 mg Insulin Aspart ([facility] Vial Sliding Scale -) [facility] Last Admin: 05/14/19 06:10 Dose: Not Given Latanoprost (Xalatan 0.005% Eye Drops -) 1 drop OU [facility] Last Admin: 05/14/19 00:32 Dose: 1 drop Levetiracetam (Keppra -) 500 mg PO BID [facility] Last Admin: 05/14/19 12:23 Dose: 500 mg Lisinopril (Prinivil) 10 mg PO DAILY [facility] Last Admin: 05/14/19 12:23 Dose: 10 mg Metoprolol Tartrate (Lopressor -) 25 mg PO BID [facility] Last Admin: 05/14/19 12:23 Dose: 25 mg Non-Formulary Medication (Memantine Hcl [Memantine Hcl Er]) 28 mg PO DAILY [facility] Last Admin: 05/14/19 14:07 Dose: 28 mg - Objective Vital Signs: Vital Signs Temperature 97.4 F L 05/14/19 06:00 Pulse Rate 54 L 05/14/19 06:00 Respiratory Rate 20 05/14/19 06:00 Blood Pressure 115/45 L 05/14/19 06:00 O2 Sat by Pulse Oximetry (%) 95 05/14/19 08:58 Constitutional: Yes: No Distress, Calm Eyes: Yes: Other (right eye exopthalmus) HENT: Yes: Atraumatic, Normocephalic Neck: Yes: Supple, Trachea Midline Cardiovascular: Yes: Regular Rate and Rhythm Respiratory: Yes: Regular, CTA Bilaterally Gastrointestinal: Yes: Normal Bowel Sounds, Soft ...Rectal Exam: Yes: Deferred Musculoskeletal: Yes: WNL Extremities: Yes: WNL Edema: No Peripheral Pulses WNL: Yes Peripheral Pulses: Left Radial: 2+, Right Radial: 2+, Left Doralis Pedis: 2+, Right Dorsalis Pedis: 2+ Integumentary: Yes: WNL Neurological: Yes: Alert, Confusion, Unsteady Gait, Weakness Psychiatric: Yes: Alert Labs: CBC, BMP 05/14/19 06:50 05/14/19 06:50 INR, PTT INR 1.16 (0.82-1.09) 05/13/19 17:30 - ....Imaging EKG: Report Reviewed (EKG 05/14/2019: NSR 64bpm, VIDAL 144ms, QRS 138ms, QTc 472ms. RBBB.) Impression/Plan Impression/Plan: ASSESSMENT/PLAN: Mr. Lawrence is an 84 year old male with past medical history significant for hypertension, hyperlipidemia, diabetes mellitus, CAD/HI 10 years ago s/p 2 stents (on plavix), BPH, seizure (one seizure after a fall and reported compliant on Keppra), dementia/Alzheimer's, and traumatic ICH 11/2017 who presented with altered mental status now noted with troponin leak. Cardiology consulted and recommends echo + medical management with serial trops. #1 Altered Mental Status Changes Workup w/CT scan of head negative for hemorrhage or acute intracranial findings. Patient has history of ICH(2017), afebrile, normal WBC UA pending TSH normal Neurology consulted- Dr. Holcomb #2 NSTEMI/ HX CAD with prior stents Troponin elevated a 1.65. EKG with no acute ischemic changes, RBBB Serial trop and EKGs Aspirin and statin therapy Continue with plavix 75mg daily Metoprolol tartrate 25mg twice daily added echocardiogram ordered to evaluate LV function and exclude wall motion abnormalities Cadiology following #3 Hx Seizures, mental status changes Continue with Keppra Keppra level pending Neurology consulted-Dr. Holcomb #4 Hypertension Controlled Continue with metoprolol tartrate and lisinopril #5 Diabetes Mellitus BGM before meals and at bedtime Insulin sliding scale restart levemir at lower dose (5units qhs) uptitrate as needed #6 Hyperlipidemia Atorvastatin 20mg #7 Dementia/Alzheimer's Disease Continue with memantine #8 BPH Continue with finesteride FEN low sodium diet, monitor electrolytes DVT TEDS and SCD's Visit type - Emergency Visit Emergency Visit: Yes ED Registration Date: 05/13/19 Care time: The patient presented to the Emergency Department on the above date and was hospitalized for further evaluation of their emergent condition. - New Patient This patient is new to me today: Yes Date on this admission: 05/14/19 - Critical Care Critical Care patient: No - Discharge Referral Referred to [facility] No
[2019-05-14] MEDS: INSULIN (LEVEMIR) 100 UNITS/ML UNITS SQ SCH ×2 (22:27→22:34)
[2019-05-14] MEDS: ATORVASTATIN CA 20 MG TABLET (FP) PO SCH (22:27)
[2019-05-15 05:14] LABS: URINE APPEARANCE CLEAR; URINE BILIRUBIN NEGATIVE (NEGATIVE); URINE COLOR YELLOW; URINE GLUCOSE (UA) 2+ (NEGATIVE); URINE KETONE NEGATIVE (NEGATIVE); URINE LEUK ESTERASE NEGATIVE (NEGATIVE); URINE NITRITE NEGATIVE (NEGATIVE); URINE PROTEIN NEGATIVE (NEGATIVE); URINE UROBILINOGEN 0.2 mg/dL (0.2-1.0)
[2019-05-15] MEDS: INSULIN SLIDING SCALE (NOVOLOG) 1 VIAL SQ SCH ×2 (06:27→17:34)
[2019-05-15] MEDS ORDERED: PT OWN MED DRAWER 7, Y5N ONE (06:44)
[2019-05-15 07:57] LABS: ALBUMIN 3.3 g/dl (3.4-5.0); BILIRUBIN,TOTAL 0.8 mg/dL (0.2-1); BLOOD UREA NITROGEN 28.6 mg/dL (7-18); CALCIUM 8.8 mg/dL (8.5-10.1); MAGNESIUM 2.1 mg/dL (1.8-2.4); PHOSPHOROUS 2.8 mg/dL (2.5-4.9); POTASSIUM 4.5 mmol/L (3.5-5.1); TOT PROT 6.2 g/dl (6.4-8.2)
[2019-05-15] MEDS: FINASTERIDE 5 MG TABLET (FP) PO SCH (10:12)
[2019-05-15] MEDS: levETIRAcetam 500 MG TABLET (FP) PO SCH ×2 (10:13→21:30)
[2019-05-15] MEDS: LISINOPRIL 10 MG TABLET (FP) PO SCH (10:13)
[2019-05-15] MEDS: CLOPIDOGREL BISULFATE 75 MG TABLET (FP) PO SCH (10:13)
[2019-05-15] MEDS: METOPROLOL TARTRATE 25 MG TABLET (FP) PO SCH ×2 (10:13→21:32)
[2019-05-15] MEDS: MEMANTINE HCL 28 MG PO SCH (10:14)
--- NOTE | 2019-05-15 11:21 | CONSULT ---
Consult - text type - Consultation Consultation Note: NEUROlOGY CONSULT GREATLY APPRECIATED: Events reviewed and discussed with more Renee at bedside. Call with daughter Judit hilliard father. Outpatient neurology consultation reviewed (Dr. Day). Cardiology consult read and appreciated. 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 PMHX HTN, HLD, DM, dementia, CAD s/p stents, and possible post-traumatic seizure after a fall with head trauma 10/2018. Outpt notes suggest R SDH. On: atorvastatin, clopidogrel, furosemide, insulin, lisinopril, memantine ER 28mg daily (by PCP Dr. Zimmerman), levetiracitam 500 mg BID. Aide is at home 04/04 and assists in all ADL's. Notes progressive gait decline over past 5 years, first occurring after traumatic fall and femur fx. Now with walker. Was previously followed by Dr. Ifrah Day (neurologist) for seizures. Admitted after new lethargy x 2 days per aide and found with elevated troponins , now on cardiac monitoring. Daughter concerned about father's agitation and trouble sleeping during evening hours, which has been ongoing and attributed to "owning." Head CT (reviewed): Moderate, diffuse, cerebral atrophy with deep sulcal widening. No acute pathology. EKG NSR, RBBB TSH 1.62; A1c 8.5%; UA neg ABBY: Cor reg. No bruit. Restricted neck ROM all directions. Tied down with Dixie restraint. Mentation/Speech: Follows all simple commands. Hypophonic and Gibberish. Knows name. No age. No location. Year. + glabella, grasps CNII-CNXII: Exophthalmos. Decreased vision on L with exotropia. Full braden. No facial. Swallows small sips H20 without difficulty Motor: No apparent drift. Intermittent jaw tremor. + cogwheeling. Strength normal with rigid tone. Decreased JIMMY's. Reflexes brisk with spread. Plantars silent. Coordination: No apparent FTN dystaxia. Sensation: Withdraws all fours to pinch Gait: Deferred Impression: Mod-Severe B/L cerebral dysfunction (OMS, chronic) most c/w Alzheimer's disease Extrapyramidal features c/w Parkinsonism Multi-factorial gait dysfunction secondary to above Seizures by history Suggest: Review prior neuroimaging and reports from Dr. Day and Dr. Zimmerman Check B12, RPR Continue Memantine 10 BID and add donepezil 5 mg q AM Check orthostatic BP's Continue cardiology eval Assist with feeds. Bedside PT vs. contracture and for gait assessment with walker when stable. If HS agitation persists during hospital stay, suggest addition of quetiapine 25 mg HS. Thank you very much, Santana Holcomb MD
[2019-05-15] MEDS: ASPIRIN COATED 81 MG TABLET.EC PO SCH (12:19)
--- NOTE | 2019-05-15 12:41 | EKG ---
Test Reason : Blood Pressure : / mmHG Vent. Rate : 062 BPM Atrial Rate : 062 BPM P-R Int : 140 ms QRS Dur : 134 ms QT Int : 442 ms P-R-T Axes : 027 -47 -24 degrees QTc Int : 448 ms NORMAL SINUS RHYTHM RIGHT BUNDLE BRANCH BLOCK LEFT ANTERIOR FASCICULAR BLOCK BIFASCICULAR BLOCK ABNORMAL ECG WHEN COMPARED WITH ECG OF 14-MAY-2019 10:03, NO SIGNIFICANT CHANGE WAS FOUND Confirmed by Bharath Campos MD ([id number]) on 05/15/2019 12:40:32 PM Referred By: Cortes NORIEGA Confirmed By:Bharath Campos MD
--- NOTE | 2019-05-15 13:16 | ECHO ---
Version: 1 Name: YAMEL FRAUSTO Exam: Adult Echocardiogram Study Date: 05/15/2019, 8:07 AM Age: 84 Years MMode/2D Measurements & Calculations IVSd: 1.00 cm LVIDs: 2.9 cm LVIDd: 4.9 cm LVPWd: 1.27 cm LVOT diam: 2.00 cm Ao root diam: 3.1 cm LA dimension: 3.2 cm Doppler Measurements & Calculations MV E max rancho: 46.1 cm/sec Med E/e': 8.5 MV A max rancho: 70.8 cm/sec Med Peak E' Rancho: 5.4 cm/sec MV E/A: 0.65 Lat E/e': 5.4 Lat Peak E' Rancho: 8.6 cm/sec Ao max P.0 mmHg PELON(I,D): 2.16 cm Ao mean P.6 mmHg LV V1 mean: 69.2 cm/sec Ao V2 max: 157.5 cm/sec LV V1 mean P.42 mmHg TR max rancho: 287.7 cm/sec TR max P.2 mmHg Left Ventricle The left ventricular size, thickness and function are normal. Ejection Fraction = 65. The transmitra l spectral Doppler flow pattern is suggestive of impaired LV relaxation. Right Ventricle The right ventricle is normal in size and function. Atria The left atrium is borderline dilated. Right atrial size is normal. Mitral Valve The mitral valve is grossly normal. There is trace mitral regurgitation. Aortic Valve There is moderate aortic sclerosis.;. No hemodynamically significant valvular aortic stenosis. Pulmonic Valve The pulmonic valve is not well visualized. Great Vessels The aortic root is normal size. Pericardium/Pleura There is no pericardial effusion. Summary Statements The left ventricular size, thickness and function are normal. The transmitral spectral Doppler flow pattern is suggestive of impaired LV relaxation. The right ventricle is normal in size and function. The left atrium is borderline dilated. Right atrial size is normal. The mitral valve is grossly normal. There is trace mitral regurgitation. There is moderate aortic sclerosis.; No hemodynamically significant valvular aortic stenosis. MD Celena Kong05/15/2019, 12:15 PM Ordering Physician: Myranda Tirado Referring Physician: MYRANDA TIRADO Performed By: Penny Sheffield
--- NOTE | 2019-05-15 16:28 | PN ---
Progress Note, Physician Chief Complaint: admitted for evaluation due to AMS Pt with elevated troponin 1.65--> 1.68-->1.61 aide at bedside, provides most of the history - Current Medication List Current Medications: Active Medications Aspirin (Ecotrin -) 81 mg PO DAILY [facility] Last Admin: 05/15/19 12:19 Dose: 81 mg Atorvastatin Calcium (Lipitor -) 20 mg PO [facility] Last Admin: 05/14/19 22:27 Dose: 20 mg Clopidogrel Bisulfate (Plavix -) 75 mg PO DAILY [facility] Last Admin: 05/15/19 10:13 Dose: 75 mg Finasteride (Proscar -) 5 mg PO DAILY [facility] Last Admin: 05/15/19 10:12 Dose: 5 mg Insulin Aspart (Novolog Vial Sliding Scale -) [facility] Protocol Last Admin: 05/15/19 06:27 Dose: Not Given Insulin Detemir (Levemir Vial) 5 units SQ [facility] Last Admin: 05/14/19 22:34 Dose: Not Given Latanoprost (Xalatan 0.005% Eye Drops -) 1 drop OU [facility] Last Admin: 05/14/19 23:43 Dose: 1 drop Levetiracetam (Keppra -) 500 mg PO BID [facility] Last Admin: 05/15/19 10:13 Dose: 500 mg Lisinopril (Prinivil) 10 mg PO DAILY [facility] Last Admin: 05/15/19 10:13 Dose: 10 mg Metoprolol Tartrate (Lopressor -) 25 mg PO BID [facility] Last Admin: 05/15/19 10:13 Dose: 25 mg Non-Formulary Medication (Memantine Hcl [Memantine Hcl Er]) 28 mg PO DAILY [facility] Last Admin: 05/15/19 10:14 Dose: 28 mg - Objective Vital Signs: Vital Signs Temperature 98.6 F 05/15/19 14:00 Pulse Rate 69 05/15/19 14:00 Respiratory Rate 18 05/15/19 14:00 Blood Pressure 124/80 05/15/19 14:00 O2 Sat by Pulse Oximetry (%) 62 L 05/15/19 09:00 Constitutional: Yes: No Distress, Calm Eyes: Yes: WNL HENT: Yes: Atraumatic Neck: Yes: Supple Cardiovascular: Yes: Regular Rate and Rhythm Respiratory: Yes: WNL Gastrointestinal: Yes: Soft ...Rectal Exam: Yes: Deferred Genitourinary: Yes: WNL Breast(s): Yes: WNL Musculoskeletal: Yes: WNL Edema: No Integumentary: Yes: WNL Neurological: Yes: Alert, Oriented Labs: CBC, BMP 05/14/19 06:50 05/15/19 06:46 INR, PTT INR 1.16 (0.82-1.09) 05/13/19 17:30 Impression/Plan Impression/Plan: Mr. Lawrence is an 84 year old male with past medical history significant for hypertension, hyperlipidemia, diabetes mellitus, CAD/CT 10 years ago s/p 2 stents (on plavix), BPH, seizure (one seizure after a fall and reported compliant on Keppra), dementia/Alzheimer's, and traumatic ICH 11/2017 who presented with altered mental status now noted with troponin leak. Cardiology consulted and recommends echo + medical management with serial trops. #1 Altered Mental Status Changes Workup w/CT scan of head negative for hemorrhage or acute intracranial findings. Patient has history of ICH (2017), afebrile, normal WBC TSH normal Neurology consulted- Dr. Holcomb #2 NSTEMI/ HX CAD with prior stents Troponin elevated a 1.65. EKG with no acute ischemic changes, RBBB Serial trop and EKGs Aspirin and statin therapy Continue with plavix 75mg daily Metoprolol tartrate 25mg twice daily echocardiogram ordered to evaluate LV function Cadiology following #3 Hx Seizures, mental status changes Continue with Keppra Keppra level pending Neurology consulted-Dr. Holcomb #4 Hypertension Controlled Continue with metoprolol tartrate and lisinopril #5 Diabetes Mellitus BGM before meals and at bedtime Insulin sliding scale restart levemir #6 Hyperlipidemia Atorvastatin 20mg #7 Dementia/Alzheimer's Disease Continue with memantine #8 BPH Continue with finesteride FEN low sodium diet, monitor electrolytes DVT TEDS and SCD's Visit type - Emergency Visit Emergency Visit: Yes ED Registration Date: 05/13/19 Care time: The patient presented to the Emergency Department on the above date and was hospitalized for further evaluation of their emergent condition. - New Patient This patient is new to me today: Yes Date on this admission: 05/15/19 - Critical Care Critical Care patient: No - Discharge Referral Referred to [facility] Med P.C.: No
[2019-05-15] MEDS: ATORVASTATIN CA 20 MG TABLET (FP) PO SCH (21:30)
[2019-05-15] MEDS: LATANOPROST 0.005% OPHTH SOLN 2.5ML BOTTLE OU SCH (21:31)
[2019-05-15] MEDS: INSULIN (LEVEMIR) 100 UNITS/ML UNITS SQ SCH (21:31)
[2019-05-16] MEDS: INSULIN SLIDING SCALE (NOVOLOG) 1 VIAL SQ SCH ×2 (06:41→17:14)
--- NOTE | 2019-05-16 08:14 | PN ---
Progress Note, Physician History of Present Illness: The patient is an 84 year old white man with a past medical history of FL (10 years ago; s/p stents; on plavix), insulin dependent diabetes, HLD, HTN, and dementia here today for evaluation of altered mental status, lethargy and slurred speech - Current Medication List Current Medications: Active Medications Aspirin (Ecotrin -) 81 mg PO DAILY [facility] Last Admin: 05/15/19 12:19 Dose: 81 mg Atorvastatin Calcium (Lipitor -) 20 mg PO HS [facility] Last Admin: 05/15/19 21:30 Dose: 20 mg Clopidogrel Bisulfate (Plavix -) 75 mg PO DAILY [facility] Last Admin: 05/15/19 10:13 Dose: 75 mg Finasteride (Proscar -) 5 mg PO DAILY [facility] Last Admin: 05/15/19 10:12 Dose: 5 mg Insulin Aspart (Novolog Vial Sliding Scale -) [facility]; Protocol Last Admin: 05/16/19 06:41 Dose: Not Given Insulin Detemir (Levemir Vial) 5 units SQ [facility] Last Admin: 05/15/19 21:31 Dose: 5 units Latanoprost (Xalatan 0.005% Eye Drops -) 1 drop OU HS [facility] Last Admin: 05/15/19 21:31 Dose: 1 drop Levetiracetam (Keppra -) 500 mg PO BID [facility] Last Admin: 05/15/19 21:30 Dose: 500 mg Lisinopril (Prinivil) 10 mg PO DAILY [facility] Last Admin: 05/15/19 10:13 Dose: 10 mg Metoprolol Tartrate (Lopressor -) 25 mg PO BID [facility] Last Admin: 05/15/19 21:32 Dose: Not Given Non-Formulary Medication (Memantine Hcl [Memantine Hcl Er]) 28 mg PO DAILY [facility] Last Admin: 05/15/19 10:14 Dose: 28 mg - Objective Vital Signs: Vital Signs Temperature 98.4 F 05/16/19 06:00 Pulse Rate 43 L 05/16/19 06:00 Respiratory Rate 18 05/16/19 06:00 Blood Pressure 109/60 05/16/19 06:00 O2 Sat by Pulse Oximetry (%) 93 L 05/15/19 21:00 Eyes: Yes: WNL, Conjunctiva Clear, EOM Intact HENT: Yes: WNL, Atraumatic, Normocephalic Neck: Yes: WNL, Supple, Trachea Midline Cardiovascular: Yes: WNL, Regular Rate and Rhythm Respiratory: Yes: WNL, Regular, CTA Bilaterally Gastrointestinal: Yes: WNL, Normal Bowel Sounds Genitourinary: Yes: WNL Musculoskeletal: Yes: WNL Extremities: Yes: WNL Edema: No Integumentary: Yes: WNL ...Motor Strength: WNL Psychiatric: Yes: WNL Labs: INR, PTT INR 1.16 (0.82-1.09) 05/13/19 17:30 Problem List - Problems (1) Acute hypoxemic respiratory failure Code(s): J96.01 - ACUTE RESPIRATORY FAILURE WITH HYPOXIA (2) Altered mental status Code(s): R41.82 - ALTERED MENTAL STATUS, UNSPECIFIED Qualifiers: Altered mental status type: unspecified Qualified Code(s): R41.82 - Altered mental status, unspecified (3) CAD (coronary artery disease) Code(s): I25.10 - ATHSCL HEART DISEASE OF [place] CORONARY ARTERY W/O ANG PCTRS (4) Closed fracture of distal clavicle Code(s): S42.033A - DISP FX OF LATERAL END OF UNSP CLAVICLE, INIT FOR CLOS FX (5) Community acquired pneumonia Code(s): J18.9 - PNEUMONIA, UNSPECIFIED ORGANISM (6) Complicated UTI (urinary tract infection) Code(s): N39.0 - URINARY TRACT INFECTION, SITE NOT SPECIFIED (7) Confusion Code(s): R41.0 - DISORIENTATION, UNSPECIFIED (8) Dementia Code(s): F03.90 - UNSPECIFIED DEMENTIA WITHOUT BEHAVIORAL DISTURBANCE (9) Diabetes mellitus Code(s): E11.9 - TYPE 2 DIABETES MELLITUS WITHOUT COMPLICATIONS (10) Diastolic CHF Code(s): I50.30 - UNSPECIFIED DIASTOLIC (CONGESTIVE) HEART FAILURE (11) Elevated troponin Code(s): R74.8 - ABNORMAL LEVELS OF OTHER SERUM ENZYMES (12) Fever Code(s): R50.9 - FEVER, UNSPECIFIED Qualifiers: Fever type: unspecified Qualified Code(s): R50.9 - Fever, unspecified (13) HCAP (healthcare-associated pneumonia) Code(s): J18.9 - PNEUMONIA, UNSPECIFIED ORGANISM (14) HLD (hyperlipidemia) Code(s): E78.5 - HYPERLIPIDEMIA, UNSPECIFIED (15) HTN (hypertension) Code(s): I10 - ESSENTIAL (PRIMARY) HYPERTENSION (16) Hyperglycemia Code(s): R73.9 - HYPERGLYCEMIA, UNSPECIFIED (17) Hypoxia Code(s): R09.02 - HYPOXEMIA (18) Interstitial lung disease Code(s): J84.9 - INTERSTITIAL PULMONARY DISEASE, UNSPECIFIED (19) Metabolic encephalopathy Code(s): G93.41 - METABOLIC ENCEPHALOPATHY (20) Pneumonia Code(s): J18.9 - PNEUMONIA, UNSPECIFIED ORGANISM (21) Sepsis Code(s): A41.9 - SEPSIS, UNSPECIFIED ORGANISM (22) UTI (urinary tract infection) Code(s): N39.0 - URINARY TRACT INFECTION, SITE NOT SPECIFIED Assessment/Plan 84 year old white man with a past medical history of FL (10 years ago; s/p stents; on plavix), insulin dependent diabetes, HLD, HTN, and dementia here today for evaluation of altered mental status, lethargy and slurred speech found to have positive TNIs. ECHO nl ef . No chest pain. Neurology consultation appreciated. Plan d/c telemetry cont medical rx asa plavix lipitor bb Due to dementia/alzheimers patient is not a candidate for stress test /invasive cardiac testing
[2019-05-16 08:41] LABS: BASO % 0.6 % (0-2.0); EOS % 2.5 % (0-4.5); HEMATOCRIT 33.6 % (35.4-49); HEMOGLOBIN 11.2 GM/dL (11.7-16.9); LYMPH % 17.7 % (8-40); MCHC 33.3 g/dl (32.0-35.9); MEAN CELL VOLUME 90.1 fl (80-96); MEAN PLT VOLUME 8.8 fl (7.5-11.1); MONO % 9.8 % (3.8-10.2); NEUT % 69.4 % (42.8-82.8); PLATELET COUNT 175 K/MM3 (134-434); RBC 3.73 M/mm3 (4.00-5.60); RDW 14.6 % (11.9-15.9); WHITE BLOOD COUNT 5.9 K/mm3 (4.0-10.0)
[2019-05-16 08:53] LABS: ALBUMIN 2.9 g/dl (3.4-5.0); BILIRUBIN,TOTAL 0.6 mg/dL (0.2-1); BLOOD UREA NITROGEN 28.3 mg/dL (7-18); CALCIUM 8.4 mg/dL (8.5-10.1); MAGNESIUM 2.2 mg/dL (1.8-2.4); TOT PROT 5.7 g/dl (6.4-8.2)
[2019-05-16] MEDS: METOPROLOL TARTRATE 25 MG TABLET (FP) PO SCH (09:26)
[2019-05-16] MEDS: LISINOPRIL 10 MG TABLET (FP) PO SCH (09:28)
[2019-05-16] MEDS: levETIRAcetam 500 MG TABLET (FP) PO SCH (09:28)
[2019-05-16] MEDS: FINASTERIDE 5 MG TABLET (FP) PO SCH (09:28)
[2019-05-16] MEDS: MEMANTINE HCL 28 MG PO SCH (09:29)
[2019-05-16] MEDS: ASPIRIN COATED 81 MG TABLET.EC PO SCH (09:29)
[2019-05-16] MEDS: CLOPIDOGREL BISULFATE 75 MG TABLET (FP) PO SCH (09:29)
[2019-05-16] MEDS ORDERED: PT OWN MED DRAWER 7, Y5N ONE ×2 (09:31→17:11)
[2019-05-16] MEDS ORDERED: DONEPEZIL HCL 5 MG TABLET (FP) PO SCH (10:00)
--- NOTE | 2019-05-16 14:50 | DS ---
Physical Exam: SUBJECTIVE: Patient seen and examined at the bedside. aide at the bedside. patient is alert, with episodes of confusion. offers no compliants. on lynn for safety OBJECTIVE: patient has a neurologist that he can follow up outpatient. keppra levels pending. Patient is an 84 year old male with past medical history significant for hypertension, hyperlipidemia, diabetes mellitus, CAD/LA 10 years ago s/p 2 stents (on plavix), BPH, seizure (one seizure after a fall and reported compliant on Keppra), dementia/Alzheimer's, and traumatic ICH 11/2017 who presented with altered mental status now noted with troponin leak. Cardiology consulted and recommends echo + medical management with serial trops. Vital Signs Period Temp Pulse Resp BP Sys/Hernadez Pulse Ox Last 24 Hr 97.4 F-99.4 F 43-99 16-18 98-111/48-76 93-98 PHYSICAL EXAM GENERAL: The patient is awake, alert, confused HEAD: Normal with no signs of trauma. EYES: PERRL, extraocular movements intact, sclera anicteric, conjunctiva clear. ENT: Ears normal, nares patent, oropharynx clear without exudates, moist mucous membranes. NECK: Trachea midline, full range of motion, supple. LUNGS: Breath sounds equal, diminished bilaterally HEART: Regular rate and rhythm ABDOMEN: Soft, nontender, nondistended, normoactive bowel sounds, no guarding, no rebound, no hepatosplenomegaly, no masses. EXTREMITIES: no edema. NEUROLOGICAL: awake, alert LABS Laboratory Results - last 24 hr 05/14/19 05/15/19 05/15/19 06:50 17:19 21:29 WBC RBC Hgb Hct MCV MCH MCHC RDW Plt Count MPV Absolute Neuts (auto) Neutrophils % Lymphocytes % Monocytes % Eosinophils % Basophils % Nucleated RBC % Sodium Potassium Chloride Carbon Dioxide Anion Gap BUN Creatinine Est GFR (CKD-EPI)AfAm Est GFR (CKD-EPI)NonAf POC Glucometer 290 292 Random Glucose Calcium Magnesium Total Bilirubin AST ALT Alkaline Phosphatase Total Protein Albumin Vitamin B12 Levetiracetam Cancelled RPR Titer 05/16/19 05/16/19 05/16/19 05:52 07:05 07:05 WBC RBC Hgb Hct MCV MCH MCHC RDW Plt Count MPV Absolute Neuts (auto) Neutrophils % Lymphocytes % Monocytes % Eosinophils % Basophils % Nucleated RBC % Sodium 147 H Potassium 4.0 Chloride 110 H Carbon Dioxide 26 Anion Gap 11 BUN 28.3 H Creatinine 1.0 Est GFR (CKD-EPI)AfAm 79.75 Est GFR (CKD-EPI)NonAf 68.81 POC Glucometer 190 Random Glucose 169 H Calcium 8.4 L Magnesium 2.2 Total Bilirubin 0.6 AST 16 ALT 18 Alkaline Phosphatase 78 Total Protein 5.7 L Albumin 2.9 L Vitamin B12 292 Levetiracetam RPR Titer Nonreactive 05/16/19 05/16/19 07:05 11:41 WBC 5.9 RBC 3.73 L Hgb 11.2 L Hct 33.6 L MCV 90.1 MCH 30.0 MCHC 33.3 RDW 14.6 Plt Count 175 MPV 8.8 Absolute Neuts (auto) 4.1 Neutrophils % 69.4 Lymphocytes % 17.7 Monocytes % 9.8 Eosinophils % 2.5 Basophils % 0.6 Nucleated RBC % 0 Sodium Potassium Chloride Carbon Dioxide Anion Gap BUN Creatinine Est GFR (CKD-EPI)AfAm Est GFR (CKD-EPI)NonAf POC Glucometer 194 Random Glucose Calcium Magnesium Total Bilirubin AST ALT Alkaline Phosphatase Total Protein Albumin Vitamin B12 Levetiracetam RPR Titer HOSPITAL COURSE: Date of Admission:05/13/19 Date of Discharge: 05/16/19 Altered Mental Status Changes Workup w/CT scan of head negative for hemorrhage or acute intracranial findings. Patient has history of ICH (2018), afebrile, normal WBC TSH normal Neurology consulted- Dr. Holcomb, recommendations noted and appreciated b12 normal, keppra levels pending. patient has a neurologist that he follows up with and will follow up outpatient mental status back to baseline per [employer] NSTEMI/ HX CAD with prior stents Troponin elevated a 1.65. EKG with no acute ischemic changes, RBBB Aspirin and statin therapy Continue with plavix 75mg daily Metoprolol tartrate 25mg twice daily echocardiogram ordered to evaluate LV function Cadiology following, recommendations appreciated patient can follow up outpatient. discontinue tele per cardiology. Seizures, mental status changes Continue with Keppra Keppra level pending Neurology consulted-Dr. Holcomb Hypertension Controlled Continue with metoprolol tartrate and lisinopril Diabetes Mellitus BGM before meals and at bedtime Insulin sliding scale restart levemir Hyperlipidemia Atorvastatin 20mg Dementia/Alzheimer's Disease Continue with memantine BPH Continue with finesteride FEN low sodium diet, monitor electrolytes DVT TEDS and SCD's Minutes to complete discharge: 60 Discharge Summary Reason For Visit: NSTEMI Current Active Problems Altered mental status (Acute) Elevated troponin (Acute) Condition: Guarded - Instructions Diet, Activity, Other Instructions: Mr Lawrence: Please follow up with your primary care doctor and neurologist on discharge. Your Keppra levels are pending,therefore, continue the same level of Keppra as you were doing at home. Follow ups Please follow up with your PCP and neurologist. New Medications: Metoprolol 25mg TWICE per day. refills to be obtained by your primary care doctor. We called in 60 pills. Proscar 5 once daily for urinary retention. Thank you for allowing us to care for you Disposition: HOME - Home Medications Comprehensive Discharge Medication List: Ambulatory Orders Atorvastatin Ca [Lipitor] 20 mg PO HS 05/13/19 Clopidogrel Bisulfate [Plavix] 75 mg PO DAILY 05/13/19 Furosemide [Lasix] 20 mg PO ASDIR 05/13/19 Insulin (Novolog) [Novolog -] 0 units SQ [facility]IR 05/13/19 Insulin Glargine,Hum.rec.anlog [Lantus] 14 unit SQ HS 05/13/19 Latanoprost 0.005% Eye Drops [Xalatan 0.005% Eye Drops -] 1 drop OU HS 05/13/19 Lisinopril [Prinivil] 10 mg PO DAILY 05/13/19 Memantine HCl [Memantine HCl ER] 28 mg PO DAILY 05/13/19 levETIRAcetam [Keppra -] 500 mg PO BID 05/13/19 Finasteride [Proscar -] 5 mg PO DAILY #90 tablet 05/16/19 Metoprolol Tartrate [Lopressor -] 25 mg PO BID #60 tablet 05/16/19 This patient is new to me today: No Emergency Visit: Yes ED Registration Date: 05/13/19 Care time: The patient presented to the Emergency Department on the above date and was hospitalized for further evaluation of their emergent condition. Critical Care patient: No - Discharge Referral Referred to [facility] Med P.C.: No
[2019-05-16 15:25] VITALS: BP 112/51; PULSE 57; TEMP 99.4
[2019-05-16 18:07] LABS: CK-MM 100 % (97-100)
== END 2019-05-16 17:42 | disposition home or self-care (01) | DRG 56 ==
LOC: FER 16:36 → J4S 21:35
PROVIDERS: ADMIT Internal Medicine; ATTEND Nurse Practitioner Family
DX: G20 Parkinson's disease (principal); I21.4 Non-ST elevation (NSTEMI) myocardial infarction; R41.82 Altered mental status, unspecified; E78.00 Pure hypercholesterolemia, unspecified; I25.10 Atherosclerotic heart disease of native coronary artery without angina pectoris; I25.2 Old myocardial infarction; I10 Essential (primary) hypertension; E11.9 Type 2 diabetes mellitus without complications; N40.0 Benign prostatic hyperplasia without lower urinary tract symptoms; R56.9 Unspecified convulsions; I45.10 Unspecified right bundle-branch block; G30.9 Alzheimer's disease, unspecified; F02.80 Dementia in other diseases classified elsewhere, unspecified severity, without behavioral disturbance, psychotic disturbance, mood disturbance, and anxiety; Z95.5 Presence of coronary angioplasty implant and graft
CPT/HCPCS: 36415; 70450-TC; 71045-TC-FY; 80048; 80053; 80061; 80177; 81003; 82550; 82552; 82553; 82607; 82962; 83036; 83721; 83735; 83880; 84100; 84443; 84484; 85025; 85027; 85610; 85730; 86593; 87086; 93005; 93010; 93306-TC; 97116-GP; 97162-GP; 99285-25